=== PATIENT | female | born 1945 | race Caucasian/White ===

== ENCOUNTER 2017-08-29 07:51 | Outpatient (CLI) | payer MEDICARE, BC ==
--- NOTE | 2017-08-29 13:42 | PET ---
PET CT: HISTORY: 72-year-old female with solitary pulmonary nodule. TECHNIQUE: PET scanning with CT attenuation correction was performed from the base of the brain through the pro ximal thighs following the intravenous administration of 12 mCi F18-FDG in the left antecubital henrique a. COMPARISON: None. CORRELATION: CT chest dated 08/22/17. FINDINGS: There is hypermetabolic activity in the 1.5 x 1.3 x 1.3 cm right upper lobe apical segment nodule no roman on the CT scan with a SUV of 5.1. No other hypermetabolic parenchymal lung nodules are seen. No hypermetabolic mediastinal, hilar, axillary, cervical, or abdominopelvic lymph nodes are identifi ed. No FDG-avid lesions are seen in the liver, adrenal glands, or the skeleton. There is physiologic activity in the GI and tracts, heart, and visualized portions of the brain. The CT scan used for attenuation correction demonstrates no evidence of pleural effusions or ascites . IMPRESSION: Findings suspicious for right lung malignancy. No evidence of metastatic disease. POS: [facility]
== END 2017-08-29 07:52 | disposition home or self-care (01) ==
LOC: PET 07:51
PROVIDERS: ATTEND Internal Medicine
DX: R91.1 Solitary pulmonary nodule (principal)
CPT/HCPCS: 78815; A9552

== ENCOUNTER 2017-09-28 09:12 | Outpatient (CLI) | payer MEDICARE, BC ==
--- NOTE | 2017-10-02 09:58 | PFT ---
PATIENT HISTORY: HEIGHT: 55 IN WEIGHT:134 LBS SMOKER: YES HOW LON YEARS PACKS PER DAY: 1.5 PRODUCTIVE COUGH: YES LUNG DISEASE: LUNG NODULE PHYSICIAN INTERPRETATION FINAL REPORT: The patient had good effort and cooperation. PFT data is as follows, FVC 1.72 (89%), FEV1 1.07 (83%), FEV1/FVC 0.62. Diffusion 12.41 (81%). The FEV1 and FVC both fall within the lower limits of normal. The ratio is consistent with obstructive airflow limitation. Diffusion capacity is normal. Compared to 05/2017 (prior to initiation of chronic medication), there has been a significant improvement in the FEV1, FVC, and diffusion capacity. IMPRESSION: Overall, these pulmonary function studies are consistent with mild obstructive lung disease with gas exchange at the lower limits of normal. Line Supervisor: JOMAR [employer] Engine [employer] Consultant: JOMAR ALONSO
== END 2017-09-28 09:13 | disposition home or self-care (01) ==
LOC: CP 09:12
PROVIDERS: ATTEND Internal Medicine
DX: R91.1 Solitary pulmonary nodule (principal)
CPT/HCPCS: 94060; 94729

== ENCOUNTER 2017-10-18 06:03 | Inpatient (IN) | payer MEDICARE, BC ==
[2017-10-18] MEDS ORDERED: CEFAZOLIN/Water 2 GM/20 ML SYRINGE ONE ×2 (06:24→18:14)
[2017-10-18 06:58] LABS: Hemoglobin 14.3 g/dL (12.0-16.0); Mean Corpuscular Hemoglobin 29.6 pg (27.0-31.0); Mean Corpuscular Volume 92.6 fl (81.0-99.0); Mean Platelet Volume 7.3 fL (7.4-10.4); Platelet Count 324 thou/uL (130-400); RBC Distribution Width 13.5 % (11.5-14.5); Red Blood Cell (RBC) Count 4.84 mill/uL (4.20-5.40); White Blood Cell (WBC) Count 7.9 thou/uL (4.8-10.8)
[2017-10-18] MEDS ORDERED: Midazolam HCl 2 mg/2 ml Vial ONE (07:04)
[2017-10-18 07:08] LABS: Anion Gap 18 mmol/L (10-20); BUN (Urea Nitrogen) 26 mg/dL (9.8-20.1); Calc. Creatinine Clearance 60 mL/min (70-130); Calcium 10.2 mg/dL (7.8-10.44); Carbon Dioxide 25 mmol/L (23-31); Chloride 102 mmol/L (98-107); Estimated GFR-MDRD 69; Glucose 115 mg/dL (83-110); Potassium 4.7 mmol/L (3.5-5.1); Sodium 140 mmol/L (136-145)
[2017-10-18 07:15] LABS: INR-International Normal Ratio 0.9; PTT 33.8 SEC (22.9-36.1); Prothrombin Time 12.3 SEC (12.0-14.7)
[2017-10-18] MEDS ORDERED: Fentanyl 100 MCG/2 ML VIAL ONE ×5 (07:27→12:03)
[2017-10-18] MEDS ORDERED: Ondansetron HCl/PF 4 MG/2 ML Vial IVP PRN ×2 (08:15→09:09)
[2017-10-18] MEDS ORDERED: Zolpidem Tartrate 5 MG TAB PO PRN (08:15)
[2017-10-18] MEDS ORDERED: Naloxone HCl 0.4 mg/ml Vial IVP PRN (08:15)
[2017-10-18] MEDS ORDERED: Bupivacaine 0.25% 10 ML VIAL EPIDURAL PRN (08:15)
[2017-10-18] MEDS ORDERED: diphenhydrAMINE 50 MG/ML VIAL IM PRN (08:15)
[2017-10-18] MEDS ORDERED: Promethazine HCl 25 MG/ML VIAL IM PRN ×2 (08:15→09:09)
[2017-10-18] MEDS ORDERED: Eucerin (Mineral Oil/Petrolatum,White) 30 gm Jar TOP PRN (08:15)
[2017-10-18] MEDS ORDERED: diphenhydrAMINE 25 MG CAP PO PRN (08:15)
[2017-10-18] MEDS ORDERED: traMADol HCl 50 MG TAB PO PRN ×2 (08:15)
[2017-10-18] MEDS ORDERED: Fentanyl/Bupivacaine 250 ML in Premix Bag 1 BAG EPIDURAL SCH (08:15)
[2017-10-18] MEDS ORDERED: Promethazine HCl 25 MG SUPP PR PRN (08:15)
[2017-10-18] MEDS ORDERED: HYDROcodone/Acetaminophen 5/325 mg Tablet PO PRN ×5 (08:15→23:14)
[2017-10-18] MEDS ORDERED: Naloxone HCl 0.4 mg/ml Vial IV PRN (08:15)
[2017-10-18] MEDS ORDERED: diphenhydrAMINE 50 MG/ML VIAL IVP PRN (08:15)
[2017-10-18] MEDS ORDERED: Bupivacaine/Epinephrine 0.25% 30 ML VIAL ONE (08:27)
[2017-10-18] MEDS ORDERED: Promethazine HCl 25 MG/ML VIAL SLOW IVP PRN (09:09)
[2017-10-18] MEDS ORDERED: Albuterol Sulfate HFA (OR ONLY) ONE (09:35)
--- NOTE | 2017-10-18 11:16 | OP ---
DATE OF PROCEDURE: 10/18/2017 PREOPERATIVE DIAGNOSIS: Right upper lobe lung mass - PET positive. POSTOPERATIVE DIAGNOSIS: Right upper lobe nonsmall cell lung cancer. PROCEDURE PERFORMED: Right thoracotomy with right upper lobectomy and mediastinal lymph node dissect ion. SURGEON: Juventino Bai M.D. ANESTHESIA: General endotracheal. ESTIMATED BLOOD LOSS: Less than 100. DRAINS: A 32-English chest tubes x2. SPECIMENS 1. Level 2R, 4R, 9R and 7 lymph nodes sent for routine pathologic exam. 2. Right upper lobe sent for frozen section on the mass and bronchial margin - mass showed a nonsmal l cell lung cancer with negative bronchial margin. PROCEDURE IN DETAIL: After consent was obtained, the patient was brought to the operating room and p laced in the supine position on the operating room table. Appropriate anesthetic monitor was placed and general endotracheal anesthesia induced. A right-sided 7-English subclavian central line was plac ed and secured to the skin with a silk suture. Sterile dressing was applied. The patient was placed in the left lateral decubitus position. Joints were appropriately padded and SCDs used. Right ches t wall was prepped and draped in usual sterile fashion. Posterolateral thoracotomy incision was made . Dissection through the platysma was obtained with electrocautery. Serratus was spared. The fifth interspace was entered. The lung was deflated and inflated nicely. On exploration, there is no ruma dence of pleural implants. The hilum was mobilized. Levels 7 and 9 lymph nodes were taken. Paratra cheal level 2R and 4R lymph nodes were also taken. After the hilum was mobilized, the right upper lo be pulmonary veins were identified and divided with a vascular stapler. Apical branches of the right -sided pulmonary artery were divided with the stapler. The fissure was then explored. Once the pulm onary artery was encountered within the fissure, the anterior major fissure was divided with the stap ler. This allowed us to free up the remainder of the pulmonary artery branches going into the upper lobe. The posterior fissure was then divided with multiple JOSE ANTONIO stapler fires. The bronchus was isol ated and clamped with a JOSE ANTONIO stapler. I was not happy with the aeration of the lower and middle lobes . We used the bronchoscope to evaluate the endotracheal tube and had to manipulate the tube to obtai n good aeration of the lower middle lobes. Once this was performed, the upper lobe bronchus was divi ded with a JOSE ANTONIO stapler. Specimen was sent for the above pathologic exam, which returned as nonsmall cell lung cancer. A 32-English chest tubes were placed in the mediastinum. The chest was filled with water and the bron chial stump was tested under 40 mm of pressure and was airtight. After irrigating the chest, the mid dle and lower lobes were reinflated. Middle lobe was secured to the lower lobe with three separate 2 -0 Vicryl sutures. The pericostal spaces were infiltrated with 0.25% Marcaine with epinephrine. The ribs were reapproximated with #1 Vicryl. The pericostal sutures were then tied. Wounds were irriga roman and closed in multiple layers, and Dermabond applied to the skin. The patient tolerated the proc edure well, was awakened, extubated, and transferred to the recovery room in stable condition. Needl e, sponge, and instrument counts were all reported as correct at the end of the procedure.
[2017-10-18] MEDS ORDERED: Propofol 200 MG/20 ML VIAL ONE (13:01)
[2017-10-18] MEDS ORDERED: Ondansetron HCl/PF 4 MG/2 ML Vial ONE (13:01)
[2017-10-18] MEDS ORDERED: Lidocaine 1% PF 5 ML VIAL ONE (13:01)
[2017-10-18] MEDS ORDERED: Dexamethasone 20 MG/5 ML VIAL ONE (13:01)
[2017-10-18] MEDS ORDERED: ePHEDrine/0.9% NaCl/PF SYRINGE 50 mg/10 ml ONE (13:01)
[2017-10-18] MEDS ORDERED: Glycopyrrolate 0.2 MG/ML 5 ML SYRINGE ONE (13:01)
--- NOTE | 2017-10-18 13:02 | RAD ---
PORTABLE CHEST ONE VIEW: 10/18/2017 11:47 a.m. HISTORY: Right lung cancer. Thoracotomy. FINDINGS: Postop changes in the right hilar region. A right subclavian central line is present with the tip in the projection of the right atrium. Two right-sided chest tubes are noted. The heart size is dionicio l. The aorta is tortuous. There is subcutaneous emphysema in the right lower lateral chest wall. N o definite pneumothoraces are seen. POS: [facility]
[2017-10-18] MEDS ORDERED: PHENYLEPHRINE-NS 100 MCG/ML 10 ML SYRINGE ONE (13:11)
[2017-10-18] MEDS ORDERED: Ropivacaine 0.2% HCl/PF 20 ML ONE (13:29)
[2017-10-18] MEDS ORDERED: Phenylephrine 10 MG/NS 250 ML 250 ML IVPB SCH (13:30)
[2017-10-18] MEDS ORDERED: PROVENTIL INHALER 6.7 G (200 INHALATIONS) INH PRN (15:45)
[2017-10-18] MEDS ORDERED: Phenylephrine 10 MG/NS 250 ML 250 ML IVPB PRN (15:45)
[2017-10-18] MEDS ORDERED: diphenhydrAMINE 50 MG/ML VIAL ONE (19:17)
[2017-10-18] MEDS: CEFAZOLIN/Water 2 GM/20 ML SYRINGE SLOW IVP SCH (23:44)
[2017-10-18] MEDS: Sodium Chloride 0.9% 1,000 ML IV SCH ×2 (23:44→23:45)
[2017-10-19] MEDS: CEFAZOLIN/Water 2 GM/20 ML SYRINGE SLOW IVP SCH ×3 (00:59→17:48)
[2017-10-19] MEDS: HYDROcodone/Acetaminophen 5/325 mg Tablet PO PRN ×2 (04:14→20:07)
[2017-10-19 05:55] LABS: #Lymphocytes 2.2 thou/uL (1.20-3.40); #Monocytes 1.4 thou/uL (0.11-0.59); #Neutrophils 8.7 thou/uL (1.40-6.50); %Basophils 0.2 % (0.0-1.0); %Eosinophils 0.1 % (0.0-10.0); %Lymphocytes 17.6 % (21.0-51.0); %Monocytes 11.4 % (0.0-10.0); %Neutrophils 70.7 % (42.0-75.0); Hemoglobin 12.5 g/dL (12.0-16.0); Mean Corpuscular Hemoglobin 29.7 pg (27.0-31.0); Mean Corpuscular Volume 95.7 fl (81.0-99.0); Mean Platelet Volume 7.7 fL (7.4-10.4); Platelet Count 279 thou/uL (130-400); RBC Distribution Width 13.7 % (11.5-14.5); White Blood Cell (WBC) Count 12.4 thou/uL (4.8-10.8)
[2017-10-19 06:33] LABS: Anion Gap 10 mmol/L (10-20); BUN (Urea Nitrogen) 21 mg/dL (9.8-20.1); Calc. Creatinine Clearance 72 mL/min (70-130); Calcium 8.6 mg/dL (7.8-10.44); Carbon Dioxide 28 mmol/L (23-31); Chloride 104 mmol/L (98-107); Estimated GFR-MDRD 79; Glucose 108 mg/dL (83-110); Potassium 4.3 mmol/L (3.5-5.1); Sodium 138 mmol/L (136-145)
--- NOTE | 2017-10-19 08:22 | RAD ---
PORTABLE CHEST 1 VIEW: DATE: 10/19/17. TIME: 4:36 a.m. HISTORY: Right lung cancer, thoracotomy. FINDINGS: Line and tube placements are unchanged in position. Postop changes in the right hilar region are aga in seen. A tiny right apical pneumothorax is noted which was not seen on the previous study. There is patchy consolidation in the right medial lung. The heart size is stable. The left lung is clear. POS: [facility]
[2017-10-19] MEDS: Sodium Chloride 0.9% 1,000 ML IV SCH ×2 (08:58→20:17)
[2017-10-19] MEDS ORDERED: FLU VACC TS2017-18 (>65YR) 0.5 ML SYRINGE IM ONE (09:00)
[2017-10-19] MEDS ORDERED: ANORO ELLIPTA INH SCH (09:00)
[2017-10-19] MEDS: Hydrochlorothiazide 25 MG TAB PO SCH (09:43)
[2017-10-19] MEDS: Losartan 25 MG TAB PO SCH (09:43)
[2017-10-19] MEDS ORDERED: predniSONE 20 MG TAB PO SCH (17:30)
--- NOTE | 2017-10-19 18:15 | CON ---
DATE OF CONSULTATION: 10/19/2017 SERVICE: Pulmonary Medicine. REASON FOR CONSULTATION: [facility] patient. HISTORY OF PRESENT ILLNESS: The patient is a very pleasant 72-year-old white female with past medical history significant for pulmonary nodule. It was subjected to biopsy 2 years ago and was nondiagnostic. We elected to follow with serial CT scans and it showed minimal growth over a protracted course. As such, PET scan was done and it was barely PET positive. As such, we elected to perform an open biopsy of this thing and on frozen, it turned out to be non- small cell lung cancer. As such, she underwent a lobectomy. She is postop day #1 from this surgery and is doing okay. Her pain is under adequate control right now, but in order to achieve that, it affects her blood pressure a little bit. Urine output is good. Her mentation is okay. She finds herself a little bit sleepy because of the pain medication. She has some pain that prevents her from taking deep breaths or coughing. She presented to the hospital and is in usual state of health. PHYSICAL EXAMINATION: VITAL SIGNS: Afebrile, pulse 118/59, respirations 20, saturation 95% on 2 liters nasal cannula. GENERAL: The patient is awake, but somnolent. No apparent distress. LUNGS: Decent air entry. There is a prolonged expiratory phase with some wheezing present. HEART: Normal rate, regular. ABDOMEN: Soft, nontender, nondistended. Bowel sounds are positive. MUSCULOSKELETAL: No cyanosis or clubbing. There is no pitting in the bilateral lower extremities. NEUROLOGIC: Grossly nonfocal. PAST MEDICAL HISTORY: 1. COPD. 2. Anxiety disorder. 3. Hypertension. 4. Nephrolithiasis. 5. Parathyroid disease. 6. Non-small cell lung cancer. PAST SURGICAL HISTORY: 1. Excision of vulvar lesion (genital warts). 2. Parathyroidectomy. 3. History of right breast cancer. 4. Transcutaneous pulmonary biopsy of a pulmonary nodule. 5. Upper lobectomy. SOCIAL HISTORY: The patient has an 12-xkms-etbs history of smoking. She denies any alcohol or illicit drug use. She has no exposure to chemicals, dust , asbestos, or tuberculosis. FAMILY HISTORY: Noncontributory. ALLERGIES: VALIUM causes agitation. ASPIRIN and IBUPROFEN cause nausea. CIPRO causes anaphylaxis. MEDICATIONS: List of inpatient medications were reviewed. Couple of small updates were made. REVIEW OF SYSTEMS: General, head, ears, eyes, nose, throat, cardiovascular, respiratory, GI, , musculoskeletal, neurologic and skin is negative except as mentioned in the HPI. LABORATORY DATA: WBC 12.4, hemoglobin 12.5, platelets 279,000. INR 0.9. Basic metabolic profile is completely unremarkable. IMAGING: Chest x-ray demonstrates right-sided thoracostomy drain. There is an infiltrate in the right hilum. A very small pneumothorax is currently present. Volume loss is on the right. Interstitial markings are prominent. Clips were at the right hilum which were new. ASSESSMENT: 1. Acute hypoxic respiratory failure. 2. Chronic obstructive pulmonary disease with small exacerbation. 3. Right upper lobectomy, postop day #1. 4. Non-small cell cancer of the right upper lobe, status post lobectomy with lymph node biopsy, currently pending. PLAN: I have talked to anesthesia and because of marginally low blood pressures , we will hold the epidural for the time being and restart at half that dose, once she starts having increasing discomfort. If that does not help, a small bolus of fluid may be considered. The patient has extensive wheezing, particularly on the right. As such, I will empirically initiate her on a 5-day course of moderate dose of steroids. Antibiotic will be added. Pulmonary and Critical Care will continue to follow while the patient remains in this location. She has been counseled to make certain she continues to make efforts to take a deep breath and cough without holding it back in order to prevent her from having a postop complication in the next 5-10 days. 70 minutes have been devoted to this patient in various activities. For at least half of this time, I was at the bedside in direct patient interaction or coordinating care with the care team. For the remainder of the time I was immediately available to the patient in the hospital unit. CELESTE
[2017-10-20] MEDS: CEFAZOLIN/Water 2 GM/20 ML SYRINGE SLOW IVP SCH ×2 (02:35→11:19)
[2017-10-20] MEDS: Sodium Chloride 0.9% 1,000 ML IV SCH (06:38)
[2017-10-20] MEDS ORDERED: predniSONE 20 MG TAB PO SCH ×3 (08:00→10:30)
--- NOTE | 2017-10-20 08:57 | RAD ---
CHEST 1 VIEW: HISTORY: A 72-year-old female status post right thoracotomy. COMPARISON: 10/19/17. FINDINGS: Right subclavian catheter and [address] in place with minimal subcutaneous emphysema. The well-defined right apical pneumothorax is not definitely demonstrated, but there is still some scatte red lucency in the right apical region suggesting that there is still some persistent small pneumotho rax. There is right-sided volume loss and abnormal opacification in the right mid and lower lung zon e which appears to be somewhat more dense and opaque than on the prior study. IMPRESSION: Right-sided postoperative changes with abnormal opacity in the right mid and lower lung zone becoming more dense than on the prior study. Possible tiny residual right apical pneumothorax. Slightly pro gressive left-sided vascular congestion with some blunting of the left costophrenic angle. Continued short-term followup for clearing or stability. POS: [facility]
[2017-10-20] MEDS: Hydrochlorothiazide 25 MG TAB PO SCH (09:32)
[2017-10-20] MEDS: Losartan 25 MG TAB PO SCH (09:32)
[2017-10-20] MEDS: ANORO ELLIPTA INH SCH (09:33)
[2017-10-20] MEDS: Hydrocortisone Sod Succ/PF 100 mg/2 ml Vial IVP SCH ×2 (09:39→20:20)
[2017-10-20] MEDS ORDERED: cefTRIAXone\\ROCEPHIN 2 GM in Sodium Chloride 0.9% 100 ML IVPB SCH (10:00)
[2017-10-20] MEDS ORDERED: Sodium Chloride 0.9% 1,000 ML IV SCH (10:32)
[2017-10-20] MEDS ORDERED: Furosemide 20 MG/2 ML VIAL SLOW IVP SCH (10:45)
--- NOTE | 2017-10-20 11:29 | PRG ---
DATE OF SERVICE: 10/20/2017 SERVICE: Pulmonary Medicine. INTERVAL HISTORY: The patient is doing poorly from a respiratory standpoint. She has increased work of breathing. She has more wheezing and rhonchi. She indicates that she is having a little bit more difficulty catching her breath. Other than that, there has been no interval change to her condition. Her blood pressure has actually stabilized to touch. I asked her to cough and deep breathe. Even though, she indicates that she has adequate pain control at this time, she is not really able to do either one of these features. The reason is because she is probably full of air and has had a difficult time generating an expulsive cough. She is not getting her Anoro. This will be discontinued. We will just focus on giving her frequent nebulized medications. PHYSICAL EXAMINATION: VITAL SIGNS: Afebrile, pulse 75, blood pressure 163/58, respirations 16, saturation 91% on 3 liters nasal cannula. GENERAL: The patient is awake and alert. She is in mild respiratory distress. HEART: Normal rate, regular. ABDOMEN: Soft, nontender, nondistended. Bowel sounds are positive. LUNGS: Decreased air entry. There is a prolonged expiratory phase. I appreciate wheezing, rhonchi, and crackles. MUSCULOSKELETAL: No cyanosis or clubbing. She has trace pitting in the left upper extremity. GENITOURINARY: Cesar catheter in place. NEUROLOGIC: Grossly nonfocal. LABORATORY DATA: WBC 12.4, hemoglobin 12.5, platelets 279,000. INR 0.9. Basic metabolic profile is unremarkable with a creatinine of 0.72. IMAGING: Chest x-ray demonstrates increasing airspace disease on the right side with a likely pleural effusion. The area of the hematoma that I previously identified, may there will be partial collapse of some of the lung. This seems to be increasing in volume. There is two thoracostomy drains on the right. The left lung is relatively spared outside of a small density in the left recess of the costophrenic angle. ASSESSMENT: 1. Acute hypoxic respiratory failure. 2. Chronic obstructive pulmonary disease with acute exacerbation. 3. Status post right upper lobectomy. 4. Non-small lung cancer, stage is currently pending. 5. Possible atelectasis. PLAN: I performed physiotherapy on the patient today. If this is ineffective, we may need to intubate her and do a bronchoscopy to see whether or not there is a mucus plug that needs to be liberated. We will watch her very closely through the day. Critical care time: 30 minutes. CELESTE
--- NOTE | 2017-10-20 15:46 | RAD ---
SINGLE VIEW OF THE CHEST: Comparison: 10-20-17 Indication: Post-operative chest radiograph. Follow up. FINDINGS: Re-demonstration of thoracotomy tubes on the right as well as tunneled vascular catheter. There is pe rsistent, diffuse opacification of the right hemithorax. Fluid levels are present which may be on the basis of hydropneumothorax. A discrete pneumothorax component is not otherwise visualized. Left lung remains hyperinflated with interstitial prominence. There is enlargement of the cardiomediastinal si lhouette. IMPRESSION: Diffuse opacification right hemithorax. There is evidence to indicate fluid levels which could be on the basis of hydropneumothorax. Right sided thoracostomy tubes remain in place. Continued follow up i s recommended. POS: [facility]
[2017-10-20] MEDS: Midazolam HCl 2 mg/2 ml Vial ONE ×2 (18:23→18:24)
[2017-10-20] MEDS ORDERED: Propofol 1,000 MG/100 ML VIAL IV ONE (18:29)
[2017-10-20] MEDS ORDERED: Sedation Protocol FS SCH (18:45)
[2017-10-20] MEDS ORDERED: Lacri-Lube Opth Oint 3.5 GM TUBE EA EYE PRN (18:45)
[2017-10-20] MEDS ORDERED: Midazolam HCl 2 mg/2 ml Vial SLOW IVP SCH (19:30)
[2017-10-20] MEDS ORDERED: Sodium Chloride 0.9% 500 ML IV SCH (19:30)
[2017-10-20] MEDS ORDERED: Lorazepam 2 MG/ML VIAL SLOW IVP PRN (19:31)
[2017-10-20] MEDS ORDERED: DISCONTINUE PREVIOUS NARCOTIC PAIN MEDICATIONS AND BENZODIAZEPINES FS SCH (19:31)
[2017-10-20 19:36] LABS: Actual Bicarbonate (HCO3a) 27.2 mEq/L (22-26); Base Excess (BEa) -0.4 mEq/L (0 (+/-) 2.5); CO2 Tension 59.3 mmHg (35.0-45.0); Calcium, Ionized 1.2 mmol/L (1.12-1.30); Hematocrit-ABG 39.5 % (36.0-47.0); Hemoglobin (Hb) 11.4 g/dL (12.0-16.0); O2 Tension (PaO2) 68.2 mmHg (80.0-100.0); pH, Arterial 7.28 (7.35-7.45)
[2017-10-20 19:37] LABS: ALV-art Gradient 151.645 (0-20); Puncture Site RBRACH
[2017-10-20] MEDS ORDERED: fentaNYL Citrate/PF 2,000 MCG in Sodium Chloride 0.9% 60 ML IV SCH (19:45)
[2017-10-20] MEDS: Famotidine 20 MG TAB PER TUBE SCH (20:20)
[2017-10-20] MEDS: Piperacillin/Tazobactam 3.375 GM in Sodium Chloride 0.9% 100 ML IVPB SCH (20:20)
--- NOTE | 2017-10-20 21:35 | RAD ---
CHEST ONE VIEW: HISTORY: Ventilator. COMPARISON: Chest, one view, same day. FINDINGS: The patient is intubated with the endotracheal tube tip above the betsy approximately 2.5 cm. A aubrey tral venous catheter is in place with the tip at the cavoatrial junction. Thoracostomy tubes are pre sent. Improved aeration of the right lung. The left lung is relatively clear. IMPRESSION: 1. Improved aeration of the right lung. 2. Endotracheal tube tip 2.5 cm, craniad to the betsy. POS: [facility]
[2017-10-21] MEDS: Piperacillin/Tazobactam 3.375 GM in Sodium Chloride 0.9% 100 ML IVPB SCH ×4 (02:49→19:51)
[2017-10-21] MEDS: Propofol 1,000 MG/100 ML VIAL IV PRN (02:53)
--- NOTE | 2017-10-21 04:08 | OP ---
DATE OF SERVICE: 10/20/2017 SERVICE: Pulmonary Medicine. PROCEDURES: Fiberoptic bronchoscopy with: 1. Visual airway inspection. 2. Bronchial wash in the right lower lobe. 3. Evacuation of large mucus plug. PREPROCEDURE DIAGNOSES: 1. Acute hypoxic respiratory failure. 2. Atelectasis of the right lung. POSTPROCEDURE DIAGNOSES: 1. Acute hypoxic respiratory failure. 2. Atelectasis of the right lung. PROCEDURE FOURTH GRADE TEACHER: Allan Justin MD MEDICATIONS USED: Propofol, 90 mg push. PREANESTHESIA ASSESSMENT: The patient's medications and allergies were reviewed. The procedure was done urgently secondary to deteriorating clinical condition. DESCRIPTION OF PROCEDURE: A timeout was performed, identifying the correct procedure and patient wit h name and date of . A diagnostic fiberoptic bronchoscope was introduced through the endotrache al tube. The bronchoscope was advanced into the trachea where excessive amounts of green purulent sp utum were identified. It had moderate thickness to it. After this was adequately suctioned, a trach eobronchial tree inspection was carried out. The right upper lobe stump was intact and looked very h ealthy. All right middle lobe, right lower lobe, left upper lobe, lingula, and left lower lobe segme nts were identified. Anatomy was normal to the segmental level. Wash was obtained from the right lo wer lobe. Suctioning created some bleeding from the left lower lobe. After this was subsequently ev acuated, I could not identify clear source of that bleeding. Hemostasis was verified and the broncho scope was subsequently removed from the patient. FINDINGS: 1. No evidence of endobronchial disease was identified. 2. Right upper lobe bronchial stump was intact and healthy appearing. 3. Secretions were heavy and moderate in thickness. SPECIMENS OBTAINED: Bronchial wash from right lower lobe for microbiology. COMPLICATIONS: None. ESTIMATED BLOOD LOSS: 5 mL. FLUOROSCOPY TIME: None. DISPOSITION: The patient will recover on mechanical ventilation in the ICU.
--- NOTE | 2017-10-21 06:53 | OP ---
DATE OF PROCEDURE: 10/20/2017 SERVICE: Pulmonary Medicine. PROCEDURE PERFORMED: Endotracheal intubation. CONSENT: Procedure was performed urgently secondary to clinical condition and respiratory failure. I did discuss the risk associated with this procedure with the patient prior to initiating it. STAFF PHYSICIAN: Dr. lAlan Justin. MEDICATIONS USED: 1. Versed 2 mg IV push. 2. Etomidate 20 mg IV push. PREPROCEDURE DIAGNOSES: 1. Acute hypoxic respiratory failure. 2. Atelectasis of the right lung. POSTPROCEDURE DIAGNOSES: 1. Acute hypoxic respiratory failure. 2. Atelectasis of the right lung. DESCRIPTION OF PROCEDURE: Vital sign monitoring was accomplished by noninvasive hemodynamic monitori ng, pulse oximetry, and telemetry. In the supine position, the patient was preoxygenated with bag valve mask ventilation and maintained with saturations of 100%. Following induction of anesthesia, a GlideScope was inserted through the m outh offering clear identification of the posterior oropharynx and laryngeal structures with a grade 1 view. An endotracheal tube was visualized passing through the vocal cords. Placement was confirme d by condensation in the endotracheal tube and biaxillary chest auscultation. Endotracheal tube was secured at 21 cm, measured at the teeth. The patient was placed on mechanical ventilation with good return of volumes. Postprocedure x-ray, I demonstrate good location of the endotracheal tube within the trachea. ESTIMATED BLOOD LOSS: None. COMPLICATIONS: None.
[2017-10-21] MEDS: Hydrocortisone Sod Succ/PF 100 mg/2 ml Vial IVP SCH (07:52)
[2017-10-21] MEDS: Hydrochlorothiazide 25 MG TAB PO SCH (07:53)
--- NOTE | 2017-10-21 10:47 | RAD ---
PORTABLE CHEST: HISTORY: Post-thoracotomy. COMPARISON: 10/20/17. FINDINGS/IMPRESSION: The patient is rotated which distorts the chest. ET tube remains in place along with right chest tub es. Hazy opacity of the right lung again noted. There is cardiomegaly with evidence of vascular con gestion. POS: [facility]
[2017-10-21] MEDS: ANORO ELLIPTA INH SCH (11:46)
[2017-10-21] MEDS: Dextrose 5 %-0.45 % NaCl 1,000 ML IV SCH ×2 (11:51→23:16)
--- NOTE | 2017-10-21 12:10 | PRG ---
DATE OF SERVICE: 10/21/2017 SERVICE: Pulmonary Medicine. INTERVAL HISTORY: The patient is much improved from a cardiovascular and respiratory standpoint. He r breathing is much less labored. She is currently riding the ventilator. We are going to back off the amount of support that we give her. She is on a minimal amount of propofol and she is perfectly comfortable. Otherwise, there has been no interval change to her condition. I got a repeat chest x- ray and it shows good reexpansion of the lung. Thankfully, pathology came back. All the lymph nodes were negative. The adenocarcinoma of the right upper lobe had very good negative margins. PHYSICAL EXAMINATION: VITAL SIGNS: Afebrile, pulse 66, blood pressure 89/47, respirations 16, saturation 94% on 27% FIO2 a nd a PEEP of 5. GENERAL: The patient is intubated under the influence of minimal sedation. HEENT: Normocephalic, atraumatic. Sclerae are white, conjunctivae pink. Oral and nasal mucosa is m oist without lesions. LUNGS: Excellent air entry. There are extensive rhonchi throughout with a slightly prolonged expira tory phase, but I do not hear the wheezing or crackles any longer. HEART: Normal rate, regular. ABDOMEN: Soft, nontender, nondistended. Bowel sounds are positive. MUSCULOSKELETAL: No cyanosis or clubbing. There is no pitting in the bilateral lower extremities. NEUROLOGIC: Grossly nonfocal. LABORATORY DATA: Respiratory culture on the bronchial washing has very few epithelial cells. Many w [place] blood cells and red blood cells are present. There is a rare gram positive beau. Currently, the re is no evidence of infectious process. IMAGING: Chest x-ray demonstrates excellent reexpansion of the right lung. This film was severely r otated. ASSESSMENT: 1. Acute hypoxic respiratory failure. 2. Chronic obstructive pulmonary disease with acute exacerbation. 3. Right upper lobectomy. 4. Adenocarcinoma of the lung, stage I, status post right upper lobectomy with likely cure. 5. Atelectasis of the right lung, resolved. PLAN: We will continue our antibiotics, steroids, nebulized medications. I will leave her on mechan ical ventilation for the next 24 hours. Tomorrow morning, we will do a brief bronchoscopy to make ce rtain that her lung is clear of any mucous plugs. After this can be arranged, she will be extubated. We will need to aggressively mobilize her. CRITICAL CARE TIME: 30 minutes.
[2017-10-21] MEDS: Morphine 2 MG/ML SYRINGE SLOW IVP PRN ×2 (19:49→22:47)
[2017-10-21] MEDS: Famotidine 20 MG TAB PER TUBE SCH (19:51)
[2017-10-21] MEDS: Acetaminophen 325 MG TAB PO PRN (23:16)
[2017-10-22] MEDS: Morphine 2 MG/ML SYRINGE SLOW IVP PRN ×3 (01:47→20:26)
[2017-10-22] MEDS: Piperacillin/Tazobactam 3.375 GM in Sodium Chloride 0.9% 100 ML IVPB SCH ×4 (01:50→20:26)
[2017-10-22 04:47] LABS: Hemoglobin 9.7 g/dL (12.0-16.0); Red Blood Cell (RBC) Count 3.27 mill/uL (4.20-5.40); White Blood Cell (WBC) Count 10.5 thou/uL (4.8-10.8)
[2017-10-22 04:48] LABS: #Lymphocytes 1.7 thou/uL (1.20-3.40); #Monocytes 1.2 thou/uL (0.11-0.59); #Neutrophils 7.5 thou/uL (1.40-6.50); %Basophils 0.1 % (0.0-1.0); %Eosinophils 0.4 % (0.0-10.0); %Lymphocytes 16.3 % (21.0-51.0); %Monocytes 11.9 % (0.0-10.0); %Neutrophils 71.3 % (42.0-75.0); Mean Corpuscular HGB CONC 31.5 g/dL (32.0-36.0); Mean Corpuscular Hemoglobin 29.7 pg (27.0-31.0); Mean Corpuscular Volume 94.2 fl (81.0-99.0); Mean Platelet Volume 7.8 fL (7.4-10.4); Platelet Count 235 thou/uL (130-400); RBC Distribution Width 13.2 % (11.5-14.5)
[2017-10-22 05:10] LABS: Anion Gap 8 mmol/L (10-20); BUN (Urea Nitrogen) 20 mg/dL (9.8-20.1); Calc. Creatinine Clearance 83 mL/min (70-130); Calcium 8.4 mg/dL (7.8-10.44); Carbon Dioxide 29 mmol/L (23-31); Chloride 105 mmol/L (98-107); Estimated GFR-MDRD Greater than 90; Glucose 118 mg/dL (83-110); Potassium 3.3 mmol/L (3.5-5.1); Sodium 139 mmol/L (136-145)
[2017-10-22 05:13] LABS: Phosphorus 1.7 mg/dL (2.3-4.7)
[2017-10-22] MEDS: Propofol 1,000 MG/100 ML VIAL IV PRN ×2 (07:21→15:08)
[2017-10-22] MEDS ORDERED: Potassium Phosphate 30 MMOL in Sodium Chloride 0.9% 250 ML 250 ML IVPB SCH (07:30)
--- NOTE | 2017-10-22 11:30 | RAD ---
PORTABLE CHEST: HISTORY: Post thoracostomy. CCU followup. COMPARISON: 10/21/2017 FINDINGS: A right chest tube is noted. ET tube, central line, and NG tube appear in adequate position. Cardio megaly. Mild vascular congestion. Interstitial congestion. No pneumothorax. IMPRESSION: No significant interval change. POS: [facility]
[2017-10-22] MEDS: ANORO ELLIPTA INH SCH (13:38)
[2017-10-22] MEDS: Hydrochlorothiazide 25 MG TAB PO SCH (13:38)
[2017-10-22] MEDS: Dextrose 5 %-0.45 % NaCl 1,000 ML IV SCH (13:39)
--- NOTE | 2017-10-22 14:13 | PRG ---
DATE OF SERVICE: 10/22/2017 SERVICE: Pulmonary Medicine. INTERVAL HISTORY: The patient is doing okay from a respiratory standpoint. She continues to have si gnificant amounts of wheezing. She is moving decent air, much better than she did prior. There were no significant overnight events. She is getting some potassium phosphate right now and will need to give her another dose of potassium. Otherwise, we are looking at possibly extubating her today if s he does well with her spontaneous breathing trial and her pain is under good control on a good sedati on holiday. PHYSICAL EXAMINATION: VITAL SIGNS: Afebrile currently with a T-max overnight of 100.8, pulse 63, blood pressure 116/57, re spirations 18, saturation 99% on 30% FiO2 and PEEP of 5. GENERAL: Patient is intubated. She is on influence of some sedation, but is following commands and comfortable. HEENT: Normocephalic, atraumatic. Sclerae are white, conjunctivae pink. Oral and nasal mucosa is m oist without lesions. LUNGS: Decent air entry. Rhonchi are present throughout bilateral lung daniel. There is prolonged expiratory phase with polyphonic wheezing. HEART: Normal rate, regular. ABDOMEN: Soft, nontender, nondistended. Bowel sounds are positive. MUSCULOSKELETAL: No cyanosis or clubbing. There is no pitting in the bilateral lower extremities. NEUROLOGIC: Grossly nonfocal. LABORATORY DATA: WBC 10.5, hemoglobin 9.7, platelets 235,000. INR 0.9. PH 7.2, pCO2 59, pO2 68. P otassium 3.3. Phosphorus 1.7. Basic metabolic profile is otherwise unremarkable. Respiratory cultu re is negative and has some rare normal respiratory balwinder present only. IMAGING: Chest x-ray demonstrates persistent opening of the right lung. There is right-sided pleura l parenchymal opacification, which is essentially diffuse. There are two right-sided thoracostomy dr regina that are in decent position. There is some volume loss on the right lung compared to the lef t. Endotracheal tube remains 2 to 3 cm above the level of the betsy. A right IJ central venous cat heter is in decent position. ASSESSMENT: 1. Acute hypoxic respiratory failure. 2. Chronic obstructive pulmonary disease with acute exacerbation. 3. Right upper lobectomy. 4. Adenocarcinoma of the lung, stage I, status post right upper lobectomy with likely cure as lymph nodes and margins were clean. 5. Atelectasis of the right lung secondary to anemic cough, resolved. PLAN: We will perform a bronchoscopy once again today to see if we can clear out any debris that has accumulated in her lungs or that she has been able to liberate. After this, good sedation holiday a nd spontaneous breathing trial will be performed and if she meets criteria, extubation will be consid ered. If it sounds as though she has a weak cough, extubation will be postponed for 24 hours. CRITICAL CARE TIME: 30 minutes.
[2017-10-22] MEDS: Acetaminophen 325 MG TAB PO PRN (21:45)
[2017-10-22] MEDS: Famotidine 20 MG TAB PER TUBE SCH (21:46)
[2017-10-23] MEDS: Morphine 2 MG/ML SYRINGE SLOW IVP PRN ×2 (00:38→06:20)
[2017-10-23] MEDS: Piperacillin/Tazobactam 3.375 GM in Sodium Chloride 0.9% 100 ML IVPB SCH ×4 (01:46→21:05)
[2017-10-23 06:32] LABS: Hemoglobin 10.5 g/dL (12.0-16.0)
[2017-10-23 06:54] LABS: Anion Gap 14 mmol/L (10-20); BUN (Urea Nitrogen) 17 mg/dL (9.8-20.1); Calc. Creatinine Clearance 82 mL/min (70-130); Carbon Dioxide 26 mmol/L (23-31); Chloride 108 mmol/L (98-107); Estimated GFR-MDRD Greater than 90; Glucose 108 mg/dL (83-110); Magnesium 2.2 mg/dL (1.6-2.6); Potassium 4.2 mmol/L (3.5-5.1); Sodium 144 mmol/L (136-145)
--- NOTE | 2017-10-23 08:05 | RAD ---
PORTABLE AP CHEST XRAY: DATE: 10/23/17. HISTORY: Post thoracotomy. COMPARISON: 10/22/17. FINDINGS: Endotracheal tube, right subclavian central venous catheter, nasogastric tube, and 2 right-sided thor acostomy tubes remain in place and unchanged in position. No pneumothorax is visualized. There is v olume loss in the right hemithorax compared to the left. Pleural-based density at the right lung ape x is noted. Mild increased densities within the right lung are present. Multiple surgical clips ove rlie the mediastinum. The left lung is clear. Vascular calcifications are seen in the thoracic aort a. There is subcutaneous emphysema at the right lateral chest. IMPRESSION: Overall stable chest. POS: KRYSTIN
[2017-10-23] MEDS: ANORO ELLIPTA INH SCH (08:36)
[2017-10-23] MEDS: Hydrochlorothiazide 25 MG TAB PO SCH (08:36)
[2017-10-23] MEDS: Dextrose 5 %-0.45 % NaCl 1,000 ML IV SCH (08:36)
[2017-10-23] MEDS: Labetalol HCl 100 MG/20 ML VIAL SLOW IVP PRN ×3 (11:48→21:30)
[2017-10-23] MEDS ORDERED: Lorazepam 2 MG/ML VIAL SLOW IVP PRN (12:45)
[2017-10-23] MEDS: Lorazepam 2 MG/ML VIAL SLOW IVP PRN ×3 (13:11→23:38)
--- NOTE | 2017-10-23 15:18 | PRG ---
DATE OF SERVICE: 10/23/2017 SERVICE: Pulmonary Medicine. INTERVAL HISTORY: The patient is doing quite well from a respiratory standpoint. This morning, we p ut on spontaneous breathing trial and the better part of 45 minutes, she did fantastic. Toward the e nd of it, she started having a little bit of elevated blood pressures, though all of the other things looked okay. She appeared to be struggling. We put the fan on her and she seemed to calm down slig htly. As such, we are going to proceed with extubation, but there was no cuff leak. She is already on steroids for 2 days and when we intubated her, it was fairly tight squeeze. As such, we elected t o extubate her over a bougie. She demonstrated that she did not have any stridor after extubation. As such, she was placed on nasal cannula. She started having a little increased work of breathing an d was subsequently put BiPAP through humidified circuit. She was pulling on the BiPAP because it was uncomfortable. She indicated that hot air was felt like it was suffocating. As such, the heater wa s turned off. Everything seemed to settle down including blood pressures, volume, and oxygen saturat ion. She continued to be a little anxious. As such, we gave her a small dose of benzodiazepine. Th is settled her down very nicely and she is resting comfortably at this time. Otherwise, there were n o events overnight. PHYSICAL EXAMINATION: VITAL SIGNS: Afebrile, pulse 52, blood pressure 135/57, respirations 17, saturation 100% on 31% FiO2 and PEEP of 5. GENERAL: The patient is awake and alert. She is in no apparent distress. LUNGS: Much improved air entry. There is a slightly prolonged expiratory phase. Rhonchi are presen t bilaterally. HEART: Normal rate and regular. ABDOMEN: Soft, nontender, nondistended. Bowel sounds are positive. MUSCULOSKELETAL: No cyanosis or clubbing. No pitting in the bilateral lower extremities. NEUROLOGIC: Grossly nonfocal. LABORATORY DATA: WBC 10.5, hemoglobin 32.6, INR 0.9. Basic metabolic profile is completely unremark able with sodium of 144. Magnesium 2.2. Blood cultures x2 were negative. Respiratory culture is ne gative to date. IMAGING: Chest x-ray demonstrates stable chest. There is good aeration in the bilateral lung daniel . ASSESSMENT: 1. Acute hypoxic respiratory failure. 2. Chronic obstructive pulmonary disease with acute exacerbation. 3. Right upper lobectomy. 4. Adenocarcinoma of the lung, stage 1, status post curative right upper lobectomy with negative mar gins and negative lymph nodes. 5. Atelectasis of the right lung, resolved. PLAN: We will maintain the patient on BiPAP. She will certainly remain in the ICU for the next 24 h ours while we make an attempt to mobilize the best we can. We will give her a break in an hour. We will also give her break 3 times daily and increase as tolerated. Pulmonary or Critical Care will co donisue to follow while she remains in this location, but it would not surprise me if the patient yoandy olivares required reintubation. I hope to avoid that however. Her pain is under much better control. Hopefully, her cough will be much more vigorous at this time around and hopefully we will not be for robin to proceed with intubation. CRITICAL CARE TIME: 105 minutes.
[2017-10-23 17:30] LABS: Base Excess (BEa) 1.3 mEq/L (0 (+/-) 2.5); CO2 Tension 54.7 mmHg (35.0-45.0); Calcium, Ionized 1.2 mmol/L (1.12-1.30); Hematocrit-ABG 31.7 % (36.0-47.0); O2 Tension (PaO2) 75.7 mmHg (80.0-100.0); pH, Arterial 7.33 (7.35-7.45)
[2017-10-23 17:38] LABS: Puncture Site LR
[2017-10-23 17:39] LABS: ALV-art Gradient 76.335 (0-20)
--- NOTE | 2017-10-23 18:54 | RAD ---
PORTABLE CHEST ONE VIEW 10/23/17 at 4:41 p.m. HISTORY: Respiratory distress, Bi-Pap. FINDINGS/IMPRESSION: There has been interval removal of endotracheal and nasogastric tube since earlier exam of 5:12 a.m. from the same date. The remainder of the exam is otherwise stable. POS: PINEDA
[2017-10-24] MEDS: Labetalol HCl 100 MG/20 ML VIAL SLOW IVP PRN ×2 (00:26→01:45)
[2017-10-24] MEDS: Lorazepam 2 MG/ML VIAL SLOW IVP PRN ×3 (02:06→23:23)
[2017-10-24] MEDS: Piperacillin/Tazobactam 3.375 GM in Sodium Chloride 0.9% 100 ML IVPB SCH ×4 (04:34→20:43)
[2017-10-24] MEDS: Dextrose 5 %-0.45 % NaCl 1,000 ML IV SCH (05:04)
[2017-10-24 05:19] LABS: Anion Gap 10 mmol/L (10-20); BUN (Urea Nitrogen) 18 mg/dL (9.8-20.1); Calc. Creatinine Clearance 89 mL/min (70-130); Calcium 8.9 mg/dL (7.8-10.44); Carbon Dioxide 30 mmol/L (23-31); Chloride 104 mmol/L (98-107); Estimated GFR-MDRD Greater than 90; Glucose 130 mg/dL (83-110); Magnesium 2.1 mg/dL (1.6-2.6); Potassium 4.3 mmol/L (3.5-5.1); Sodium 140 mmol/L (136-145)
[2017-10-24] MEDS ORDERED: ALPRAZolam 0.25 MG TAB PO PRN (07:09)
[2017-10-24] MEDS ORDERED: Furosemide 40 MG/4 ML VIAL SLOW IVP SCH (07:15)
[2017-10-24] MEDS: ANORO ELLIPTA INH SCH (08:24)
--- NOTE | 2017-10-24 08:25 | RAD ---
CHEST ONE VIEW: History: Chest surgery. Follow up. Comparison: 10-23-17 FINDINGS: Cardiac silhouette is magnified and enlarged. Pulmonary vasculature is upper limits of normal. Medias tinum is midline with aortic calcification. Hemostasis clips over the right hilum are again demonstra roman. The right thoracostomy tubes and right subclavian central venous catheter remain in place. No ev idence of pneumothorax. panel monitor leads overlie the chest. IMPRESSION: 1. Stable post-operative appearance of the chest. POS: [facility]
[2017-10-24] MEDS: hydrALAZINE 20 MG/ML VIAL SLOW IVP PRN ×2 (11:54→22:31)
[2017-10-24 14:03] LABS: Actual Bicarbonate (HCO3a) 31.8 mEq/L (22-26); Base Excess (BEa) 5.8 mEq/L (0 (+/-) 2.5); CO2 Tension 53.3 mmHg (35.0-45.0); Calcium, Ionized 1.2 mmol/L (1.12-1.30); Hematocrit-ABG 37.2 % (36.0-47.0); Hemoglobin (Hb) 11.1 g/dL (12.0-16.0); O2 Tension (PaO2) 112.2 mmHg (80.0-100.0); pH, Arterial 7.39 (7.35-7.45)
[2017-10-24 14:04] LABS: ALV-art Gradient 177.675 (0-20); Puncture Site RB
--- NOTE | 2017-10-24 15:36 | RAD ---
ABDOMEN 1 VIEW: Date: 10/24/17 HISTORY: Dobbhoff placement. COMPARISON: None. FINDINGS: Dobbhoff tube is curled upon itself in the gastric fundus. IMPRESSION: Dobbhoff tube tip in gastric fundus. POS: OFF
[2017-10-25] MEDS: Piperacillin/Tazobactam 3.375 GM in Sodium Chloride 0.9% 100 ML IVPB SCH ×2 (02:54→07:51)
[2017-10-25] MEDS: Dextrose 5 %-0.45 % NaCl 1,000 ML IV SCH (03:36)
[2017-10-25 06:01] LABS: Anion Gap 10 mmol/L (10-20); BUN (Urea Nitrogen) 21 mg/dL (9.8-20.1); Calc. Creatinine Clearance 86 mL/min (70-130); Calcium 9.2 mg/dL (7.8-10.44); Carbon Dioxide 34 mmol/L (23-31); Chloride 101 mmol/L (98-107); Estimated GFR-MDRD Greater than 90; Glucose 166 mg/dL (83-110); Potassium 3.3 mmol/L (3.5-5.1); Sodium 142 mmol/L (136-145)
--- NOTE | 2017-10-25 07:59 | RAD ---
PORTABLE SEMIUPRIGHT FRONTAL CHEST RADIOGRAPH: DATE: 10/25/17. COMPARISON: 10/24/17. HISTORY: Evaluate chest following thoracotomy. FINDINGS: Stable right vascular catheter and stable right-sided chest tubes. Dobbhoff tube in place, extending into left upper quadrant. There is interstitial opacity in bilateral perihilar regions, right great er than left. There is hazy airspace disease in both lung bases, left greater than right. There is atherosclerotic calcification of the aortic arch. IMPRESSION: Lines and tubes as above. Interstitial and alveolar opacities bilaterally, stable. Continued follow up to resolution is recommended. POS: PINEDA
[2017-10-25] MEDS: Lorazepam 2 MG/ML VIAL SLOW IVP PRN ×3 (08:55→23:08)
--- NOTE | 2017-10-25 10:13 | PRG ---
DATE OF SERVICE: 10/24/2017 SERVICE: Pulmonary Medicine INTERVAL HISTORY: The patient did very poorly. Her mentation seems to be a pretty big issue. She i s horrendously agitated. I do not really have an organic cause for these episodes. That being said, whenever the BiPAP is removed for a very brief period of time, despite the fact that she has normal hemodynamics and normal oxygen, and moving fantastic air, she gets very agitated and uncomfortable. Typically, her blood pressure will spike. She then decompensates. She requires being put back on th e BiPAP. I have watched 2 of these episodes now. We have been able to get her through both of them without reintubation. That being said, she continues to do this, I am doubtful that we will be able to get her through this without having to repeat the intubation. We made multiple adjustments to sridevi e of her medications. In particular, Precedex was initiated. She cannot provide me any additional o f the history today. There were no overnight events otherwise. PHYSICAL EXAMINATION: VITAL SIGNS: Afebrile, pulse 58, blood pressure 97/56, respirations 17, saturation 100% on 30% FiO2. GENERAL: Patient is awake, but a little agitated. HEENT: Normocephalic, atraumatic. Sclerae are white, conjunctivae pink. Oral mucosa is moist witho ut lesions. LUNGS: Decent air entry. There is both rhonchi, and wheezing present. I do not appreciate any crac kles. HEART: Normal rate, regular. ABDOMEN: Soft, nontender, nondistended. Bowel sounds are positive. MUSCULOSKELETAL: No cyanosis or clubbing. No pitting in the bilateral lower extremities. NEUROLOGIC: Grossly nonfocal. LABORATORY DATA: Basic metabolic profile is completely unremarkable. Magnesium is normal. Blood cu ltures x2 are negative at 48 hours. Bronchial washing is not growing anything. IMAGING: Chest x-ray demonstrates a stable chest. Interstitial and alveolar opacities are present. Abdominal x-ray demonstrates good placement of the enteric catheter. ASSESSMENT: 1. Acute hypoxic respiratory failure. 2. Chronic obstructive pulmonary disease with acute exacerbation. 3. Right upper lobectomy for adenocarcinoma, stage I. 4. Atelectasis of the right lung, resolved. 5. Metabolic encephalopathy. PLAN: We will continue her BiPAP. She is tolerating this fairly well. We will give her p.r.n. dose s of Ativan. I have initiated her on Precedex. Hopefully, we can keep her brain comfortable so that her body is allowed to recover from this event. We encourage physiotherapy. Critical care time: 30 minutes.
[2017-10-25] MEDS: hydrALAZINE 20 MG/ML VIAL SLOW IVP PRN (10:16)
--- NOTE | 2017-10-25 10:16 | PRG ---
DATE OF SERVICE: 10/25/2017 SERVICE: Pulmonary Medicine. INTERVAL HISTORY: The patient has actually done very well on the Precedex. This morning, she is brenden ke and comfortable. She does have a little bit of increased work of breathing on her BiPAP break tod ay. My suspicion is that she will be able to come and go off of this medication. We will work on ge ntly decreasing the Precedex as time goes on to see if we can encourage her to bring up more secretio ns. Supportive care will be continued through the day. She is still little somnolent and can provid e me with additional elements of the history. She had no events overnight. PHYSICAL EXAMINATION: VITAL SIGNS: Afebrile. Pulse 56, blood pressure 137/50, respirations 18, saturation 97% on 31% FiO2 . HEENT: Normocephalic, atraumatic. Sclerae are white, conjunctivae pink. Oral and nasal mucosa is m oist without lesions. LUNGS: Decent air entry. There is prolonged expiratory phase with little wheezing. Rhonchi are pre sent, but clear with cough. HEART: Normal rate, regular. ABDOMEN: Soft, nontender, nondistended. Bowel sounds are positive. MUSCULOSKELETAL: No cyanosis or clubbing. There is no pitting in the bilateral lower extremities. NEUROLOGIC: Grossly nonfocal. LABORATORY DATA: Potassium 3.3. Basic metabolic profile is otherwise unremarkable/stable. BUN is u p trending and bicarbonate has bumped of 34. Magnesium 2.0 and stable. Blood cultures x2 and respir atory culture are negative to date. IMAGING: Chest x-ray demonstrates a stable chest. Her right-sided thoracostomy drain in good positi on. She has stable infiltrates including alveolar interstitial fullness. ASSESSMENT: 1. Acute hypoxic respiratory failure. 2. Chronic obstructive pulmonary disease with acute exacerbation. 3. Right upper lobectomy for removal of adenocarcinoma, stage I. 4. Atelectasis of the lung, resolved. 5. Metabolic encephalopathy, improving. PLAN: We will gently wean the Precedex off as time goes on. She should be given BiPAP breaks 3 time s daily and increase as tolerated. I will leave her normal saline where it is. We are going to cont inue the tube feeds for the next 24 hours. Hopefully, in 1-2 days, the patient will be able to katy ate longer breaks with clear mentation. Physiotherapy will be rescheduled 3 times a day or twice leonie ly. She clearly needs to remain in the ICU.
[2017-10-25] MEDS: Haloperidol Lactate 5 MG/ML VIAL IM PRN ×2 (10:52→16:40)
[2017-10-25] MEDS: ANORO ELLIPTA INH SCH (15:04)
[2017-10-26] MEDS: Dextrose 5 %-0.45 % NaCl 1,000 ML IV SCH ×3 (01:34→21:41)
[2017-10-26] MEDS: hydrALAZINE 20 MG/ML VIAL SLOW IVP PRN (04:06)
[2017-10-26] MEDS: Lorazepam 2 MG/ML VIAL SLOW IVP PRN (04:21)
[2017-10-26] MEDS: Haloperidol Lactate 5 MG/ML VIAL IM PRN (04:50)
[2017-10-26 05:59] LABS: #Eosinphils 0.1 thou/uL (0.0-0.7); #Lymphocytes 1.3 thou/uL (1.20-3.40); #Monocytes 1.3 thou/uL (0.11-0.59); #Neutrophils 9.6 thou/uL (1.40-6.50); %Basophils 0.1 % (0.0-1.0); %Eosinophils 0.7 % (0.0-10.0); %Lymphocytes 10.9 % (21.0-51.0); %Monocytes 10.2 % (0.0-10.0); %Neutrophils 78.1 % (42.0-75.0); Mean Corpuscular HGB CONC 30.6 g/dL (32.0-36.0); Mean Corpuscular Hemoglobin 29.3 pg (27.0-31.0); Mean Corpuscular Volume 95.6 fl (81.0-99.0); Platelet Count 292 thou/uL (130-400); RBC Distribution Width 13.1 % (11.5-14.5); Red Blood Cell (RBC) Count 3.42 mill/uL (4.20-5.40); White Blood Cell (WBC) Count 12.3 thou/uL (4.8-10.8)
[2017-10-26 06:20] LABS: Anion Gap 12 mmol/L (10-20); BUN (Urea Nitrogen) 23 mg/dL (9.8-20.1); Calc. Creatinine Clearance 84 mL/min (70-130); Calcium 9.8 mg/dL (7.8-10.44); Carbon Dioxide 36 mmol/L (23-31); Chloride 102 mmol/L (98-107); Estimated GFR-MDRD Greater than 90; Glucose 146 mg/dL (83-110); Potassium 3.7 mmol/L (3.5-5.1); Sodium 146 mmol/L (136-145)
--- NOTE | 2017-10-26 08:32 | RAD ---
PORTABLE CHEST: DATE: 10/26/17. PROVIDED CLINICAL HISTORY: Status post thoracotomy. FINDINGS: Comparison is made with the study dated 10/25/17. Lucency at the right lung apex could reflect pleura l gas. Right-sided chest tubes remain in place. Right-sided central line and enteric catheter again seen. Appearance of the pulmonary parenchyma is unchanged with respect to the prior study. IMPRESSION: Right apical lucency may reflect pleural gas. Otherwise, stable exam. POS: KRYSTIN
[2017-10-26] MEDS: ANORO ELLIPTA INH SCH (08:34)
[2017-10-26] MEDS ORDERED: Propofol 1,000 MG/100 ML VIAL IV ONE (09:43)
[2017-10-26] MEDS ORDERED: Sedation Protocol FS ONE (10:00)
[2017-10-26] MEDS ORDERED: Lacri-Lube Opth Oint 3.5 GM TUBE EA EYE PRN (10:00)
[2017-10-26] MEDS ORDERED: Sodium Chloride 0.9% 1,000 ML IV SCH (10:00)
--- NOTE | 2017-10-26 10:25 | PRG ---
DATE OF SERVICE: 10/26/2017 SERVICE: Pulmonary Medicine. INTERVAL HISTORY: The patient was doing poorly overnight. She never tolerated any breaks from the B iPAP yesterday very well. This morning, we attempted to give her BiPAP break again and almost immedi ately, she decompensated. She was short-winded and had increasing work of breathing. She became mor e encephalopathic. As such, we elected to intubate her. She will likely require tracheostomy throug h this hospital stay. I do not think she will need a feeding tube; however. I have updated the fami ly at bedside. PHYSICAL EXAMINATION: VITAL SIGNS: Afebrile, pulse 87, blood pressure 167/76, respirations 23, saturation 96% on 41% FiO2. GENERAL: The patient is awake and alert. Patient is intubated and encephalopathic. HEENT: Normocephalic, atraumatic. Sclerae are white, conjunctivae pink. Oral and nasal mucosa is m oist without lesions. LUNGS: Decent air entry. Rhonchi and wheezing are both present. No crackles. HEART: Normal rate, regular. ABDOMEN: Soft, nontender, nondistended. Bowel sounds are positive. MUSCULOSKELETAL: No cyanosis or clubbing. No pitting in the bilateral lower extremities. NEUROLOGIC: Grossly nonfocal. LABORATORY DATA: WBC 12.3, hemoglobin 10.0, platelets 292,000. INR 0.9. Sodium 146, bicarbonate 36 , and creatinine 0.58. Blood cultures x2 are negative. Respiratory cultures also unremarkable. IMAGING: Chest x-ray demonstrates excellent placement of endotracheal tube. There is a right hilar infiltrate. Outside of that, there is good expansion of the right lung with thoracostomy drains in p lace. I do not see any other acute cardiopulmonary abnormalities except for some interstitial fullne ss throughout the left lung. ASSESSMENT: 1. Acute hypoxic respiratory failure. 2. Chronic obstructive pulmonary disease with acute exacerbation. 3. Metabolic encephalopathy. 4. Hypernatremia. 5. Right upper lobectomy for removal of adenocarcinoma, stage 1. PLAN: We will continue Precedex and add a little propofol if needed after we intubate her. Multiple ventilator adjustments have been made at bedside in order to make certain the patient remains comfor table. She will likely go down for tracheostomy, but I do not think she needs a PEG tube at this santy e. She most likely will be able to transition out to an LTAC facility with a Dobbhoff tube in place as I think she will wean fairly quickly once we get her brain working correctly. Neurologically, she remains nonfocal. Supportive care will otherwise be continued. I will check a respiratory virus reji south to make certain the patient is not having any additional inflammation secondary to viruses. We w ill initiate tube feeds starting tomorrow morning as she had extraordinarily high residuals today. Jon harish will give her a liter of IV fluids and initiate a little bit of free water as the patient does michael pace demonstrated contraction alkalosis. CRITICAL CARE TIME: 50 minutes.
[2017-10-26 10:41] LABS: Actual Bicarbonate (HCO3a) 33.4 mEq/L (22-26); Base Excess (BEa) 7.3 mEq/L (0 (+/-) 2.5); CO2 Tension 57.1 mmHg (35.0-45.0); Calcium, Ionized 1.2 mmol/L (1.12-1.30); Hematocrit-ABG 26.3 % (36.0-47.0); Hemoglobin (Hb) 8.3 g/dL (12.0-16.0); O2 Tension (PaO2) 56.2 mmHg (80.0-100.0); pH, Arterial 7.39 (7.35-7.45)
[2017-10-26 10:42] LABS: ALV-art Gradient 161.065 (0-20); Puncture Site RBA
--- NOTE | 2017-10-26 10:52 | RAD ---
PORTABLE CHEST: Date: 10/26/17 PROVIDED CLINICAL HISTORY: Respiratory insufficiency. FINDINGS: Comparison made with examination performed earlier same date. Interval placement of endotracheal tube, tip of which projects I the region of the thoracic inlet. Ad ditional significant interval change with respect to the prior examination is not apparent. IMPRESSION: As above. POS: [facility]
[2017-10-26] MEDS ORDERED: Lorazepam 2 MG/ML VIAL SLOW IVP PRN (11:20)
[2017-10-26] MEDS ORDERED: fentaNYL Citrate/PF 2,000 MCG in Sodium Chloride 0.9% 60 ML IV SCH (11:20)
[2017-10-26] MEDS ORDERED: DISCONTINUE PREVIOUS NARCOTIC PAIN MEDICATIONS AND BENZODIAZEPINES FS SCH (11:20)
--- NOTE | 2017-10-26 19:31 | EKG ---
Test Reason : PREOP Blood Pressure : / mmHG Vent. Rate : 056 BPM Atrial Rate : 056 BPM P-R Int : 214 ms QRS Dur : 100 ms QT Int : 456 ms P-R-T Axes : 073 065 089 degrees QTc Int : 440 ms Sinus bradycardia with 1st degree A-V block ST abnormality, possible digitalis effect Abnormal ECG When compared with ECG of 12-MAR-1997 15:44, Nonspecific T wave abnormality now evident in Lateral leads Confirmed by JOHN ROBLES (2) on 10/26/2017 7:30:33 PM Referred By: Stacey GUAJARDO Confirmed By:JOHN ROBLES
[2017-10-26] MEDS ORDERED: Sodium Chloride 0.9% 500 ML IVPB SCH (21:15)
[2017-10-26] MEDS: Propofol 1,000 MG/100 ML VIAL IV PRN (22:33)
[2017-10-27] MEDS: Dextrose 5 %-0.45 % NaCl 1,000 ML IV SCH ×2 (04:57→16:44)
[2017-10-27 05:13] LABS: #Eosinphils 0.1 thou/uL (0.0-0.7); #Lymphocytes 1.5 thou/uL (1.20-3.40); #Neutrophils 6.6 thou/uL (1.40-6.50); %Eosinophils 1.2 % (0.0-10.0); %Lymphocytes 16.4 % (21.0-51.0); %Monocytes 11.2 % (0.0-10.0); %Neutrophils 71.2 % (42.0-75.0); Hemoglobin 8.5 g/dL (12.0-16.0); Mean Corpuscular HGB CONC 31.9 g/dL (32.0-36.0); Mean Corpuscular Hemoglobin 30.1 pg (27.0-31.0); Mean Corpuscular Volume 94.2 fl (81.0-99.0); Mean Platelet Volume 7.8 fL (7.4-10.4); Platelet Count 251 thou/uL (130-400); RBC Distribution Width 13.1 % (11.5-14.5); Red Blood Cell (RBC) Count 2.84 mill/uL (4.20-5.40); White Blood Cell (WBC) Count 9.2 thou/uL (4.8-10.8)
[2017-10-27 05:20] LABS: Anion Gap 11 mmol/L (10-20); BUN (Urea Nitrogen) 16 mg/dL (9.8-20.1); Calc. Creatinine Clearance 96 mL/min (70-130); Calcium 8.6 mg/dL (7.8-10.44); Carbon Dioxide 29 mmol/L (23-31); Chloride 106 mmol/L (98-107); Estimated GFR-MDRD Greater than 90; Glucose 126 mg/dL (83-110); Potassium 3.2 mmol/L (3.5-5.1); Sodium 143 mmol/L (136-145)
[2017-10-27] MEDS: ANORO ELLIPTA INH SCH (08:11)
--- NOTE | 2017-10-27 08:50 | RAD ---
PORTABLE SEMIUPRIGHT FRONTAL CHEST RADIOGRAPH: Date: 10/27/17 COMPARISON: 10/26/17. HISTORY: Evaluate chest following thoracotomy. FINDINGS: There is an endotracheal tube in place, slightly low lying, probably within 2.0 cm of the betsy. bhoff tube extends into left upper quadrant. Two right-sided chest tubes are in stable position. Righ t-sided vascular catheter is noted. There is hazy interstitial and alveolar opacity in the perihilar regions and both lung bases with sma ll volume pleural fluid and/or pleural thickening in the right lung base, and increased density in th e right perihilar region which could represent volume loss, mass, or adenopathy. IMPRESSION: No significant interval change. POS: KRYSTIN
[2017-10-27] MEDS: Famotidine 20 MG TAB PO SCH ×2 (10:38→21:20)
[2017-10-27] MEDS: Enoxaparin Sodium 40 MG/0.4 ML SYRINGE SC SCH (10:38)
[2017-10-27] MEDS ORDERED: Fentanyl 100 MCG/2 ML VIAL ONE (10:49)
[2017-10-27] MEDS: Propofol 1,000 MG/100 ML VIAL IV PRN (10:50)
--- NOTE | 2017-10-27 13:57 | RAD ---
SINGLE VIEW OF THE CHEST: HISTORY: Status post tracheostomy. COMPARISON: 10/27/2017 at 4:34 a.m. FINDINGS: A single view of the chest shows an enlarged but stable cardiomediastinal silhouette. The endotrache al tube has been replaced with a tracheostomy, which appears in good position. The other lines and t ubes are unchanged in position. No pneumothorax is seen. There appear to be subtle infiltrates in t he right lung. IMPRESSION: Status post tracheostomy without evidence of complication. POS: KRYSTIN
[2017-10-27] MEDS ORDERED: PHENYLEPHRINE-NS 100 MCG/ML 10 ML SYRINGE ONE (14:08)
--- NOTE | 2017-10-27 15:32 | PRG ---
DATE OF SERVICE: 10/27/2017 SERVICE: Pulmonary Medicine. INTERVAL HISTORY: The patient is doing poorly from a respiratory standpoint. She demonstrated some tachypnea this morning. She has increasing oxygen requirement. She is going down for tracheostomy t [place]. After the tracheostomy; however, it was completely different picture. She is cool, calm, and collected. She is breathing nice and slow, and her oxygen requirements are decreasing. She has gett ing improved volumes with less pressure support. She is requiring less sedation as well. Overall, s he had a fantastic response to having this tracheostomy in place. PHYSICAL EXAMINATION: VITAL SIGNS: Afebrile, pulse 76, blood pressure 139/80, respirations 24, saturation 98% on 40% FiO2 and a PEEP of 5. GENERAL: The patient is intubated. She is under the influence of some sedation, but much less. HEENT: Normocephalic, atraumatic. Sclerae are white, conjunctivae pink. Oral mucosa is moist witho ut lesions. NECK: There is fresh tracheostomy in good position. It is clean, dry, and intact. There is a littl e bit dried blood there, but nothing active. LUNGS: Improved air entry. Rhonchi are present. There is a prolonged expiratory phase, but I do no t appreciate polyphonic wheezing any longer. No crackles. HEART: Normal rate, regular. ABDOMEN: Soft, nontender, nondistended. Bowel sounds are positive. MUSCULOSKELETAL: No cyanosis or clubbing. No pitting in the bilateral lower extremities. NEUROLOGIC: Grossly nonfocal. LABORATORY DATA: WBC 9.2, hemoglobin 8.5, platelets 251,000. INR 0.9. Sodium 143, potassium 3.2. Basic metabolic profile is otherwise unremarkable. Respiratory virus PCR is completely negative. Bl ood culture x2 and respiratory culture also unremarkable. IMAGING: Chest x-ray demonstrates a stable chest with 2 right-sided thoracostomy drains in good posi tion. Tracheostomy has been performed. The cuff is in good location. ASSESSMENT: 1. Acute hypoxic respiratory failure, improving. 2. Chronic obstructive pulmonary disease with acute exacerbation. 3. Metabolic encephalopathy, improving. 4. Hypernatremia, resolving. 5. Right upper lobectomy for removal of adenocarcinoma, stage I, postoperative day #8. PLAN: Now that the patient has a tracheostomy, we will aggressively wean sedation. When she is on n othing, if she wakes up smoothly, we will start to wean the ventilator as tolerated. I will check th e magnesium tomorrow morning. I will give 80 mEq of potassium throughout the day today. Multiple ad justments have been made with the ventilator because she has allowed us to turn over more work of memo athing to her. We will look in to LTAC options if the patient will likely have a slow taper/liberati on from mechanical ventilation. Critical Care Time: 30 minutes.
--- NOTE | 2017-10-27 15:53 | OP ---
DATE OF PROCEDURE: 10/27/2017 PREOPERATIVE DIAGNOSIS: Ventilator dependence with need for tracheostomy. POSTOPERATIVE DIAGNOSIS: Ventilator dependence with need for tracheostomy. PROCEDURE: Tracheostomy with #8 Shiley tracheostomy tube. SURGEON: Juventino Bai M.D. ANESTHESIA: General endotracheal - Scott Tian CRNA. ESTIMATED BLOOD LOSS: Minimal. PROCEDURE IN DETAIL: After consent was obtained, the patient was brought to the operating room and p laced in the supine position on the operating room table. Appropriate anesthetic monitor was placed and general endotracheal anesthesia induced. Neck was prepped and draped in usual sterile fashion. Skin incision was made two fingerbreadths above the sternal notch. Dissection to the trachea, splitt ing the strap muscles was obtained with electrocautery. Trachea was bluntly exposed. The tracheal h ook was placed. The cuff on the endotracheal tube was deflated and a horseshoe type incision was mad e on the anterior wall of the trachea. The tracheostomy tube was backed proximal to the incision and a #8 tube inserted. Ventilation was begun through the tracheostomy tube. There was good CO2 return and good oxygen saturations. The tracheostomy tube was secured with a nylon suture and trach tape. Patient was transferred back to the Intensive Care Unit in stable condition. Needle, sponge, and in strument counts were all reported as correct.
--- NOTE | 2017-10-27 18:26 | RAD ---
CHEST ONE VIEW 10/27/17 HISTORY: Dobhoff tube placement. COMPARISON: Chest one view 10/27/17. FINDINGS: Only the lower chest was evaluated on this examination. This is primarily of the abdomen. Enteric tub e tip appears to be at the gastric antrum. IMPRESSION: Dobhoff tube tip at the gastric antrum. POS: [facility]
[2017-10-27] MEDS: Labetalol HCl 100 MG/20 ML VIAL SLOW IVP PRN (21:21)
[2017-10-27] MEDS: Morphine 2 MG/ML SYRINGE SLOW IVP PRN (23:43)
[2017-10-28] MEDS: hydrALAZINE 20 MG/ML VIAL SLOW IVP PRN (03:10)
[2017-10-28] MEDS: Morphine 2 MG/ML SYRINGE SLOW IVP PRN ×8 (03:33→23:26)
[2017-10-28 05:08] LABS: #Eosinphils 0.1 thou/uL (0.0-0.7); #Lymphocytes 1.8 thou/uL (1.20-3.40); #Monocytes 1.4 thou/uL (0.11-0.59); #Neutrophils 10.5 thou/uL (1.40-6.50); %Basophils 0.1 % (0.0-1.0); %Lymphocytes 12.9 % (21.0-51.0); %Monocytes 9.8 % (0.0-10.0); %Neutrophils 76.2 % (42.0-75.0); Hemoglobin 10.3 g/dL (12.0-16.0); Mean Corpuscular HGB CONC 31.4 g/dL (32.0-36.0); Mean Corpuscular Hemoglobin 29.4 pg (27.0-31.0); Mean Corpuscular Volume 93.4 fl (81.0-99.0); Mean Platelet Volume 7.7 fL (7.4-10.4); Platelet Count 332 thou/uL (130-400); RBC Distribution Width 13.2 % (11.5-14.5); Red Blood Cell (RBC) Count 3.49 mill/uL (4.20-5.40); White Blood Cell (WBC) Count 13.8 thou/uL (4.8-10.8)
[2017-10-28 05:32] LABS: Anion Gap 12 mmol/L (10-20); BUN (Urea Nitrogen) 8 mg/dL (9.8-20.1); Calc. Creatinine Clearance 94 mL/min (70-130); Carbon Dioxide 30 mmol/L (23-31); Chloride 102 mmol/L (98-107); Estimated GFR-MDRD Greater than 90; Glucose 148 mg/dL (83-110); Magnesium 1.8 mg/dL (1.6-2.6); Potassium 3.3 mmol/L (3.5-5.1); Sodium 141 mmol/L (136-145)
[2017-10-28] MEDS: Dextrose 5 %-0.45 % NaCl 1,000 ML IV SCH ×2 (05:34→23:16)
--- NOTE | 2017-10-28 08:46 | RAD ---
SEMIUPRIGHT PORTABLE CHEST 1 VIEW: Date: 10/28/17 HISTORY: 72-year-old female status post thoracotomy. FINDINGS: Right chest tube in place with tracheostomy tube, feeding tube, and right subclavian catheters. Patch y bilateral interstitial and alveolar opacities throughout both lungs with little change from prior s tudy. IMPRESSION: Overall stable patchy bilateral alveolar and interstitial opacities throughout both lungs. Right-side d chest tubes. Continue short-term follow-up. Little change from prior study. POS: [facility]
[2017-10-28] MEDS: Famotidine 20 MG TAB PO SCH ×2 (08:47→20:40)
[2017-10-28] MEDS: Enoxaparin Sodium 40 MG/0.4 ML SYRINGE SC SCH (08:47)
[2017-10-28] MEDS: ANORO ELLIPTA INH SCH (08:48)
--- NOTE | 2017-10-28 09:32 | PRG ---
DATE OF SERVICE: 10/28/2017 This morning, intubated on the vent. Trach. PHYSICAL EXAMINATION: VITAL SIGNS: Pulse 78, blood pressure 130/84, sats 96%, respirations 21. NEURO: She opens eyes, moves all 4 extremities. I's and O's 2075 in, 3675 out. CHEST: Chest reveals bilateral rhonchi. CARDIAC: Normal S1, S2. No gallops. ABDOMEN: Abdomen is soft. LABORATORY DATA: White count 13,000, H&H 10 and 32, platelet count 632. Electrolytes are normal. C hest x-ray shows bilateral infiltrates. IMPRESSION: 1. Respiratory failure. 2. Chronic obstructive pulmonary disease. 3. Right lower lobe lobectomy. PLAN: Neb treatments q.4h. I do not see any steroids onboard. Adjust vent. Wean as tolerated. One-half hour critical care time.
[2017-10-28] MEDS ORDERED: Furosemide 40 MG/4 ML VIAL SLOW IVP SCH (11:00)
[2017-10-28] MEDS ORDERED: Activase 2 MG VIAL CATH SCH (16:49)
[2017-10-28] MEDS ORDERED: Sterile Water 10 ML VIAL IVP SCH (16:49)
[2017-10-29] MEDS: Morphine 2 MG/ML SYRINGE SLOW IVP PRN ×4 (03:10→23:26)
[2017-10-29 04:55] LABS: #Eosinphils 0.2 thou/uL (0.0-0.7); #Lymphocytes 1.4 thou/uL (1.20-3.40); #Monocytes 1.3 thou/uL (0.11-0.59); #Neutrophils 9.3 thou/uL (1.40-6.50); %Basophils 0.1 % (0.0-1.0); %Eosinophils 1.6 % (0.0-10.0); %Lymphocytes 11.5 % (21.0-51.0); %Monocytes 10.7 % (0.0-10.0); Hemoglobin 9.6 g/dL (12.0-16.0); Mean Corpuscular HGB CONC 31.9 g/dL (32.0-36.0); Mean Corpuscular Hemoglobin 29.5 pg (27.0-31.0); Mean Corpuscular Volume 92.6 fl (81.0-99.0); Mean Platelet Volume 7.5 fL (7.4-10.4); Platelet Count 321 thou/uL (130-400); RBC Distribution Width 13.1 % (11.5-14.5); Red Blood Cell (RBC) Count 3.25 mill/uL (4.20-5.40); White Blood Cell (WBC) Count 12.2 thou/uL (4.8-10.8)
[2017-10-29 05:10] LABS: Anion Gap 9 mmol/L (10-20); BUN (Urea Nitrogen) 10 mg/dL (9.8-20.1); Calc. Creatinine Clearance 92 mL/min (70-130); Calcium 8.6 mg/dL (7.8-10.44); Carbon Dioxide 35 mmol/L (23-31); Chloride 98 mmol/L (98-107); Estimated GFR-MDRD Greater than 90; Glucose 153 mg/dL (83-110); Magnesium 1.7 mg/dL (1.6-2.6); Sodium 139 mmol/L (136-145)
[2017-10-29] MEDS: Enoxaparin Sodium 40 MG/0.4 ML SYRINGE SC SCH (08:58)
[2017-10-29] MEDS: Famotidine 20 MG TAB PO SCH ×2 (08:59→23:26)
[2017-10-29] MEDS: ANORO ELLIPTA INH SCH (08:59)
--- NOTE | 2017-10-29 09:49 | RAD ---
CHEST UPRIGHT PORTABLE 1 VIEW: Date: 10/29/17 HISTORY: 72-year-old female status post thoracotomy. FINDINGS: Enteric tube, tracheostomy tube, right central line, and two right chest tubes are in place. There ar e patchy interstitial and alveolar opacity changes bilaterally. Patchy parenchymal changes appear to be somewhat improved. IMPRESSION: Somewhat improved patchy bilateral parenchymal changes. No significant new process. POS: [facility]
[2017-10-29] MEDS ORDERED: Metolazone 5 MG TAB PO SCH (10:00)
--- NOTE | 2017-10-29 11:21 | PRG ---
DATE OF SERVICE: 10/29/2017 SUBJECTIVE: Ms. Gilliland is awake, alert and responsive on the vent at the rate of 8 and down to 4 . She is doing well. She is getting p.r.n. pain medicine. No sedation. OBJECTIVE: VITAL SIGNS: Pulse 69, blood pressure 141/86, sats are 96% and respiration 14. I's and O's 2075 and 3675. CHEST: Decreased breath sounds with minimal rhonchi. CARDIAC: Normal S1 and S2. No gallops. ABDOMEN: Soft. No masses. LABORATORY DATA: White count 12,000, hemoglobin and hematocrit 9 and 30. Electrolytes are normal. IMAGING DATA: X-ray shows trach, nonspecific infiltrates. IMPRESSION: 1. Status post lobectomy. 2. Chronic obstructive pulmonary disease. 3. Severe deconditioning. PLAN: Wean vent. Continue nebulizer treatments, supportive care, nutrition and PT. We will follow. One-half hour critical care time.
[2017-10-29] MEDS ORDERED: Potassium Chloride 20 MEQ TAB PO PRN (12:03)
[2017-10-29] MEDS ORDERED: CCU ELECTROLYTE REPLACEMENT PROTOCOL FS PRN (12:03)
[2017-10-29] MEDS ORDERED: Magnesium 2 GM/NS 0.9% 100 ML 2 GM in Premix Bag 1 BAG IVPB PRN (12:03)
[2017-10-29] MEDS ORDERED: Magnesium Oxide 400 MG TAB PO PRN ×2 (12:03)
[2017-10-29] MEDS ORDERED: Potassium Phosphate 15 MMOL in Sodium Chloride 0.9% 250 ML 250 ML IV PRN (12:03)
[2017-10-29] MEDS ORDERED: Potassium Phosphate 12 MMOL in Sodium Chloride 0.9% 250 ML 250 ML IV PRN (12:03)
[2017-10-29] MEDS ORDERED: Potassium Chloride 40 MEQ in Sodium Chloride 0.9% 250 ML 250 ML IVPB PRN (12:03)
[2017-10-29] MEDS ORDERED: Potassium Phosphate 9 MMOL in Sodium Chloride 0.9% 100 ML IVPB PRN (12:03)
[2017-10-29] MEDS: Potassium Chloride 40 MEQ in Premix Bag 1 BAG IVPB PRN (13:48)
[2017-10-29] MEDS: Dextrose 5 %-0.45 % NaCl 1,000 ML IV SCH (19:50)
[2017-10-30] MEDS: Morphine 2 MG/ML SYRINGE SLOW IVP PRN ×2 (01:55→09:58)
[2017-10-30 05:51] LABS: #Eosinphils 0.2 thou/uL (0.0-0.7); #Lymphocytes 1.5 thou/uL (1.20-3.40); #Monocytes 1.3 thou/uL (0.11-0.59); #Neutrophils 9.2 thou/uL (1.40-6.50); %Basophils 0.1 % (0.0-1.0); %Lymphocytes 12.5 % (21.0-51.0); %Monocytes 10.2 % (0.0-10.0); %Neutrophils 75.2 % (42.0-75.0); Hemoglobin 9.4 g/dL (12.0-16.0); Mean Corpuscular HGB CONC 31.3 g/dL (32.0-36.0); Mean Corpuscular Volume 92.8 fl (81.0-99.0); Mean Platelet Volume 6.9 fL (7.4-10.4); Platelet Count 349 thou/uL (130-400); RBC Distribution Width 12.9 % (11.5-14.5); Red Blood Cell (RBC) Count 3.24 mill/uL (4.20-5.40); White Blood Cell (WBC) Count 12.2 thou/uL (4.8-10.8)
[2017-10-30 06:08] LABS: BUN (Urea Nitrogen) 8 mg/dL (9.8-20.1); Calc. Creatinine Clearance 86 mL/min (70-130); Calcium 8.8 mg/dL (7.8-10.44); Estimated GFR-MDRD Greater than 90; Glucose 166 mg/dL (83-110); Magnesium 1.9 mg/dL (1.6-2.6)
[2017-10-30 06:16] LABS: Anion Gap 10 mmol/L (10-20); Carbon Dioxide 37 mmol/L (23-31); Chloride 94 mmol/L (98-107); Potassium 3.1 mmol/L (3.5-5.1); Sodium 138 mmol/L (136-145)
[2017-10-30] MEDS: Potassium Chloride 40 MEQ in Premix Bag 1 BAG IVPB PRN (08:14)
--- NOTE | 2017-10-30 08:14 | RAD ---
SINGLE VIEW OF THE CHEST: COMPARISON: 10/29/17. HISTORY: Status post thoracotomy. FINDINGS: A single view of the chest shows a normal-size cardiomediastinal silhouette. Increased interstitial lung markings are present. There are right-sided chest tubes. The other lines and tubes are also un changed in position. No pneumothorax is seen. There may be small bilateral pleural effusions. An i nfiltrate may be present in the left lung base. IMPRESSION: Stable exam. POS: [facility]
[2017-10-30] MEDS: Famotidine 20 MG TAB PO SCH ×2 (08:20→21:48)
[2017-10-30] MEDS: Enoxaparin Sodium 40 MG/0.4 ML SYRINGE SC SCH (08:20)
[2017-10-30] MEDS ORDERED: Metolazone 5 MG TAB PO SCH (08:45)
[2017-10-30] MEDS: ANORO ELLIPTA INH SCH (09:00)
[2017-10-30] MEDS: Dextrose 5 %-0.45 % NaCl 1,000 ML IV SCH (11:46)
[2017-10-30] MEDS ORDERED: Magnesium Sulfate 2 GM in Sodium Chloride 0.9% 100 ML IVPB SCH (15:45)
[2017-10-30] MEDS ORDERED: Dextrose 5 %-0.45 % NaCl 1,000 ML IV SCH (15:47)
[2017-10-30] MEDS ORDERED: Magnesium 2 GM/NS 0.9% 100 ML 2 GM in Premix Bag 1 BAG IVPB SCH (16:15)
--- NOTE | 2017-10-30 16:18 | PRG ---
DATE OF SERVICE: 10/28/2017 SERVICE: Pulmonary Medicine. INTERVAL HISTORY: The patient is doing much better today from a cardiovascular and respiratory stand point. She denies any current fevers, chills, nausea or vomiting. She is breathing very comfortably today. She is on much less support on mechanical ventilation compared to Monday. Otherwise, there has been no interval change to her condition. PHYSICAL EXAMINATION: VITAL SIGNS: Afebrile, pulse 75, blood pressure 189/76, respirations 16, saturation 95% on 40% FiO2. GENERAL: Patient is awake, alert, no apparent distress. LUNGS: Much improved air entry. There are some rhonchi that clear with cough. Slightly prolonged e xpiratory phase, but no wheezing or rhonchi are appreciated. HEART: Normal rate, regular. ABDOMEN: Soft, nontender, nondistended. Bowel sounds are positive. MUSCULOSKELETAL: No cyanosis or clubbing. There is no pitting in the bilateral lower extremities. NEUROLOGIC: Grossly nonfocal. LABORATORY DATA: CBC is grossly unremarkable/stable. INR 0.9. Creatinine 0.58, BUN 8, and potassiu m 3.1. Basic metabolic profile is otherwise unremarkable. Bicarbonate is 37. Magnesium 1.9. IMAGING: Chest x-ray demonstrates stable exam. A thoracostomy tube is on the right in good position . ASSESSMENT: 1. Acute hypoxic respiratory failure, improving. 2. Chronic obstructive pulmonary disease with acute exacerbation. 3. Metabolic encephalopathy, improving. 4. Hypernatremia, resolved. 5. Hypokalemia. 6. Hypomagnesemia. 7. 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 PLAN: The patient is currently stable for transition out of the hospital to an LTAC facility. I brian l replace potassium and magnesium today. Free water will be continued for the time being, but if she continues to drop her sodium, we will scale back on it. We will put her on a spontaneous breathing trial today and if she meets criteria, we will do T-collar. Anoro Ellipta will be discontinued as th is medication cannot be successfully administered through the tracheostomy site.
[2017-10-30] MEDS: Hydrocodone-Acetamin 15 ML UDCUP PO PRN (17:12)
[2017-10-31] MEDS: Hydrocodone-Acetamin 15 ML UDCUP PO PRN ×3 (03:33→21:40)
[2017-10-31 05:50] LABS: BUN (Urea Nitrogen) 10 mg/dL (9.8-20.1); Calc. Creatinine Clearance 77 mL/min (70-130); Estimated GFR-MDRD Greater than 90; Glucose 146 mg/dL (83-110)
[2017-10-31 05:59] LABS: Anion Gap 11 mmol/L (10-20); Carbon Dioxide 40 mmol/L (23-31); Chloride 91 mmol/L (98-107); Potassium 3.6 mmol/L (3.5-5.1); Sodium 138 mmol/L (136-145)
--- NOTE | 2017-10-31 09:13 | RAD ---
CHEST ONE VIEW: History: Chest surgery. Follow up. Comparison: 10-30-17 FINDINGS: Cardiac silhouette is magnified by projection. Pulmonary vasculature remains enlarged with diffuse re ticular nodule and interstitial prominence, slightly improved compared to the prior study. Mediastinu m is midline. Right thoracostomy tubes and other lines and tubes are unchanged in appearance. popcorn candy maker leads overlie the chest. IMPRESSION: Slight interval improvement in aeration of the lungs. Otherwise stable post-operative appearance of t he chest. POS: [facility]
[2017-10-31] MEDS: Enoxaparin Sodium 40 MG/0.4 ML SYRINGE SC SCH (09:18)
[2017-10-31] MEDS: Famotidine 20 MG TAB PO SCH ×2 (09:19→20:20)
[2017-10-31] MEDS: ANORO ELLIPTA INH SCH (09:21)
--- NOTE | 2017-10-31 09:38 | PRG ---
DATE OF SERVICE: 10/31/2017 SERVICE: Pulmonary Medicine. INTERVAL HISTORY: The patient is doing really well from a breathing standpoint. She tolerated very well on trach collar trial yesterday. This morning, she is once again on pressure support ventilatio n at 5/5. She did rest a little more comfortably overnight. Her pain is under decent control. Othe rwise, there has been no interval change to her condition. She had no overnight events. PHYSICAL EXAMINATION: VITAL SIGNS: Afebrile, pulse 85, blood pressure 148/66, respirations 22, saturation 96% on 37% FiO2. GENERAL: Patient is awake, alert, no apparent distress. LUNGS: Decreased air entry. There is no prolonged expiratory phase, wheezing, rhonchi, or crackles present today. HEART: Normal rate, regular. ABDOMEN: Soft, nontender, nondistended. Bowel sounds are positive. MUSCULOSKELETAL: No cyanosis or clubbing. There is no pitting in the bilateral lower extremities. NEUROLOGIC: Grossly nonfocal. LABORATORY DATA: Bicarbonate 40. Basic metabolic profile is otherwise unremarkable. Potassium 3.6 and roughly stable. IMAGING: Chest x-ray demonstrates slight interval improvement in aeration of the bilateral lung fiel ds. Postoperative changes are stable. She has a tracheostomy in good position, right-sided central line, and 2 thoracostomy drains on the right with a side port within the chest wall. ASSESSMENT: 1. Acute hypoxic respiratory failure. 2. Chronic obstructive pulmonary disease with acute exacerbation, resolving. 3. Metabolic encephalopathy, resolved. 4. Hypernatremia, improving. 5. Hypokalemia, resolved. 6. 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 DISCUSSION AND PLAN: The patient will be able to tolerate a T-collar trial once again today. We brian l do it up to 3 times daily and increase as tolerated. We will return her to pressure support ventil ation at night, but I will reduce our pressure support to 9 cm of water. There is a very small air l eak in the chest tubes still. Hopefully, the basal tube can be removed soon. Pulmonary will continu e to follow while she remains in this location.
[2017-10-31] MEDS ORDERED: Sodium Bicarbonate Tab 325 MG TAB PER TUBE PRN (15:13)
[2017-10-31] MEDS ORDERED: Pancrelipase DR 12000 1 CAP FS PRN (15:13)
[2017-11-01 05:15] LABS: BUN (Urea Nitrogen) 19 mg/dL (9.8-20.1); Calc. Creatinine Clearance 71 mL/min (70-130); Calcium 9.4 mg/dL (7.8-10.44); Estimated GFR-MDRD 89; Glucose 123 mg/dL (83-110)
[2017-11-01 05:27] LABS: Anion Gap 14 mmol/L (10-20); Carbon Dioxide 38 mmol/L (23-31); Chloride 91 mmol/L (98-107); Potassium 3.9 mmol/L (3.5-5.1); Sodium 139 mmol/L (136-145)
[2017-11-01] MEDS ORDERED: Fluconazole In NaCl,Iso-Osm 200 MG in Premix Bag 1 BAG IVPB SCH ×2 (07:30)
[2017-11-01] MEDS: Enoxaparin Sodium 40 MG/0.4 ML SYRINGE SC SCH (09:16)
[2017-11-01] MEDS: ANORO ELLIPTA INH SCH (09:22)
--- NOTE | 2017-11-01 10:06 | RAD ---
AP VIEW CHEST: Date: 11/01/17 HISTORY: Status post thoracotomy. FINDINGS: AP view chest obtained. Comparison made to exam from 10/31/17. AP view of chest demonstrates right-sided subclavian central line in place. Two right-sided chest tub es in place. The patient has a feeding tube in place. A tracheostomy tube is in place. There is some elevation of the right hemidiaphragm. The lungs are well aerated otherwise. No acute intrathoracic ab normality is seen. IMPRESSION: Stable AP view of chest, not significantly changed since the previous day's exam. POS: [facility]
--- NOTE | 2017-11-01 10:07 | PRG ---
DATE OF SERVICE: 11/01/2017 SERVICE: Pulmonary Medicine. INTERVAL HISTORY: The patient is doing outstanding from a respiratory standpoint. She was breathing comfortably on her T-collar all day long. She got put back on the ventilator at night, but really t ruthfully never tired out. She denies any shortness of breath or chest discomfort. She indicates th at she is breathing fairly comfortably. She worked well with physical therapy yesterday. PHYSICAL EXAMINATION: VITAL SIGNS: Afebrile, pulse 65, blood pressure 162/45, respirations 22, saturation 96% on room air. GENERAL: The patient is awake, alert, in no apparent distress. LUNGS: Decent air entry. There is a prolonged expiratory phase, but less wheezing. Rhonchi are sti ll present. I do not appreciate crackles. HEART: Normal rate, regular. ABDOMEN: Soft, nontender, nondistended. Bowel sounds are positive. MUSCULOSKELETAL: No cyanosis or clubbing. No pitting in the bilateral lower extremities. NEUROLOGIC: Grossly nonfocal. LABORATORY DATA: Basic metabolic profile is returning to normal/stabilizing. Creatinine 0.65. Bica rbonate is also improving. Respiratory virus panel, blood culture x2 are unremarkable. ASSESSMENT: 1. Acute hypoxic respiratory failure. 2. Chronic obstructive pulmonary disease with acute exacerbation, resolving. 3. Metabolic encephalopathy, resolved. 4. 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 DISCUSSION AND PLAN: The patient is doing absolutely fantastic. At this point, we are going to disc ontinue her pressure support ventilation altogether. It will be available to her if she needs it, bu t we will see if we can move forward on only T-collar. If she does well with this, we can consider d ownsizing her tracheostomy if she remains in house for an additional couple of days. Pulmonary will continue to follow while she remains in this location. From my perspective, she is approaching a poi nt where she can be considered for discharge from the hospital.
[2017-11-01] MEDS: Hydrocodone-Acetamin 15 ML UDCUP PO PRN (10:45)
[2017-11-02] MEDS: Hydrocodone-Acetamin 15 ML UDCUP PO PRN ×3 (01:07→22:39)
[2017-11-02 05:47] LABS: #Eosinphils 0.6 thou/uL (0.0-0.7); #Lymphocytes 2.1 thou/uL (1.20-3.40); #Monocytes 1.1 thou/uL (0.11-0.59); #Neutrophils 6.9 thou/uL (1.40-6.50); %Basophils 0.3 % (0.0-1.0); %Eosinophils 5.2 % (0.0-10.0); %Lymphocytes 19.9 % (21.0-51.0); %Monocytes 10.4 % (0.0-10.0); %Neutrophils 64.2 % (42.0-75.0); Hemoglobin 10.8 g/dL (12.0-16.0); Mean Corpuscular HGB CONC 30.7 g/dL (32.0-36.0); Mean Corpuscular Hemoglobin 28.2 pg (27.0-31.0); Mean Corpuscular Volume 91.7 fl (81.0-99.0); Mean Platelet Volume 7.2 fL (7.4-10.4); Platelet Count 568 thou/uL (130-400); RBC Distribution Width 12.9 % (11.5-14.5); Red Blood Cell (RBC) Count 3.84 mill/uL (4.20-5.40); White Blood Cell (WBC) Count 10.7 thou/uL (4.8-10.8)
[2017-11-02 06:01] LABS: BUN (Urea Nitrogen) 23 mg/dL (9.8-20.1); Calc. Creatinine Clearance 69 mL/min (70-130); Calcium 9.5 mg/dL (7.8-10.44); Estimated GFR-MDRD 88; Glucose 139 mg/dL (83-110); Magnesium 2.3 mg/dL (1.6-2.6); Phosphorus 3.9 mg/dL (2.3-4.7)
[2017-11-02 06:10] LABS: Anion Gap 14 mmol/L (10-20); Carbon Dioxide 37 mmol/L (23-31); Chloride 92 mmol/L (98-107); Potassium 3.7 mmol/L (3.5-5.1); Sodium 139 mmol/L (136-145)
--- NOTE | 2017-11-02 08:41 | RAD ---
CHEST 1 VIEW: HISTORY: Chest surgery. Followup. COMPARISON: 11/01/17. FINDINGS: Cardiac silhouette is magnified by projection and now partially obscured by increasing widespread ret iculonodular interstitial prominence and airspace opacity throughout each lung. The patient is sligh tly rotated rightward. The lower right thoracostomy tube is no longer visible. More superior right thoracostomy tube is unchanged in position. No evidence of recurrent pneumothorax. school examiner leads overlie the chest. IMPRESSION: 1. Interval removal of the lower right thoracostomy tube. No evidence for recurrent pneumothorax. 2. Interval increase in diffuse parenchymal opacity throughout each lung, possibly related to increa sing pulmonary vascular congestion. POS: [facility]
[2017-11-02] MEDS: Enoxaparin Sodium 40 MG/0.4 ML SYRINGE SC SCH (10:18)
[2017-11-02] MEDS: Fluconazole In NaCl,Iso-Osm 100 MG in Admixture Fee 2 EACH IVPB SCH ×2 (10:18)
[2017-11-02] MEDS: ANORO ELLIPTA INH SCH (10:19)
--- NOTE | 2017-11-02 12:13 | PRG ---
DATE OF SERVICE: 11/02/2017 SERVICE: Pulmonary Medicine. INTERVAL HISTORY: The patient is doing fine from a respiratory standpoint. She is breathing comfort ably. She has no specific complaints of fevers, chills, nausea, vomiting, or diarrhea. Otherwise, t here has been no interval change to her condition. She is breathing very comfortably this morning an d was on T-collar all night last night without having to be returned to pressure support ventilation. PHYSICAL EXAMINATION: VITAL SIGNS: Afebrile, pulse 58, blood pressure 128/49, respirations 16, saturation 97% on 31% FiO2. GENERAL: The patient is awake and alert, in no apparent distress. LUNGS: Decent air entry. There is a slightly prolonged expiratory phase. The rhonchi are much impr mike. No crackles. HEART: Normal rate, regular. ABDOMEN: Soft, nontender, nondistended. Bowel sounds are positive. MUSCULOSKELETAL: No cyanosis or clubbing. No pitting in the bilateral lower extremities. NEUROLOGIC: Grossly nonfocal. LABORATORY DATA: CBC is completely unremarkable. Basic metabolic profile also appears to be improvi ng with a bicarbonate that is dropping down to 37, magnesium and phosphorus are normal. IMAGING: Chest x-ray demonstrates interval removal of one of the thoracostomy drains. No evidence o f recurrent pneumothorax. Increase in diffuse parenchymal changes throughout bilateral lung daniel. This may be related to vascular congestion, though the patient is doing fantastic. ASSESSMENT: 1. Acute hypoxic respiratory failure. 2. Chronic obstructive pulmonary disease with acute exacerbation, resolving. 3. Metabolic encephalopathy, resolved. 4. Right upper lobectomy for removal of adenocarcinoma, stage 1, postop day #14, likely curative. PLAN: The patient is doing outstanding from my perspective. As such, we can consider transitioning her out of the hospital to either a LTAC facility or a chcf facility. I would prefer the former. She will need to pursue aggressive physical therapy in that setting. In another couple of d ays, we can deescalate her tracheostomy to a fenestrated cuffless device so that we can start trach w eaning through time. In the meantime, supportive measures will be continued including our feeds and nebulized medications. I will provide the patient with a lab holiday in the morning.
[2017-11-02] MEDS: Nystatin Powder 15 GM BOT TOP SCH (21:30)
--- NOTE | 2017-11-03 08:09 | RAD ---
CHEST 1 VIEW: HISTORY: Chest surgery. Followup. COMPARISON: 11/02/17. FINDINGS: Cardiac silhouette is magnified by projection. Pulmonary vasculature remains engorged but slightly i mproved. Reticulonodular interstitial opacity has improved slightly. Mediastinum remains midline. Right subclavian central venous catheter is no longer visible. Other lines and tubes appear unchange d in position. gaming floor supervisor leads overlie the chest. IMPRESSION: 1. Interval removal of the right subclavian central venous catheter. 2. Interval improved aeration of the lungs. 3. Otherwise stable postoperative appearance of the chest. POS: [facility]
[2017-11-03] MEDS: Enoxaparin Sodium 40 MG/0.4 ML SYRINGE SC SCH (09:56)
[2017-11-03] MEDS: Nystatin Powder 15 GM BOT TOP SCH ×2 (09:56→20:57)
[2017-11-03] MEDS: ANORO ELLIPTA INH SCH (09:56)
[2017-11-03] MEDS: Fluconazole In NaCl,Iso-Osm 100 MG in Admixture Fee 2 EACH IVPB SCH ×2 (09:56)
[2017-11-03] MEDS: Hydrocodone-Acetamin 15 ML UDCUP PO PRN ×2 (10:05→20:16)
--- NOTE | 2017-11-03 12:13 | PRG ---
DATE OF SERVICE: 11/03/2017 SERVICE: Pulmonary Medicine. INTERVAL HISTORY: The patient is doing really well from a cardiovascular and respiratory standpoint. She is breathing fairly comfortably. I saw her walking with physical therapy today. She is weak, still, but is moving around much better. Otherwise, there has been no interval change to her conditi on. PHYSICAL EXAMINATION: VITAL SIGNS: Afebrile, pulse 71, blood pressure 110/72, respirations 14 and saturation 98% on 28% Fi O2 via T-collar. HEENT: Normocephalic, atraumatic. Sclerae are white, conjunctivae pink. Oral mucosa is moist witho ut lesions. LUNGS: Decent air entry. There is slightly prolonged expiratory phase. I do not appreciate wheezin g. Rhonchi are present. No crackles. HEART: Normal rate and regular. ABDOMEN: Soft, nontender and nondistended. Bowel sounds are positive. MUSCULOSKELETAL: No cyanosis or clubbing. There is no pitting in the bilateral lower extremities. NEUROLOGIC: Grossly nonfocal. IMAGING DATA: Chest x-ray demonstrates interval removal of the right subclavian central venous selma ter. She has improved aeration of the bilateral lungs. Stable postoperative changes of the chest is identified. ASSESSMENT: 1. Acute hypoxic respiratory failure, improving. 2. Chronic obstructive pulmonary disease with acute exacerbation, resolving. 3. Right upper lobectomy for removal of the adenocarcinoma, stage I, postoperative day #15, likely c urative. 4. Tracheostomy, postoperative day #7. DISCUSSION AND PLAN: The patient is doing fantastic from a respiratory perspective. We will continu e to work on aggressive mobilization efforts, and wean oxygen as tolerated. From my perspective, she is stable for transition out of the hospital to an LTAC facility. That being said, she is requestin g not to make that transition on a Monday. As such, I think we can make it happen on Monday. She is ready for her tracheostomy to be downsized. We can go to a 6.0 fenestrated cuffless trach. If she tolerates this well, Speech Pathology will be invited to work with the patient and possibly give her Passy-Marcus valve, so that she can once again phonate. Since there are no trach sutures, I preferred to wait a full 10 days before downsizing her tracheostomy if possible.
--- NOTE | 2017-11-03 14:35 | RAD ---
KUB: COMPARISON: 10/24/17. HISTORY: Dobbhoff tube placement. FINDINGS: A single view of the abdomen shows a nonspecific, nonobstructed bowel gas pattern. A Dobbhoff tube i s seen overlying the stomach. IMPRESSION: Dobbhoff tube located in the stomach. POS: [facility]
--- NOTE | 2017-11-04 09:09 | RAD ---
KUB: COMPARISON: 11/03/17. HISTORY: Dobbhoff placement. FINDINGS: A single view of the ad shows a Dobbhoff tube located in the left upper quadrant of the abdomen, with in the stomach. There is a nonobstructed bowel gas pattern. IMPRESSION: Dobbhoff tube located in the stomach. POS: [facility]
[2017-11-04] MEDS: Fluconazole In NaCl,Iso-Osm 100 MG in Admixture Fee 2 EACH IVPB SCH ×2 (10:25)
[2017-11-04] MEDS: Enoxaparin Sodium 40 MG/0.4 ML SYRINGE SC SCH (10:25)
[2017-11-04] MEDS: ANORO ELLIPTA INH SCH (10:26)
[2017-11-04] MEDS: Hydrocodone-Acetamin 15 ML UDCUP PO PRN ×2 (13:41→22:54)
[2017-11-04] MEDS: Nystatin Powder 15 GM BOT TOP SCH ×2 (13:51→21:10)
--- NOTE | 2017-11-04 21:15 | PRG ---
DATE OF SERVICE: 11/04/2017 Ms. Gilliland is doing well. She had no complaints. She communicates well with writing board. OBJECTIVE: VITAL SIGNS: She is afebrile, heart rate 65, respiratory rate is 20, oximetry is 98, blood pressure has been in the 140s, one blood pressure this afternoon was 95/43. CHEST: Bilateral equal breath sounds. HEART: Regular rhythm. ABDOMEN: Soft. LABORATORY DATA: There is no new lab. Abdominal film was reviewed showing proper placement of the Dobbhoff tube today. IMPRESSION: 1. Acute hypoxic respiratory failure, status post tracheostomy. 2. Chronic obstructive pulmonary disease exacerbation. 3. Encephalopathy, resolved. 4. Status post right upper lobectomy for adenocarcinoma, stage I. We will continue with p.r.n. ventilator use. She says she is doing well and denies any shortness of breath. I will consider placing a fenestrated tracheostomy either tomorrow or Monday so she can talk if she does not require ventilation over the next 24-48 hours.
[2017-11-05] MEDS: Nystatin Powder 15 GM BOT TOP SCH ×2 (09:41→21:31)
[2017-11-05] MEDS: Enoxaparin Sodium 40 MG/0.4 ML SYRINGE SC SCH (09:42)
[2017-11-05] MEDS: Fluconazole In NaCl,Iso-Osm 100 MG in Admixture Fee 2 EACH IVPB SCH ×2 (09:42)
[2017-11-05] MEDS: ANORO ELLIPTA INH SCH (09:43)
[2017-11-05] MEDS ORDERED: Lorazepam 2 MG/ML VIAL SLOW IVP PRN ×2 (12:20)
[2017-11-05] MEDS ORDERED: Magnesium 2 GM/NS 0.9% 100 ML 2 GM in Premix Bag 1 BAG IVPB SCH (13:00)
[2017-11-05] MEDS ORDERED: Magnesium 2 GM/NS 0.9% 50 ML 2 GM in Premix Bag 1 BAG IVPB SCH (13:00)
--- NOTE | 2017-11-05 13:19 | RAD ---
SINGLE VIEW OF THE CHEST: COMPARISON: 11/03/17. HISTORY: Ventilated patient with respiratory failure. FINDINGS: A single view of the chest shows a normal-size cardiomediastinal silhouette. The patient appears to have a small right pleural effusion. Increased interstitial lung markings are present. There is a t racheostomy in good position overlying the trachea. The right-sided chest tube has been removed. Th ere is a Dobbhoff tube with its tip in the proximal to mid esophagus. IMPRESSION: 1. Malpositioned Dobbhoff tube. 2. Small right pleural effusion. POS: [facility]
[2017-11-05 13:29] LABS: pH, Arterial 7.27 (7.35-7.45)
[2017-11-05 13:30] LABS: Actual Bicarbonate (HCO3a) 37.2 mEq/L (22-26); Base Excess (BEa) 7.7 mEq/L (0 (+/-) 2.5); CO2 Tension 82.4 mmHg (35.0-45.0); O2 Tension (PaO2) 49.4 mmHg (80.0-100.0)
[2017-11-05 13:31] LABS: Calcium, Ionized 1.2 mmol/L (1.12-1.30); Hemoglobin (Hb) 11.9 g/dL (12.0-16.0); Puncture Site L.R.
--- NOTE | 2017-11-05 15:35 | PRG ---
DATE OF SERVICE: 11/05/2017 SUBJECTIVE: Jahaira Gilliland had rough night. OBJECTIVE: VITAL SIGNS: She is afebrile, heart rate 76, respiratory rate in the high 20s, oximetry 93, blood pr essure 143/80. She has a very long expiratory phase, diffuse wheezes. HEART: Regular rhythm. S1 and S2 are normal. ABDOMEN: Soft. EXTREMITIES: Without asymmetry. LABORATORY DATA: There is no new lab. IMPRESSION: 1. Chronic obstructive pulmonary disease with increasing bronchospasm. 2. Recent respiratory failure with a tracheostomy. 3. Status post lobectomy. PLAN: Chest radiograph, mechanical ventilation, transferred to the ICU, nebulizer treatments, steroi ds, and low dose sedation as needed. I doubt she has pneumothorax. We will check radiograph. Critical care time 30 minutes.
[2017-11-06 06:47] LABS: Hemoglobin 10.1 g/dL (12.0-16.0); Mean Corpuscular HGB CONC 31.8 g/dL (32.0-36.0); Mean Corpuscular Hemoglobin 28.6 pg (27.0-31.0); Mean Platelet Volume 7.2 fL (7.4-10.4); Platelet Count 582 thou/uL (130-400); RBC Distribution Width 13.3 % (11.5-14.5); Red Blood Cell (RBC) Count 3.53 mill/uL (4.20-5.40); White Blood Cell (WBC) Count 10.7 thou/uL (4.8-10.8)
[2017-11-06 06:59] LABS: Anion Gap 16 mmol/L (10-20); BUN (Urea Nitrogen) 28 mg/dL (9.8-20.1); Calc. Creatinine Clearance 0 mL/min (70-130); Carbon Dioxide 29 mmol/L (23-31); Chloride 97 mmol/L (98-107); Estimated GFR-MDRD 85; Glucose 162 mg/dL (83-110); Sodium 138 mmol/L (136-145)
[2017-11-06 07:10] LABS: Actual Bicarbonate (HCO3a) 33.6 mEq/L (22-26); Base Excess (BEa) 8.8 mEq/L (0 (+/-) 2.5); CO2 Tension 47.9 mmHg (35.0-45.0); Hematocrit-ABG 32.5 % (36.0-47.0); Hemoglobin (Hb) 9.7 g/dL (12.0-16.0); O2 Tension (PaO2) 73.5 mmHg (80.0-100.0); pH, Arterial 7.47 (7.35-7.45)
[2017-11-06 07:11] LABS: ALV-art Gradient 79.025 (0-20); Analyzer IN Cardio ER; Calcium, Ionized 1.2 mmol/L (1.12-1.30); Puncture Site RB
[2017-11-06 07:40] LABS: Band 1 % (5-11); Lymphocytes 3 % (21-51); MDiff Complete? YES; Monocytes 1 % (0-10); Neutrophil 95 % (42-75); RBC Morphology Normal
[2017-11-06] MEDS: Nystatin Powder 15 GM BOT TOP SCH ×2 (08:59→21:10)
[2017-11-06] MEDS: Enoxaparin Sodium 40 MG/0.4 ML SYRINGE SC SCH (08:59)
[2017-11-06] MEDS: ANORO ELLIPTA INH SCH (09:00)
[2017-11-06] MEDS: Fluconazole In NaCl,Iso-Osm 100 MG in Admixture Fee 2 EACH IVPB SCH ×2 (09:20)
--- NOTE | 2017-11-06 10:05 | RAD ---
SINGLE VIEW OF THE CHEST: COMPARISON: 11/05/17. HISTORY: Ventilated patient with respiratory failure. FINDINGS: A single view of the chest shows an enlarged but stable cardiomediastinal silhouette. The tracheosto my is unchanged in position. The Dobbhoff tube has been removed. Increased interstitial lung markin gs are present. There is are improving opacities in the bilateral lung bases. IMPRESSION: Improving multifocal pneumonia. POS: [facility]
--- NOTE | 2017-11-06 10:26 | PRG ---
DATE OF SERVICE: 11/06/2017 SERVICE: Pulmonary Medicine. INTERVAL HISTORY: The patient is doing fine from a respiratory standpoint. She is breathing comfort ably. She got placed back on mechanical ventilation over the weekend because she had a respiratory e vent, possibly associated with malposition of her feeding tube. She denies any current fevers or chi lls. She is breathing comfortably, has no specific complaints. PHYSICAL EXAMINATION: VITAL SIGNS: Afebrile, pulse 97, blood pressure 110/76, respirations 23, saturation 95% on 27% FIO2 and PEEP of 5. GENERAL: The patient is awake, alert, no apparent distress. LUNGS: Decent air entry. There is a slightly prolonged expiratory phase, but I do not appreciate wh eezing. Rhonchi are present but clear with cough. No crackles. HEART: Normal rate, regular. ABDOMEN: Soft, nontender, nondistended. Bowel sounds are positive. MUSCULOSKELETAL: No cyanosis or clubbing. No pitting in the bilateral lower extremities. NEUROLOGIC: Grossly nonfocal. LABORATORY DATA: WBC 10.7, hemoglobin 10.1, platelets 582,000. INR is 0.9. PH 7.47, pCO2 of 48, pO 2 of 73. Basic metabolic profile is otherwise unremarkable. Respiratory virus panel is negative. B lood cultures x2 and respiratory culture is also unremarkable. IMAGING: Chest x-ray demonstrates interstitial infiltrate in the bibasilar region. Tracheostomy tub e remains in good position. There is volume loss on the right side. No evidence of an obvious pneum othorax is present. ASSESSMENT: 1. Acute hypoxic and hypercapnic respiratory failure. 2. Chronic obstructive pulmonary disease with recent exacerbation, resolved. 3. Right upper lobectomy for excision of adenocarcinoma, stage I, likely curative, postoperative day #18. 4. Tracheostomy, postoperative day #10, DISCUSSION AND PLAN: The patient had malposition of that feeding tube. She also had a setback from a respiratory standpoint and is requiring positive pressure once again. As such, I am not going to d ownsize her tracheostomy presently. I gave her the option of putting in NG tube back down or PEG tub e. She is currently opting for PEG tube. Once this is in place, she will be stable for transition t o an LTAC facility where they can continue weaning tracheostomy and provide her with routine care. [facility] pool will continue to follow while she remains in this location.
--- NOTE | 2017-11-06 13:52 | CON ---
DATE OF CONSULTATION: 11/06/2017 GASTROINTESTINAL INPATIENT CONSULTATION NOTE REQUESTING PHYSICIAN: Allan Justin M.D. REASON FOR CONSULTATION: PEG tube placement. HISTORY OF PRESENT ILLNESS: Jahaira Gilliland is a very pleasant 72-year-old woman hospitalized here for most of this month following a right upper lobectomy for excision of an adenocarcinoma stage 1. Postoperatively, she has not done very well. From a respiratory standpoint, she remains ventilator d ependent and underwent a tracheostomy 10 days ago. This is on a background of COPD. During this santy e, she has not had any oral intake with oropharyngeal dysphagia due to the tracheostomy and has been getting nasogastric tube feedings; however, her Dobbhoff tube was malpositioned and removed the other day. We are consulted for consideration of PEG tube placement for long-term enteric feeding. The p atient desires to proceed with this. She denies any prior history of abdominal surgeries. She does not have any history of peptic ulcer disease and has not undergone EGD that she can recall. She ranjit es any abdominal pain at this time. REVIEW OF SYSTEMS: Full review of systems including constitutional, head, eyes, ears, nose, throat, GI, , cardiovascular, respiratory, musculoskeletal, and neurologic systems is negative except as no roman in the HPI. PAST MEDICAL HISTORY: Chronic obstructive pulmonary disease, anxiety, hypertension, nephrolithiasis, parathyroid disease, adenocarcinoma of the right upper lobe, status post right upper lobectomy, post operative day #18, and tracheostomy postoperative day #10. ALLERGIES: CIPRO, ASPIRIN, DIAZEPAM, IBUPROFEN. MEDICATIONS: Tylenol p.r.n., DuoNebs, Lovenox 40 mg subcu daily, fluconazole IV, Mycostatin powder, and Zoloft. SOCIAL HISTORY: She has an [id number] history of smoking. No alcohol or drug abuse. FAMILY HISTORY: Noncontributory. PHYSICAL EXAMINATION: VITAL SIGNS: Temperature 98.3, pulse 86, blood pressure 158/82, 95% oxygen saturation on ventilator. GENERAL: Chronically ill 72-year-old woman, alert and in no acute distress. SKIN: No jaundice, no rash visible or palpable. No surgical scars in the anterior abdomen. EYES: No scleral icterus. She has scleral injection of the right eye. ENT: Mucous membranes moist, no oral lesions. NECK: She has a tracheostomy in place. She is on the ventilator. HEART: Regular rate and rhythm. LUNGS: Clear to auscultation bilaterally, bilateral vent sounds. ABDOMEN: Flat, bowel sounds present, soft and nontender to palpation throughout. No masses or organ omegaly appreciated. No surgical scars to the left upper quadrant. EXTREMITIES: No peripheral edema. VESSELS: Radial pulses 2+ bilaterally. NEUROLOGICAL: Cranial nerves II-XII intact bilaterally. No focal deficits. LABORATORY STUDIES: WBC 10.7, hemoglobin 10.1, platelets 582, sodium 138, potassium 4.0, BUN 28, cre atinine 0.68. ASSESSMENT AND PLAN: 1. Oropharyngeal dysphagia. 2. Respiratory failure, now status post tracheostomy, ventilator dependent. I agree that PEG tube i s indicated for longer term enteral feeding in this context. The patient desires to proceed. We dis cussed the procedure in detail including the potential risks of the procedure. We will plan for PEG tube placement tomorrow. This can be performed either down in the endoscopy unit, or at bedside in t ICU if desired by the Anesthesiology and Pulmonary teams. Thank you for the consultation. Please call at any time with questions or concerns.
[2017-11-06] MEDS: Sodium Chloride 0.45% 1,000 ML IV SCH (17:01)
[2017-11-06] MEDS: hydrALAZINE 20 MG/ML VIAL SLOW IVP PRN (22:42)
[2017-11-07] MEDS ORDERED: Sodium Chloride 0.9% 500 ML IV SCH (01:45)
[2017-11-07] MEDS: Sodium Chloride 0.45% 1,000 ML IV SCH ×2 (05:06→21:34)
[2017-11-07] MEDS: Fluconazole In NaCl,Iso-Osm 100 MG in Admixture Fee 2 EACH IVPB SCH ×2 (10:07)
[2017-11-07] MEDS: Nystatin Powder 15 GM BOT TOP SCH ×2 (10:07→21:11)
[2017-11-07] MEDS: Enoxaparin Sodium 40 MG/0.4 ML SYRINGE SC SCH (10:07)
--- NOTE | 2017-11-07 10:51 | PRG ---
DATE OF SERVICE: 11/07/2017 SERVICE: Pulmonary Medicine. INTERVAL HISTORY: The patient is doing fantastic from a respiratory standpoint. Late yesterday even ing, she got a little tired and required noninvasive ventilation once again. She is once again recov ered and is breathing comfortably. She denies any current fevers, chills, nausea, vomiting, or chest discomfort. We initiated some half normal saline yesterday just to keep her hydrated, but she is go ing down for PEG tube today. Once this is done, we will resume our tube feeds. OBJECTIVE: VITAL SIGNS: Afebrile, pulse 69, blood pressure 102/54, respirations 22, saturation 98% on 30% FiO2 and PEEP of 5. GENERAL: The patient is awake, alert, in no apparent distress. LUNGS: Decent air entry. There is no prolonged expiratory phase, wheezing, or rhonchi. Dependent c rackles are minimal. HEART: Normal rate, regular. ABDOMEN: Soft, nontender, nondistended. Bowel sounds are positive. MUSCULOSKELETAL: No cyanosis or clubbing. There is no pitting in the bilateral lower extremities. NEUROLOGIC: Grossly nonfocal. ASSESSMENT: 1. Acute hypoxic and hypercapnic respiratory failure. 2. Chronic obstructive pulmonary disease with acute exacerbation, resolved. 3. Right upper lobectomy for excision of adenocarcinoma, stage 1, likely curative, postoperative day #19. 4. Tracheostomy, postoperative day #11. DISCUSSION AND PLAN: The patient is doing fantastic from a respiratory standpoint. She is going to need to be slowly weaned from the ventilator over the next couple of days, if not weeks. Once she to lerates a protracted course of 2-3 days without mechanical ventilation, she can be considered for heide nsizing the tracheostomy. She is stable for transition out of the hospital to an LTAC Center.
[2017-11-07] MEDS: ANORO ELLIPTA INH SCH (16:32)
[2017-11-08] MEDS: Nystatin Powder 15 GM BOT TOP SCH ×2 (10:00→21:06)
--- NOTE | 2017-11-08 10:21 | PRG ---
DATE OF SERVICE: 11/08/2017 SERVICE: Pulmonary Medicine INTERVAL HISTORY: The patient is doing fine from a respiratory standpoint. She did not get her PEG tube yesterday because a dose Lovenox was provided. Otherwise, there has been no interval change to her condition. She was breathing comfortably on T-collar trial yesterday for over 6 hours. She got placed back on in the evening time. She is currently back on pressure support ventilation, doing wel l. She is awaiting her PEG tube once again. PHYSICAL EXAMINATION: VITAL SIGNS: Afebrile, pulse 84, blood pressure 152/66, respirations 19, saturation 100% on 31% FiO2 . GENERAL: The patient is awake, alert, in no apparent distress. LUNGS: Decent air entry. There is a prolonged expiratory phase. No crackles or rhonchi are appreci ated. HEART: Normal rate, regular. ABDOMEN: Soft, nontender, nondistended. Bowel sounds are positive premises. EXTREMITIES: No cyanosis or clubbing. There is no pitting in the bilateral lower extremities. NEUROLOGIC: Grossly nonfocal. ASSESSMENT: 1. Acute hypoxic and hypercapnic respiratory failure. 2. Chronic obstructive pulmonary disease with acute exacerbation, resolved. 3. Right upper lobectomy for excision of adenocarcinoma, stage I, likely curative postop day #20. 4. Tracheostomy, postop day #12. 5. Severe protein calorie malnutrition. DISCUSSION AND PLAN: Once the patient gets her PEG tube, she will be stable for transition out of e ICU to an LTAC center. Pulmonary Critical Care will continue to follow while she remains in this ocation. We will continue our T-collar trials during the daytime and increase as tolerated.
[2017-11-08] MEDS ORDERED: CEFAZOLIN 1 GM, Syringe 2.5 ML in Sterile Water 7.5 ML SLOW IVP SCH (10:30)
[2017-11-08 12:51] VITALS: BMI 26.8
[2017-11-08] MEDS: Sodium Chloride 0.45% 1,000 ML IV SCH (14:40)
[2017-11-08] MEDS: ANORO ELLIPTA INH SCH (14:41)
[2017-11-08] MEDS ORDERED: Morphine 4 MG/ML Carpuject SLOW IVP SCH (17:15)
--- NOTE | 2017-11-08 18:58 | OP ---
DATE OF PROCEDURE: 11/08/2017 PROCEDURE: Esophagogastroduodenoscopy with PEG placement. INDICATION FOR PROCEDURE: Malnutrition, dysphagia. DESCRIPTION OF PROCEDURE: After the risks, and benefits were explained to the patient and her daughter including risks of bleeding, infection, perforation, reactions to anesthesia and/or pain. Informed consent was obtained. The patient was already in the ICU with deep sedation administered via propofol and anesthesia support. Approximately 30 minutes prior to the procedure, she did receive 1 gram of Ancef for perioperative prophylaxis for bacterial infection. The standard gastroscope was then advanced into the stomach, advanced into the mouth with intubation of the esophagus, stomach, and proximal small intestine with the findings listed below. The patient tolerated the procedure well with no immediate perioperative complications. FINDINGS: Duodenum: Mild mucosal erythema was seen in the duodenal bulb without associated erosions, ulcerations, or mass lesions. Normal appearing mucosa was seen in the second portion of the small intestine. No intervention taken at this time. Stomach: Normal appearing mucosa was seen in the cardia, fundus, body, antrum, and incisura. There was no evidence of ulcerations, erosions, or mass lesions. No hiatal hernia was seen on retroflexion. Esophagus: Normal appearing mucosa was seen in the proximal mid and distal esophagus. There was no evidence of erosions, ulcerations, or mass lesions. PEG tube placement: After confirming location of placement of the PEG tube with transillumination and 1:1 compression, the [employer] PEG tube kit was opened. Using a small gauge needle, 2% lidocaine was then instilled into the skin overlying the site of PEG tube placement in a wheal formation. The needle was then placed perpendicular to the skin and advanced into the stomach with back pressure as the needle was advanced. The lidocaine was then instilled along this tract to achieve local anesthesia at which point, a surgical scalpel was used to cut an approximate 1 cm incision into the skin. An aspiration needle was then advanced through the incision site and into the stomach with the needle removed and the catheter remaining. A guidewire was then placed through the catheter and retrieved by the gastroscope using a standard snare. The guidewire was then withdrawn back through the mouth, with the 20-[place] [employer] PEG tube attached to the guidewire. Then, using a push method, the PEG tube was then advanced into the mouth and pulled out through the anterior portion of the stomach and skin. The PEG tube was noted to have the 3 cm marking present at the skin. The PEG tube was then cut to length with the external bumper placed and the feeding adapter placed as well. The gastroscope was then advanced into the mouth again and confirmed visualization of the PEG tube within the anterior portion of the stomach and was able to be moved freely with 720 degrees rotation. All equipment was then removed from the patient and the procedure was terminated. IMPRESSION: 1. Successful placement of a 20-[place] [employer] PEG tube. 2. Mild mucosal erythema seen in the duodenal bulb of uncertain significance. RECOMMENDATIONS: 1. Follow up with primary inpatient team. 2. We would consult dietitian services for placement of patient on tube feeds. Can start tube feeds at 4 hours after placement of the PEG tube. Would monitor for signs of infection or perioperative complication during this time. 3. Would conform to standard PEG tube precautions including no bathing or swimming for the next 6 to 8 weeks, rotate the tube approximately 720 degrees every day, clean the wound site with running soap and water, would instill 60 mL of water both before and after tube feeds to prevent clogging of the tube itself. 4. If the PEG tube is removed prematurely (prior to 6 to 8 weeks from now) this is considered a surgical emergency and would require an emergent CT scan and/or General Surgery consultation. [facility]
[2017-11-08] MEDS: Acetaminophen 650 MG/20.3 ML UDCUP PO PRN (22:10)
[2017-11-09] MEDS: Morphine 4 MG/ML Carpuject SLOW IVP PRN ×2 (00:51→04:12)
[2017-11-09] MEDS: Acetaminophen 650 MG/20.3 ML UDCUP PO PRN (04:05)
[2017-11-09] MEDS: Sodium Chloride 0.45% 1,000 ML IV SCH (04:11)
[2017-11-09] MEDS ORDERED: CEFAZOLIN 1 GM, Syringe 2.5 ML in Sterile Water 7.5 ML SLOW IVP SCH (04:30)
[2017-11-09] MEDS ORDERED: cefTRIAXone\\ROCEPHIN 1 GM, Syringe 0.4 ML in Sterile Water 9.6 ML SLOW IVP SCH (04:45)
[2017-11-09 05:46] LABS: Calcium 8.8 mg/dL (7.8-10.44); Chloride 100 mmol/L (98-107); Magnesium 2.1 mg/dL (1.6-2.6); Potassium 3.7 mmol/L (3.5-5.1); Sodium 137 mmol/L (136-145)
[2017-11-09 05:47] LABS: Glucose 163 mg/dL (83-110)
[2017-11-09 05:49] LABS: Anion Gap 14 mmol/L (10-20); Carbon Dioxide 27 mmol/L (23-31)
[2017-11-09 05:51] LABS: Calc. Creatinine Clearance 71 mL/min (70-130); Estimated GFR-MDRD Greater than 90; Phosphorus 3.2 mg/dL (2.3-4.7)
[2017-11-09 05:52] LABS: BUN (Urea Nitrogen) 18 mg/dL (9.8-20.1)
[2017-11-09 05:58] LABS: Band 6 % (5-11); Eosinophils 1 % (0-10); Hemoglobin 9.9 g/dL (12.0-16.0); Lymphocytes 2 % (21-51); MDiff Complete? YES; Mean Corpuscular HGB CONC 32.5 g/dL (32.0-36.0); Mean Corpuscular Hemoglobin 29.4 pg (27.0-31.0); Mean Corpuscular Volume 90.6 fl (81.0-99.0); Mean Platelet Volume 7.6 fL (7.4-10.4); Monocytes 7 % (0-10); Neutrophil 84 % (42-75); PLT Morphology Comment Appears Increased; Platelet Count 471 thou/uL (130-400); RBC Distribution Width 13.5 % (11.5-14.5); RBC Morphology Normal; Red Blood Cell (RBC) Count 3.37 mill/uL (4.20-5.40); White Blood Cell (WBC) Count 18.8 thou/uL (4.8-10.8)
[2017-11-09 06:49] VITALS: BP 91/49
[2017-11-09 07:56] VITALS: TEMP 98.2
[2017-11-09] MEDS: Enoxaparin Sodium 40 MG/0.4 ML SYRINGE SC SCH (09:07)
--- NOTE | 2017-11-09 11:21 | RAD ---
AP CHEST: Indication: Fever. FINDINGS: There is worsening parenchymal opacities involving the area of midlung to lower lobes bilaterally, wright spicious for worsening pneumonia. A component of volume overload or CHF cannot be entirely excluded. No pleural effusion or pneumothorax is evident. Heart size is prominent. Pulmonary vasculature is mil dly prominent. Tracheostomy tube is unchanged. Suprapubic catheter within the left lower quadrant of the abdomen. IMPRESSION: Worsening parenchymal opacity may be related to worsening pneumonia or worsening CHF with volume over load. Continued followup is recommended. POS: [facility]
--- NOTE | 2017-11-09 11:32 | PRG ---
DATE OF SERVICE: 11/09/2017 SERVICE: Pulmonary Medicine. INTERVAL HISTORY: The patient was doing well from cardiovascular and respiratory standpoint. She cooper d a PEG tube yesterday. Otherwise, there has been no interval change to her condition. She did have a fever last night. She got some Tylenol, blood cultures, urinalysis and urine culture were perform ed. Chest x-ray was also performed this morning. PHYSICAL EXAMINATION: VITAL SIGNS: Currently afebrile with a T-max overnight of 102.7, pulse 80, blood pressure 109/53, re spirations 18, saturation 95% on 31% FIO2 and PEEP of 5. GENERAL: Patient is awake, alert, no apparent distress. LUNGS: Decent air entry. There is a prolonged expiratory phase and a little bit of wheezing. I do not appreciate any crackles or rhonchi. HEART: Normal rate, regular. ABDOMEN: Soft. Little tender to palpation throughout. There is no overt rebound or guarding presen t. Bowel sounds are hypoactive. GENITOURINARY: No Cesar catheter in place. NEUROLOGIC: Grossly nonfocal. LABORATORY DATA: WBC 18.8, hemoglobin 9.9, platelets 471,000. Basic metabolic profile, magnesium an d phosphorus are all completely unremarkable. Respiratory virus panel was previously unremarkable. Blood cultures x2 were negative from the 6th of this month. ASSESSMENT: 1. Acute hypoxic and hypercapnic respiratory failure, improving. 2. Chronic obstructive pulmonary disease with acute exacerbation, resolved. 3. Right upper lobectomy for excision of adenocarcinoma, stage I, likely curative, postop day #21. 4. Tracheostomy, postop day #13. 5. PEG tube placement, postop day #1. 6. Sepsis. 7. Severe protein calorie malnutrition. DISCUSSION AND PLAN: We will monitor for increasing signs of sepsis. There is a possibility that th e fever was just associated with the PEG tube placement. That being said, if she has increasing feve r profile, or increasing abdominal discomfort, empiric antibiotics to cover GI balwinder, and imaging brian l be considered. We will continue weaning the ventilator as tolerated. She is tolerating T-collar t rials at an increasing rate. Pulmonary and Critical Care will continue to follow while she remains i n this location.
== END 2017-11-09 14:22 | DRG 3 ==
LOC: SURG A 06:03 → EEVIPCON 06:03 → IMCU/EMU 20:33 → CCU 10-20 17:44 → IMCU/EMU 11-03 21:41 → CCU 11-05 14:00
PROVIDERS: ADMIT Thoracic Surgery (Cardiothoracic Vascular Surgery); ATTEND Thoracic Surgery (Cardiothoracic Vascular Surgery)
PROC: 0BBC0ZX Excision of Right Upper Lung Lobe, Open Approach, Diagnostic (ICD-10-PCS; 2017-10-18)
PROC: 07B70ZX Excision of Thorax Lymphatic, Open Approach, Diagnostic (ICD-10-PCS; 2017-10-18)
PROC: 5A1955Z Respiratory Ventilation, Greater than 96 Consecutive Hours (ICD-10-PCS; 2017-10-20)
PROC: 0BH17EZ Insertion of Endotracheal Airway into Trachea, Via Natural or Artificial Opening (ICD-10-PCS; 2017-10-20)
PROC: 0B110F4 Bypass Trachea to Cutaneous with Tracheostomy Device, Open Approach (ICD-10-PCS; principal; 2017-10-27)
PROC: 0BC68ZZ Extirpation of Matter from Right Lower Lobe Bronchus, Via Natural or Artificial Opening Endoscopic (ICD-10-PCS; 2017-11-07)
PROC: 0DH63UZ Insertion of Feeding Device into Stomach, Percutaneous Approach (ICD-10-PCS; 2017-11-08)
PROC: 0DJ08ZZ Inspection of Upper Intestinal Tract, Via Natural or Artificial Opening Endoscopic (ICD-10-PCS; 2017-11-08)
DX: C34.11 Malignant neoplasm of upper lobe, right bronchus or lung (principal); E43 Unspecified severe protein-calorie malnutrition; G93.41 Metabolic encephalopathy; T17.590A Other foreign object in bronchus causing asphyxiation, initial encounter; R13.11 Dysphagia, oral phase; J96.02 Acute respiratory failure with hypercapnia; J96.01 Acute respiratory failure with hypoxia; E87.0 Hyperosmolality and hypernatremia; J44.1 Chronic obstructive pulmonary disease with (acute) exacerbation; J98.11 Atelectasis; E83.42 Hypomagnesemia; I10 Essential (primary) hypertension; E87.6 Hypokalemia; Z68.27 Body mass index [BMI] 27.0-27.9, adult; Z88.1 Allergy status to other antibiotic agents; Z88.8 Allergy status to other drugs, medicaments and biological substances; Z85.3 Personal history of malignant neoplasm of breast; Z82.49 Family history of ischemic heart disease and other diseases of the circulatory system; Z82.3 Family history of stroke; Z80.8 Family history of malignant neoplasm of other organs or systems; X58.XXXA Exposure to other specified factors, initial encounter
CPT/HCPCS: 36415; 36416; 71045; 74018; 80048; 82805; 83735; 84100; 85007; 85014; 85018; 85025; 85027; 85610; 85730; 86850; 86900; 86901; 87040; 87070; 87077; 87086; 87186; 87205; 87633; 87798; 88305; 88309; 88331; 88332; 88341; 88342; 93005; 93010; 93306; 94002; 94003; 94640; 94660; 94667; 94668; A4216; C1751; G8978-GP-CK; G8979-GP-CI; G8987-GO-CL; G8988-GO-CJ; G8996-GN-CN; G8997-GN-CL; J0360; J0690; J0696; J1100; J1200; J1450; J1630; J1642; J1650; J1720; J1815; J1940; J2001; J2060; J2250; J2270; J2405; J2543; J2704; J2795; J2920; J2997; J3010; J3475; J3480; J7042; J7050; J7506; J7620; P9045

== ENCOUNTER 2017-12-06 13:17 | Outpatient (CLI) | payer MEDICARE, BC ==
--- NOTE | 2017-12-06 14:37 | RAD ---
PA AND LATERAL VIEWS CHEST: HISTORY: Malignant neoplasm of upper lobe. FINDINGS: Comparison is made with the exam of 11/09/17. The heart size is borderline. The aorta is tortuous. Postop changes in the right hilar region are a gain seen. No lobar consolidation, pneumothoraces, neal pulmonary edema, or bilateral pleural effus ions are identified. There are degenerative changes in the spine. POS: [facility]
== END 2017-12-06 13:18 | disposition home or self-care (01) ==
LOC: RAD 13:17
PROVIDERS: ATTEND Thoracic Surgery (Cardiothoracic Vascular Surgery)
DX: C34.11 Malignant neoplasm of upper lobe, right bronchus or lung (principal)
CPT/HCPCS: 71046

== ENCOUNTER 2018-03-07 13:02 | Outpatient (CLI) | payer MEDICARE, BC ==
--- NOTE | 2018-03-07 14:07 | RAD ---
FRONTAL AND LATERAL IMAGING OF THE CHEST: Date: 03-07-18 Comparison: 12-06-17 History: Malignant neoplasm of the right upper lobe. FINDINGS: Post-operative clips are again seen in the right hilar region. No pneumothorax or pleural fluid is se en. There is no focal consolidation or alveolar edema. There is atherosclerotic calcification in the aortic arch. There is elevation of the right hemidiaphragm, stable. There is stable atherosclerotic calcification of the abdominal aorta and there is stable multilevel mild degenerative changes of visualized spine. IMPRESSION: Chronic findings as described above. No acute findings are seen. POS: [facility]
== END 2018-03-07 13:03 | disposition home or self-care (01) ==
LOC: RAD 13:02
PROVIDERS: ATTEND Thoracic Surgery (Cardiothoracic Vascular Surgery)
DX: C34.11 Malignant neoplasm of upper lobe, right bronchus or lung (principal); I70.0 Atherosclerosis of aorta; M47.9 Spondylosis, unspecified
CPT/HCPCS: 71046

== ENCOUNTER 2018-08-02 16:05 | Outpatient (CLI) | payer MEDICARE, BC ==
--- NOTE | 2018-08-02 17:19 | RAD ---
LEFT FEMORAL RADIOGRAPHS 2 VIEWS: Date: 08/02/18 PROVIDED CLINICAL HISTORY: Left leg pain. FINDINGS: No comparisons. There is patchy sclerosis present within the mid left femoral diaphysis with apparent cortical thicke maggy and adjacent periosteal reaction. No definite bone lysis is seen. The left hip and left knee joint spaces appear preserved. IMPRESSION: Abnormal appearance to the mid femoral diaphysis. A metastatic lesion should be considered. Correlati on with whole body bone scan is recommended. POS: [facility]
--- NOTE | 2018-08-02 17:37 | RAD ---
LEFT KNEE RADIOGRAPHS THREE VIEWS: 08/02/18 PROVIDED CLINICAL HISTORY: Left leg pain. FINDINGS: No evidence for fracture or other acute osseous abnormality. Alignment appears anatomic. Joint spaces appear preserved. IMPRESSION: No evidence for an acute osseous abnormality or significant arthropathy. POS: [facility]
== END 2018-08-02 16:06 | disposition home or self-care (01) ==
LOC: SCSRAD 16:05
PROVIDERS: ATTEND Family Medicine
DX: M25.562 Pain in left knee (principal); M79.605 Pain in left leg

== ENCOUNTER 2018-08-14 09:36 | Outpatient (CLI) | payer MEDICARE, BC ==
--- NOTE | 2018-08-14 15:23 | NM ---
WHOLE BODY BONE SCAN: HISTORY: Lesion of left femur. Malignant neoplasm of right upper lobe. RADIOPHARMACEUTICAL: 30 mCi Technetium 99m-MDP injected intravenously. FINDINGS: There is focal intense uptake in the mid shaft of the left femur corresponding to findings on the ashvin in radiograph of 08/02/2018.This is suspicious for metastatic disease. There is increased uptake in the right side of the cervical spine likely due to degenerative changes. Increased uptake in the shoulders, elbows, and wrists are consistent with degenerative changes. Trac er excretion through the kidneys is within normal limits. IMPRESSION: 1. Findings are suspicious for malignancy/metastatic disease in the left femoral shaft. 2. Probable degenerative changes in the cervical spine. Radiographic correlation is recommended. POS: [facility]
== END 2018-08-14 09:37 | disposition home or self-care (01) ==
LOC: NM 09:36
PROVIDERS: ATTEND Family Medicine
DX: M89.9 Disorder of bone, unspecified (principal)
CPT/HCPCS: 78306; A9503

== ENCOUNTER 2018-08-21 13:19 | Outpatient (CLI) | payer MEDICARE, BC ==
[2018-08-21] MEDS ORDERED: ISOVUE-370 76%-LOCM 1 ML ONE (15:54)
--- NOTE | 2018-08-21 17:00 | CT ---
LEFT FEMUR CT WITHOUT IV CONTRAST: Date: 08/21/18 HISTORY: 73-year-old female with history of lung cancer, C34.90, right upper lobe remoted previously. COMPARISON: Bone scan dated 08/14/18. Left femur dated 08/02/18. FINDINGS: There is a fairly prominent infiltrating process involving the mid left femoral diaphysis extending a pproximately 6.5 cm in craniocaudal dimension with infiltration of the entire cortex and medullary sp mayra, which certainly could be consistent with an aggressive bone lesion including bone metastasis. No evidence for significant soft tissue mass component. IMPRESSION: Large, poorly circumscribed infiltrating bone mass involving the mid femoral shaft, cortex, and medul katya space, approximating 6.5 cm in craniocaudal dimension, and corresponding to the abnormal activit y on the bone scan. POS: [facility]
--- NOTE | 2018-08-21 17:20 | CT ---
CHEST CT SCAN WITH IV CONTRAST ABDOMEN AND PELVIC CT SCAN WITH IV CONTRAST: 08/21/18 HISTORY: 73-year-old female with history of lung cancer, C34.9. Has had prior right upper lobe removed. Was in respiratory failure following surgery. Prominent atherosclerotic changes are noted of the aorta with extensive calcifications as well as thr ee vessel coronary artery calcific disease. There is some linear scarring on the right, evidence for prior right sided surgery. There is an approximately 2.1 cm diameter fairly circumscribed slightly lo w attenuation nodular area with attenuation equal to that of fluid. This could represent a bronchogen ic cyst or possibly a lymphocele. I favor a fluid origin for this structure rather than lymphadenopat hy given its low attenuation and circumscribed appearance. No pleural effusion or pericardial effusio n. In the abdomen, there are two small, less than 0.5 cm diameter circumscribed low attenuation foci wit hin the liver statistically small cysts. The gallbladder, pancreas, spleen, adrenal glands are unrema rkable. There is some renal vascular calcifications as well as prominent calcifications of the aorta but no evidence for overt renal calculi. There is noted to be a circumscribed 1.7 x 2.6 cm diameter f illing defect within the transverse colon with fatty attenuation coefficients probably some type of a fatty polyp. There are a few scattered diverticulosis changes in the left colon and sigmoid colon wi thout CT evidence for acute diverticulitis. Normal appearing appendix. Small calcified fibroids in th e uterus. No abscess or abnormal fluid collection. No evidence for metastases. IMPRESSION: Circumscribed low attenuation focus in the right upper paratracheal region, I favor this representing some kind of a cyst such as a bronchogenic cyst or possibly a lymphocele over that of low attenuatio n lymph node. Some postop changes in the right upper chest, evidence for prior lobectomy. Prominent a rterial vascular calcifications of the aorta. Three vessel coronary artery calcific disease. Two smal l hypodensities within the liver statistically small cysts. Evidence for a fatty density filling defe ct within the transverse colon probably some type of a lipomatous polyp or intraluminal fatty mass. O ther findings as above. POS: [facility]
== END 2018-08-21 13:20 | disposition home or self-care (01) ==
LOC: BICCT 13:19
PROVIDERS: ATTEND Internal Medicine
DX: C34.90 Malignant neoplasm of unspecified part of unspecified bronchus or lung (principal); R93.6 Abnormal findings on diagnostic imaging of limbs; I70.0 Atherosclerosis of aorta; I25.10 Atherosclerotic heart disease of native coronary artery without angina pectoris; K76.89 Other specified diseases of liver; K63.89 Other specified diseases of intestine; M89.8X5 Other specified disorders of bone, thigh; Z90.2 Acquired absence of lung [part of]
CPT/HCPCS: 71260; 74177; 82565

== ENCOUNTER 2018-08-28 08:07 | Outpatient (CLI) | payer MEDICARE, BC ==
--- NOTE | 2018-08-28 10:47 | MRI ---
MRI LEFT FEMUR WITH AND WITHOUT CONTRAST: INDICATIONS: A 73-year-old female. History of malignant neoplasm of the upper lobe, now with concern for possible metastatic disease to the left femur. COMPARISON: CT left lower extremity dated 08/21/2018, a bone scan dated 08/14/2018, and a radiograph of the left femur dated 08/02/2018. TECHNIQUE: Multiplanar, multisequence MR images were obtained of the left femur with and without IV contrast, ut ilizing 12 mL of MultiHance. FINDINGS: Corresponding to the area of aggressive appearing periosteal reaction of the left mid femur on the pr ior exams is a low area of T1 signal abnormality filling the bone marrow space of the mid shaft left femur. There is prominent surrounding periosteal reaction involving the mid shaft femur. There is a bnormal signal and enhancement involving the medullary cavity of the mid shaft femur, extending to th e metadiaphyseal region of the distal femur, up to the proximal one-third of the left femur. The ove rall size of the lesion measures 2.4 cm in its greatest craniocaudal dimension. There is no overt ex traosseous soft tissue mass. There is an aggressive appearing periosteal reaction around the midshaf t. There is no overt evidence to suggest a pathologic fracture. No additional marrow signal abnorma lity is evident. IMPRESSION: Findings highly suspicious for osseous metastatic disease of the mid shaft of the left femur with pro minent exuberant periosteal reaction and periosteal edema. This lesion likely would be amenable for percutaneous sampling; however, there is risk in developing a stress riser at the level of the bone b iopsy site of the mid shaft femur from the actual bone sampling. Having this coordinated with an ort hopedic surgeon may be helpful. No large periosseous soft tissue mass is available for percutaneous sampling. The patient would be at risk for a pathologic fracture. POS: [facility]
[2018-08-28] MEDS ORDERED: Gadobenate Dimeglumine 529 MG/1 ML (20ML VIAL) ONE (13:27)
== END 2018-08-28 08:08 | disposition home or self-care (01) ==
LOC: MRI 08:07
PROVIDERS: ATTEND Internal Medicine Hematology & Oncology
DX: C34.11 Malignant neoplasm of upper lobe, right bronchus or lung (principal); R60.0 Localized edema
CPT/HCPCS: A9579

== ENCOUNTER 2018-10-29 14:52 | Outpatient (CLI) | payer MEDICARE, BC ==
--- NOTE | 2018-10-29 15:42 | RAD ---
CHEST 2 VIEWS: COMPARISON: 03/07/2018. HISTORY: Right upper lobe cancer. FINDINGS: Postoperative changes of the right hemithorax. Stable aeration of the left lung. There is no pneumo thorax or osseous abnormalities. Stable configuration of the cardiac silhouette. Atherosclerosis of the aorta is noted. IMPRESSION: Stable postoperative changes. POS: [facility]
== END 2018-10-29 14:53 | disposition home or self-care (01) ==
LOC: RAD 14:52
PROVIDERS: ATTEND Thoracic Surgery (Cardiothoracic Vascular Surgery)
DX: C34.11 Malignant neoplasm of upper lobe, right bronchus or lung (principal); Z98.890 Other specified postprocedural states
CPT/HCPCS: 71046

== ENCOUNTER 2018-11-22 09:09 | Outpatient (CLI) | payer MEDICARE, BC ==
[2018-11-22] MEDS ORDERED: Gadobenate Dimeglumine 529 MG/1 ML (20ML VIAL) ONE (10:33)
--- NOTE | 2018-11-22 12:06 | MRI ---
MRI OF THE LEFT FEMUR WITH AND WITHOUT CONTRAST: INDICATION: History of metastatic disease of the left femur. CONTRAST: 10 cc of MultiHance. COMPARISON: MRI of the left lower extremity dated 08/28/2018. FINDINGS: The extent of the central marrow signal abnormality consistent with metastatic disease appears slight ly less. The craniocaudad dimensions of the sigmoid abnormality involving the femoral shaft extendin g into the distal metadiaphyseal region and distal left femoral metaphysis is slightly smaller. The main area of marrow signal abnormality now measures 14 cm greater caudad dimension where previously i t measured approximately 21 cm. There is much more exuberant periosteal reaction involving the mid s haft of femur and proximal metadiaphyseal region of the femur. No definite evidence for pathologic fr acture. There is persistent mild periosteal edema and reaction seen about the mid shaft of the left femur. No large perosseous soft tissue mass is evident. IMPRESSION: Findings consistent with some response to therapy involving the left mid shaft femoral metastatic les ion. The craniocaudad extent of the marrow signal abnormality has improved slightly. There is incre ased cortical thickening and periosteal reaction of the mid shaft femur indicative of some healing anuj ne. There are no overt changes to suggest the presence of a pathologic fracture. POS: [facility]
--- NOTE | 2018-11-22 15:35 | PET ---
RADIONUCLIDE PET SCAN WITH CT ATTENUATION CORRECTION: Date: 11/22/18 HISTORY: Right upper lobe lung cancer. Restaging. COMPARISON: 08/21/18. FINDINGS: Physiologic uptake of radiotracer throughout the enteric system and along each urinary tract. Postope rative changes of the right upper lobe lung with resection of the previous hypermetabolic mass. No ne w areas of hypermetabolic activity are apparent. No abnormal uptake within the visualized mediastinum without bulky adenopathy evident on the nondiagnostic CT attenuation correction images. No abnormal uptake is associated with the adrenal glands. The nondiagnostic CT attenuation correction images show prominent calcification throughout the arteri al structures. IMPRESSION: 1. Interval resection of the right upper lobe mass. No evidence of residual or recurrent neoplasm. 2. Atherosclerosis. POS: [facility]
== END 2018-11-22 09:10 | disposition home or self-care (01) ==
LOC: BICMRI 09:09
PROVIDERS: ATTEND Internal Medicine Hematology & Oncology
DX: C79.51 Secondary malignant neoplasm of bone (principal); C34.90 Malignant neoplasm of unspecified part of unspecified bronchus or lung
CPT/HCPCS: 73723; 78815; 82565; A9552; A9577

== ENCOUNTER 2018-12-05 15:35 | Outpatient (CLI) | payer MEDICARE, BC ==
--- NOTE | 2018-12-05 17:17 | RAD ---
LEFT FEMUR TWO VIEWS: 12/05/18 HISTORY: Left leg pain. Metastatic carcinoma. COMPARISON: 08/02/18. FINDINGS: Irregular cortical thickening along the shaft of the femur has increased since the previous exam with long segment subtle permeative lucency involving the abnormal cortex. No definite periosteal reactio n. No fracture planes are visible. There is calcification in the arterial structures. IMPRESSION: 1. Interval worsening radiographic appearance of the cortical thickening and aggressive neoplast ic changes of the left femoral shaft. No fractures or apparent. 2. Atherosclerosis. POS: [facility]
== END 2018-12-05 15:36 | disposition home or self-care (01) ==
LOC: BICRAD 15:35
PROVIDERS: ATTEND Orthopaedic Surgery
DX: C79.9 Secondary malignant neoplasm of unspecified site (principal); I70.90 Unspecified atherosclerosis

== ENCOUNTER 2019-01-07 16:50 | Outpatient (CLI) | payer MEDICARE, BC ==
--- NOTE | 2019-01-07 18:15 | ULT ---
VENOUS DUPLEX SONOGRAM LEFT LOWER EXTREMITY: History: Left leg pain and edema. FINDINGS: The left common femoral vein and greater saphenous junction were evaluated along with the femoral, de ep femoral, popliteal, and posterior tibial veins. There is good color and spectral doppler flow, com pression, and augmentation. IMPRESSION: No sonographic evidence of DVT within the left lower extremity. POS: [facility]
== END 2019-01-07 16:51 | disposition home or self-care (01) ==
LOC: ULT 16:50
PROVIDERS: ATTEND Internal Medicine Hematology & Oncology
DX: I82.90 Acute embolism and thrombosis of unspecified vein (principal); M79.605 Pain in left leg; M79.89 Other specified soft tissue disorders

== ENCOUNTER 2019-02-05 12:45 | Outpatient (CLI) | payer MEDICARE, BC ==
--- NOTE | 2019-02-05 14:42 | ULT ---
VENOUS DOPPLER ULTRASOUND OF THE LEFT LOWER EXTREMITY: Date: 02/05/19 HISTORY: Left lower extremity edema. TECHNIQUE: Ramso scale ultrasound with color flow and spectral Doppler imaging of the deep venous system of the l eft lower extremity is performed. FINDINGS: There is good flow, compression, and augmentation noted in the left common femoral, femoral, deep fem oral, popliteal, posterior tibial, and greater saphenous veins. Prominent lymph nodes are seen in the left groin, measuring up to 1.0 cm. IMPRESSION: No evidence of deep venous thrombosis in the left lower extremity. POS: [facility]
== END 2019-02-05 12:46 | disposition home or self-care (01) ==
LOC: BICULT 12:45
PROVIDERS: ATTEND Family Medicine
DX: R60.0 Localized edema (principal)

== ENCOUNTER 2019-03-01 08:30 | Outpatient (CLI) | payer MEDICARE, BC ==
--- NOTE | 2019-03-01 10:53 | PET ---
EXAM: PET/CT HISTORY: Lung cancer, left femoral mass. Radiation to the left high in August 2018. Patient had right upper lobectomy. TECHNIQUE: PET scanning with CT attenuation correction was performed from the vertex to the feet following the i ntravenous administration of 12.6 millicuries [id number]. COMPARISON: None. CORRELATION: Left femur radiographs of 12/05/2018 FINDINGS: There are hypermetabolic mediastinal lymph nodes in the right paratracheal region with an SUV of 2.6. No lance hypermetabolism is seen in the neck, axillae, hilar regions, abdomen, pelvis, inguinal, femoral or popliteal regions. There is a solitary hypermetabolic lesion in the right lobe of the liver with an SUV of 8.5. No hyper metabolic pulmonary nodules or adrenal lesions are seen. There is a hypermetabolic lesion in the left sacrum with an SUV of 6.2. Foci of increased uptake is s een in the left femur with 10 SUVs of 10.1 in the distal posterior medial aspect, 4.3 and the distal mid posterior aspect and 3.6 in the mid shaft. There is physiologic activity in the GI and tracts, heart and the brain. The CT scan used for attenuation correction demonstrates no evidence of pleural effusions or ascites. IMPRESSION: Findings are consistent with metastatic disease.
[2019-03-01] MEDS ORDERED: Gadobenate Dimeglumine 529 MG/1 ML (20ML VIAL) ONE (11:04)
--- NOTE | 2019-03-01 12:12 | MRI ---
MRI Lower Ext Jt Lt W WO Con History: [C 34.1 left femoral mass. Radiation therapy. See 79.51 lung cancer] Comparison: Left femur MRI November 22, 2018 Findings: The dominant intramedullary mass of the left femur measures approximately 16 cm in length, previously 14 cm in length. A satellite peripheral distal femoral mass has increased in size, now measuring approximately 14 mm in transverse dimension, previously 8 mm. There is also size increase d istal femoral metaphyseal metastatic foci measuring 11 in greatest dimension, previously 5 mm. There is a new focal posterior metaphyseal metastatic focus measuring 12 mm in greatest dimension. Cortical erosive changes have increased from the comparison examination posteriorly at the mid femora l diaphysis. There is extensive enhancement of the adjacent musculature which may be posttreatment in nature. There is deep fascial edema around the vastus lateralis muscle, likely posttreatment in na ture. Normal flow voids within the femoral vasculature. Impression: Progressive osseous metastatic disease.
== END 2019-03-01 08:31 | disposition home or self-care (01) ==
LOC: PET 08:30
PROVIDERS: ATTEND Internal Medicine Hematology & Oncology
DX: C34.11 Malignant neoplasm of upper lobe, right bronchus or lung (principal); C79.51 Secondary malignant neoplasm of bone
CPT/HCPCS: 73723; 78816; 82565; A9552; A9577

== ENCOUNTER 2019-03-14 08:55 | Day surgery (SDC) | payer MEDICARE, BC ==
[2019-03-13 13:59] VITALS: BMI 27.6
[~2019-03-14 08:55] MED LIST: Prevnar 13-Val Conj/PF 0.5 ML SYRINGE IM ONE
[2019-03-14 09:18] LABS: #Lymphocytes 1.4 thou/uL (1.20-3.40); #Monocytes 1.3 thou/uL (0.11-0.59); #Neutrophils 8.7 thou/uL (1.40-6.50); %Basophils 0.2 % (0.0-1.0); %Eosinophils 0.2 % (0.0-10.0); %Lymphocytes 12.5 % (21.0-51.0); %Neutrophils 76.1 % (42.0-75.0); Hemoglobin 12.6 g/dL (12.0-16.0); Mean Corpuscular HGB CONC 31.9 g/dL (32.0-36.0); Mean Corpuscular Hemoglobin 28.4 pg (27.0-31.0); Mean Corpuscular Volume 88.7 fL (78.0-98.0); Mean Platelet Volume 6.6 fL (7.4-10.4); Platelet Count 417 thou/uL (130-400); RBC Distribution Width 13.6 % (11.5-14.5); Red Blood Cell (RBC) Count 4.45 mill/uL (4.20-5.40); White Blood Cell (WBC) Count 11.5 thou/uL (4.8-10.8)
[2019-03-14 09:37] LABS: PTT 33.1 SEC (22.9-36.1); Prothrombin Time 13.1 SEC (12.0-14.7)
[2019-03-14] MEDS ORDERED: Fentanyl 100 MCG/2 ML VIAL ONE (10:43)
[2019-03-14] MEDS ORDERED: Midazolam HCl 2 mg/2 ml Vial ONE (10:43)
[2019-03-14] MEDS ORDERED: Sodium Bicarbonate 2.5 MEQ/5 ML VIAL ONE (10:44)
[2019-03-14] MEDS ORDERED: Iopamidol 370 76% 100 ML VIAL ONE (11:39)
--- NOTE | 2019-03-14 12:03 | CT ---
CT Liver Perc Biopsy CT GUIDED HEPATIC BIOPSY: CLINICAL HISTORY: Hypermetabolic liver mass. History of pulmonary malignancy. PROCEDURE: Informed consent was obtained and the patient was escorted to the procedural suite, placed in supine position. Conscious sedation for a total of 45 minutes was performed, administered by the radiology nurse, with the patient consistently monitored throughout the duration of the exam in stable conditio n. The patient's skin was prepped and draped in a standard sterile fashion and topical anesthesia with buffered 1% lidocaine was performed. After a small skin incision was made, an 18-gauge needle we re advanced to the leading edge of the right hepatic lobe lesion. After adequate placement was confirmed with CT fluoroscopic imaging, 3 subsequent core specimens were obtained via percutaneous b iopsy. These were confirmed with CT fluoroscopic imaging and the specimens were submitted to the pathologist for adequacy. Specimens were deemed adequate for interpretation. Therefore, all devices w ere then removed from the patient. No unexpected procedural complications were present. The patient was monitored in radiology holding i n stable condition prior to discharge with family member. IMPRESSION: Technically successful percutaneous hepatic biopsy. Pathology results are pending.
--- NOTE | 2019-03-14 12:09 | CT ---
EXAM: Abdominal CT scan with and without contrast: HISTORY: Hepatic lesion. History of pulmonary malignancy COMPARISON: Reference is made to 03/01/[address] exam FINDINGS: Partially imaged irregular density of the right middle lobe with adjacent reticular nodularity is inc ompletely imaged. Parenchymal scarring is seen at the lung bases. Liver: 2 cm enhancing mass occupies the anterior segment, right hepatic lobe, accounting for hypermet abolic lesion on recent PET scan. Additional punctate hypoattenuating foci of the hepatic parenchyma are too small to definitively characterize Gallbladder: Unremarkable. Pancreas: Unremarkable Spleen: Unremarkable. Adrenal glands: Unremarkable. Kidneys: Punctate calculi are seen within the bilateral kidneys, favoring vascular distribution of ca lcification. Small hypodensities of each kidney are present, too small to definitively characterize. Left-sided extrarenal pelvis is mildly prominent, without inflammation Bowel: No evidence for bowel obstruction. Adenopathy: No adenopathy within the abdomen or pelvis. Free Air: No free air. Ascites: No ascites. Osseous structures: No acute osseous abnormalities. Diffuse atherosclerotic vascular disease. IMPRESSION: 2 cm enhancing lesion of right hepatic lobe is indicative of malignancy. Additional findings are detailed above. Transcribed Date/Time: 03/14/2019 1:40 PM
== END 2019-03-14 12:25 | disposition home or self-care (01) ==
LOC: CT 08:55 → EDSTATUS 09:30 → CT 12:25
PROVIDERS: ATTEND Internal Medicine Hematology & Oncology
PROC: 0FB13ZX Excision of Right Lobe Liver, Percutaneous Approach, Diagnostic (ICD-10-PCS; principal; 2019-03-14)
DX: C78.7 Secondary malignant neoplasm of liver and intrahepatic bile duct (principal); C34.11 Malignant neoplasm of upper lobe, right bronchus or lung; C79.51 Secondary malignant neoplasm of bone; I10 Essential (primary) hypertension; F41.9 Anxiety disorder, unspecified; E78.5 Hyperlipidemia, unspecified; E89.2 Postprocedural hypoparathyroidism; J44.9 Chronic obstructive pulmonary disease, unspecified; F32.9 Major depressive disorder, single episode, unspecified; K21.9 Gastro-esophageal reflux disease without esophagitis; F17.210 Nicotine dependence, cigarettes, uncomplicated; Z79.2 Long term (current) use of antibiotics; Z79.52 Long term (current) use of systemic steroids; Z79.891 Long term (current) use of opiate analgesic; Z79.899 Other long term (current) drug therapy; Z88.1 Allergy status to other antibiotic agents; Z88.8 Allergy status to other drugs, medicaments and biological substances
CPT/HCPCS: 36415; 47000; 74170; 77012; 82565; 85025; 85610; 85730; 88307; 88333; 88341; 88342; J2250; J3010; Q9967

== ENCOUNTER 2019-03-22 09:21 | Outpatient (CLI) | payer MEDICARE, BC ==
--- NOTE | 2019-03-22 11:02 | MRI ---
Exam: Brain MRI with and without contrast HISTORY: Right upper lobe malignant tumor. Bone metastases. Eval for brain metastases. COMPARISON: None FINDINGS: Gradient echo sequence: No hemorrhage Calvarium: Appropriate T1 marrow signal intensity Midline brain parenchyma: Unremarkable Cerebrum:No parenchymal mass, mass effect or midline shift. Volume, age-appropriate. Cortical bryan-wh ite matter attenuation preserved. T2 and FLAIR white matter hyperintensities, nonspecific but favored to be due to chronic small vessel ischemic change. Ventricles: No evidence of hydrocephalus. Sinuses and mastoid air cells: Adequate aeration Diffusion: Central arterial flow is maintained. Absent restricted diffusion. Postcontrast images: No pathologic enhancement of the brain parenchyma. IMPRESSION: Limited evaluation the postcontrast images due to motion degradation. Nevertheless, no pathologic enh ancement brain parenchyma.
== END 2019-03-22 09:22 | disposition home or self-care (01) ==
LOC: MRI 09:21
PROVIDERS: ATTEND Internal Medicine Hematology & Oncology
DX: C34.11 Malignant neoplasm of upper lobe, right bronchus or lung (principal); C79.51 Secondary malignant neoplasm of bone
CPT/HCPCS: 70553

== ENCOUNTER 2019-04-09 08:37 | Day surgery (SDC) | payer MEDICARE, BC ==
[2019-04-08 17:15] VITALS: BMI 25.9
[2019-04-09] MEDS ORDERED: Sodium Chloride 0.9% 100 ML ONE (11:07)
[2019-04-09] MEDS ORDERED: CEFAZOLIN 1 GM VIAL ONE (11:07)
[2019-04-09] MEDS ORDERED: Lidocaine 1% (PF) 30 ML VIAL ONE (11:23)
[2019-04-09] MEDS ORDERED: Sodium Chloride 0.9% 0 ML ONE (12:03)
[2019-04-09] MEDS ORDERED: PROPOFOL 200 MG/20 ML VIAL ONE (12:16)
[2019-04-09] MEDS ORDERED: ePHEDrine 50 MG/ML VIAL ONE (12:16)
[2019-04-09] MEDS ORDERED: Fentanyl 100 MCG/2 ML VIAL ONE (12:25)
--- NOTE | 2019-04-09 13:14 | OP ---
DATE OF PROCEDURE: 04/09/2019 PREOPERATIVE DIAGNOSIS: Need for long-term chemotherapy access. POSTOPERATIVE DIAGNOSIS: Need for long-term chemotherapy access. PROCEDURE PERFORMED: Left subclavian single port MediPort placement. ANESTHESIA: 1% lidocaine for local with IV sedation. DESCRIPTION OF PROCEDURE: After consent was obtained, chest wall was prepped and draped in usual sterile fashion. The patient was placed under anesthetic. The chest wall was then anesthetized with 1% lidocaine. Percutaneous access of the subclavian vein was obtained and a guidewire passed. A subcutaneous pocket was created in the port connected. The catheter was then tunneled to the wire access site. Using fluoroscopic guidance, the catheter was cut to appropriate length. The peel-away sheath was then placed under fluoroscopic guidance. The catheter was passed through the peel-away sheath and the peel-away sheath was removed. Catheter flushed and flowed nicely. CXR in the OR under flouro shows no pneumothorax The patient tolerated the procedure well and was transferred to the recovery room and then for chemotherapy later today. Job ID: [id number] [facility]
== END 2019-04-09 14:00 | disposition home or self-care (01) ==
LOC: SDC 08:37
PROVIDERS: ATTEND Thoracic Surgery (Cardiothoracic Vascular Surgery)
PROC: 05H633Z Insertion of Infusion Device into Left Subclavian Vein, Percutaneous Approach (ICD-10-PCS; principal; 2019-04-09)
DX: Z45.2 Encounter for adjustment and management of vascular access device (principal); C34.11 Malignant neoplasm of upper lobe, right bronchus or lung; I10 Essential (primary) hypertension; J44.0 Chronic obstructive pulmonary disease with (acute) lower respiratory infection; F41.9 Anxiety disorder, unspecified; Z88.1 Allergy status to other antibiotic agents; Z88.6 Allergy status to analgesic agent; Z88.8 Allergy status to other drugs, medicaments and biological substances; Z79.891 Long term (current) use of opiate analgesic; Z79.899 Other long term (current) drug therapy
CPT/HCPCS: 93005; 93010; C1788; J0690; J1642; J2001; J2704; J3010; J3490

== ENCOUNTER 2019-07-05 09:01 | Outpatient (CLI) | payer MEDICARE, BC ==
--- NOTE | 2019-07-05 11:05 | PET ---
EXAM: PET CT skull apex to the feet COMPARISON: 03/01/2019 HISTORY: Malignant neoplasm of the right upper lobe of the lung with secondary malignant neoplasm of the bone TECHNIQUE: A PET/CT was performed from the apex of the skull through the feet after administration of 10.6 millicuries of F-18 FDG. Evaluation was performed on a [employer] workstation. FINDINGS: INTRACRANIAL: No areas of increased or decreased metabolic activity. NECK: No areas of hypermetabolic activity CHEST: There is an area of metabolic but not hypermetabolic activity in the right lower lobe of the l ungs which does not appear masslike with a max SUV value of 2.3. ABDOMEN/PELVIS: Focal hypermetabolic activity is seen in the right lobe of the liver with a maximum S UV value of 2.7. No other areas of hypermetabolic activity SKELETON: Diffuse abnormal hypermetabolic activity is seen in the skeleton. The previously seen area of hypermetabolic activity in the left femur demonstrate sclerosis without hypermetabolic activity and a max SUV value of 2.3. Scattered hypermetabolic areas are seen in the calvarium, spine, sacrum, bones of the pelvis, left femur, and left tibia/fibula. Most of these lesions do not have a CT correlate but where a lesion is present, generally a lytic appearance is seen. Maximum SUV value of t he osseous lesions is 10.5 in the left femur. CT images used for attenuation correction show a Mediport with its tip in the superior vena cava. Francisco cifications are seen in the aorta.. IMPRESSION: 1. Severe worsening of diffuse osseous metastatic disease 2. Nonspecific hypermetabolic activity in the right lobe of the liver may represent a metastatic lesi on.
== END 2019-07-05 09:02 | disposition home or self-care (01) ==
LOC: PET 09:01
PROVIDERS: ATTEND Internal Medicine Hematology & Oncology
DX: C34.11 Malignant neoplasm of upper lobe, right bronchus or lung (principal); C79.51 Secondary malignant neoplasm of bone; R94.8 Abnormal results of function studies of other organs and systems
CPT/HCPCS: 78816; A9552

== ENCOUNTER 2019-07-18 01:08 | Inpatient (IN) | payer MEDICARE, BC ==
[2019-07-18 01:27] LABS: #Eosinphils 0.1 thou/uL (0.0-0.7); #Lymphocytes 1.2 thou/uL (1.20-3.40); #Monocytes 1.4 thou/uL (0.11-0.59); #Neutrophils 9.7 thou/uL (1.40-6.50); %Eosinophils 0.6 % (0.0-10.0); %Lymphocytes 9.4 % (21.0-51.0); %Monocytes 11.3 % (0.0-10.0); %Neutrophils 78.6 % (42.0-75.0); Hemoglobin 7.9 g/dL (12.0-16.0); Mean Corpuscular HGB CONC 30.9 g/dL (32.0-36.0); Mean Corpuscular Hemoglobin 29.9 pg (27.0-31.0); Mean Corpuscular Volume 96.8 fL (78.0-98.0); Mean Platelet Volume 7.9 fL (7.4-10.4); Platelet Count 255 thou/uL (130-400); RBC Distribution Width 26.2 % (11.5-14.5); Red Blood Cell (RBC) Count 2.62 mill/uL (4.20-5.40); White Blood Cell (WBC) Count 12.3 thou/uL (4.8-10.8)
[2019-07-18] MEDS ORDERED: Lidocaine 1% (PF) 30 ML VIAL ONE (01:34)
[2019-07-18] MEDS ORDERED: Succinylcholine Chloride 20 MG/ML 10 ml SYRINGE FS ONE (01:35)
[2019-07-18] MEDS ORDERED: DOPamine 400 MG/D5W 250 ML 0 ML ONE (01:40)
[2019-07-18] MEDS ORDERED: DOPamine 400 MG/D5W 250 ML 250 ML ONE (01:43)
[2019-07-18 01:44] LABS: INR-International Normal Ratio 1.3; PTT 35.9 SEC (22.9-36.1); Prothrombin Time 16.2 SEC (12.0-14.7)
[2019-07-18 01:45] LABS: Anisocytosis MODERATE=16-30 cells (100X) (0-5/hpf); Elliptocytes SLIGHT = 2-5 cells (100X) (0-1/hpf); Hypochromia SLIGHT = 6-15 cells (100X) (0-5/hpf); MDiff Complete? YES; Ovalocytes SLIGHT = 2-5 cells (100X) (0-1/hpf); Platelet Morphology Comment Appears Adequate; Polychromasia SLIGHT = 2-3 cells (100X) (0-2/hpf); Schistocytes SLIGHT = 2-5 cells (100X) (0-1/hpf); Tear Drops SLIGHT = 2-5 cells (100X) (0-1/hpf)
[2019-07-18 01:48] LABS: ALT (SGPT) 67 U/L (8-55); AST (SGOT) 208 U/L (5-34); Albumin 2.4 g/dL (3.4-4.8); Alkaline Phosphatase 182 U/L (40-110); Anion Gap 24 mmol/L (10-20); BUN (Urea Nitrogen) 23 mg/dL (9.8-20.1); Bilirubin, Total 0.4 mg/dL (0.2-1.2); Calc. Creatinine Clearance 0 mL/min (70-130); Calcium 7.2 mg/dL (7.8-10.44); Carbon Dioxide 14 mmol/L (23-31); Chloride 101 mmol/L (98-107); Estimated GFR-MDRD 32; Globulin 2.6 g/dL (2.4-3.5); Glucose 101 mg/dL (83-110); Lipase 5 U/L (8-78); Potassium 3.6 mmol/L (3.5-5.1); Sodium 135 mmol/L (136-145)
[2019-07-18] MEDS ORDERED: Fentanyl 100 MCG/2 ML VIAL ONE (02:14)
[2019-07-18 02:20] LABS: CKMB 73.7 ng/mL (0-6.6)
[2019-07-18] MEDS ORDERED: Midazolam HCl 2 mg/2 ml Vial ONE (02:37)
[2019-07-18] MEDS ORDERED: Heparin 10,000 UNITS/1 ML VIAL ONE (02:37)
[2019-07-18] MEDS ORDERED: Protamine Sulfate 50 MG/5 ML VIAL ONE (03:53)
[2019-07-18] MEDS ORDERED: Fentanyl 100 MCG/2 ML VIAL SLOW IVP PRN (04:14)
[2019-07-18] MEDS ORDERED: Midazolam HCl 2 mg/2 ml Vial SLOW IVP PRN (04:15)
[2019-07-18] MEDS ORDERED: Sodium Chloride 0.9% 1,000 ML IV SCH ×3 (04:15→19:30)
[2019-07-18 04:27] LABS: Actual Bicarbonate (HCO3a) 21.7 mEq/L (22-28); Base Excess (BEa) -3.8 mEq/L (-2.0 to +3.0); CO2 Tension 41.4 mmHg (35.0-45.0); Calcium, Ionized 1.03 mmol/L (1.12-1.30); Carboxyhemoglobin (COHb) 2.4 gm% (0.0-3.0); Hemoglobin (Hb) 9.7 g/dL (12.0-16.0); O2 Tension (PaO2) 153.8 mmHg (> 70.0); pH, Arterial 7.34 (7.35-7.45)
--- NOTE | 2019-07-18 04:27 | HP ---
REASON FOR ADMISSION: Acute myocardial infarction with heart block. HISTORY OF PRESENT ILLNESS: Ms. Gilliland is a 74-year-old woman. The patient presented to the emergency room complaining of severe chest pain. EKG showed severe ST elevation in the inferior leads with ongoing chest pain. The EKG showed 2:1 AV block with bradycardia. The patient was in respiratory distress, unable to lay down. Intubation would have to be done urgently. Therefore, no other acute history was available to me. I did discuss with her cardiac catheterization, the risks and benefits prior to her intubation. PAST MEDICAL HISTORY: 1. The patient has a history of lung cancer. She has had a history of surgical therapy for non-small cell cancer. She had a right thoracotomy and upper lobectomy. She quit smoking in October 2017, but unfortunately resumed smoking due to pain. 2. Patient has a history of bilateral carotid disease. 3. History of left ventricular hypertrophy. 4. Aortic sclerosis. MEDICATION: That were listed in Dr. Echevarria' note last September were; 1. Sertraline. 2. Losartan HCT. 3. Amlodipine. 4. Ibuprofen. 5. A pain medicine. ALLERGIES: NONE KNOWN. SOCIAL HISTORY: Continues to smoke. REVIEW OF SYSTEMS: Not obtainable, currently intubated on the ventilator. Other history is noted that she has bone cancer in the left thigh, completed radiation treatment, being treated by [facility]. Gutierrez [facility]. PHYSICAL EXAMINATION: GENERAL: It was a critically ill-appearing patient in respiratory distress. Unable to lay anymore than about a 45-degree angle and was having difficulty breathing very uncomfortable and becoming less lucid. She had required intubation very quickly. Her blood pressure, initially was hypotensive in the emergency room, but she responded to dopamine, blood pressures was 130 systolic on dopamine 10 mcg per kg per minute, but the heart rates in the mid 40s. NECK: Neck vein somewhat distended even at 45 degrees. LUNGS: Reveal some diffuse rhonchi expiratory. Some mild wheezing expiratory. HEART: Soft systolic murmur right upper sternal border, 2/6. ABDOMEN: Soft and nontender. EXTREMITIES: Cool and some mottled with bluish discoloration. DIAGNOSTIC STUDIES: EKG sinus rhythm with 2:[address] severe [address] elevation in the inferior leads. After informed consent was obtained, the patient was intubated. There was no family available at that point. She was taken to cardiac catheterization lab. At that time, access was obtained from the femoral vein and artery without difficulty. The left coronary system did not show obstructive disease. The LAD with no flow-limiting disease. Circumflex small distribution. The right coronary appeared to have injection. There is no flow at all down the coronary even at the very proximal area, looks like as much in a flush injection. Prolonged time was made to try to cannulate the coronary. There was one place for it looked like it probably had been the previous occluded area. A wire was used gently to try to probe that, but the wire would not go. There was calcium in that area. Flush injections were done in multiple places to try to find an origin area. There was none definitively found as mentioned that the soft wire was used to probe this gently but no artery could be cannulated. After prolonged attempts, left ventriculogram was done and a temporary pacemaker was placed. ASSESSMENT: 1. Acute myocardial infarction. 2. Flush injection of the right coronary artery, unable to cross that lesion. 3. Heart block. Temporary pacemaker placed. Prognosis guarded. 4. Also, history of lung cancer and cancer in the left thigh according to the notes. 5. Very critically ill patient. Job ID: [id number]
[2019-07-18 04:28] LABS: Puncture Site LINE
[2019-07-18] MEDS ORDERED: Sodium Chloride 0.9% 500 ML IV SCH (05:45)
[2019-07-18 06:06] LABS: CKMB 74.8 ng/mL (0-6.6)
[2019-07-18] MEDS ORDERED: DOPamine 400 MG/D5W 250 ML 250 ML IVPB SCH (06:45)
[2019-07-18] MEDS: Sodium Chloride 0.9% 1,000 ML IV SCH ×4 (07:28→20:55)
[2019-07-18 07:50] LABS: Actual Bicarbonate (HCO3a) 23.6 mEq/L (22-28); Base Excess (BEa) -0.7 mEq/L (-2.0 to +3.0); CO2 Tension 37.4 mmHg (35.0-45.0); Calcium, Ionized 1.03 mmol/L (1.12-1.30); Carboxyhemoglobin (COHb) 1.6 gm% (0.0-3.0); Hemoglobin (Hb) 9.6 g/dL (12.0-16.0); O2 Tension (PaO2) 132.6 mmHg (> 70.0); Potassium - ABG Lab 3.09 mmol/L (3.70-5.30); pH, Arterial 7.42 (7.35-7.45)
[2019-07-18 07:51] LABS: Puncture Site ALINE
--- NOTE | 2019-07-18 08:04 | RAD ---
PORTABLE CHEST: INDICATION: STEMI. FINDINGS: The lungs appear clear of infiltrate. Heart is mildly prominent. Vascular markings are within dionicio l range. A MediPort-type catheter via the left subclavian has tip crossing the midline and overlying the right upper chest which would indicate position in the right subclavian. IMPRESSION: No acute lung process. POS: [facility]
--- NOTE | 2019-07-18 08:08 | RAD ---
PORTABLE CHEST: INDICATION: Post intubation. FINDINGS/IMPRESSION: ET tube has been placed. The tip is above the betsy. NG tube has been placed. Lung daniel remain clear. No acute interval change. POS: [facility]
[2019-07-18] MEDS ORDERED: Ventilator Sedation Protocol 1 EACH FS ONE (08:11)
[2019-07-18] MEDS ORDERED: Lorazepam 2 MG/ML VIAL SLOW IVP PRN (08:21)
[2019-07-18] MEDS ORDERED: Propofol 1,000 MG/100 ML VIAL IV PRN (08:21)
[2019-07-18] MEDS ORDERED: Morphine 2 MG/ML SYRINGE SLOW IVP PRN (08:21)
[2019-07-18] MEDS ORDERED: Propofol BOLUS 1,000 MG/100 ML VIAL IV PRN (08:21)
[2019-07-18] MEDS ORDERED: Fentanyl BOLUS 250 ML IVPB PRN (08:21)
[2019-07-18] MEDS ORDERED: fentaNYL Citrate/PF 2,000 MCG in Sodium Chloride 0.9% 60 ML IV SCH (08:21)
--- NOTE | 2019-07-18 08:41 | CON ---
DATE OF CONSULTATION: 07/18/2019 This is 35 minutes of critical care time. CONSULTING PHYSICIAN: Nadeem Felton MD HISTORY OF PRESENT ILLNESS: This is a 74-year-old, who was admitted with a myocardial infarction of the right coronary artery. The lesion was unable to be opened at cardiac catheterization last night. She had 2:1 AV block and had a transvenous pacemaker placed. She is now on mechanical ventilation. She has previously been seen by Dr. Justin in my group. She has a history of a stage I lung cancer requiring a right upper lobe lobectomy in 2018. With that surgery, she was on prolonged mechanical ventilation and eventually necessitated a tracheostomy tube and a feeding tube and was sent to an LTAC, where she was weaned off mechanical ventilation. PAST MEDICAL HISTORY: 1. Previous leg tumor. 2. History of bilateral carotid artery disease. 3. Left ventricular hypertrophy. 4. Aortic sclerosis. ALLERGIES: NONE. MEDICATIONS: Prior to admission; 1. Sertraline. 2. Losartan. 3. Amlodipine. 4. Ibuprofen. SOCIAL HISTORY: Apparently, continues to smoke. REVIEW OF SYSTEMS: Unobtainable as the patient is currently on mechanical ventilation. PHYSICAL EXAMINATION: VITAL SIGNS: Pulse 70, blood pressure 136/81, O2 saturation 100%, and temperature 97.4. GENERAL: She is on mechanical ventilation without sedation. Appears calm. HEENT: Unremarkable. NECK: No adenopathy or JVD. CHEST: Clear to auscultation. CARDIAC: S1 and S2 paced. ABDOMEN: Soft and nontender. EXTREMITIES: No clubbing, cyanosis, or edema. LABORATORY DATA: PH of 7.42, pCO2 of 37, pO2 of 132 on SIMV rate 16, tidal volume 450, PEEP 5, pressure support 10, and FiO2 of 50%. White blood cell count 12.3, hematocrit 25.4, and platelet count 255. Sodium 135, potassium 3.6, chloride 101, CO2 of 14, anion gap 24, BUN 23, creatinine 1.5, and glucose 101. Troponin 38.2. IMAGING DATA: Chest x-ray shows some cardiomegaly. No infiltrate. She has an old MediPort in place in the left chest. ASSESSMENT: 1. Acute myocardial infarction. 2. The patient unable to have the affected artery opened during cardiac catheterization. 3. Chronic obstructive pulmonary disease. 4. Previous history of tracheostomy and feeding tube placement. 5. Remote history of operable lung cancer, now with extensive metastatic disease PLAN: At the current time, she is stable on mechanical ventilation. I will speak with Dr. Felton when he arrives for the cardiac disposition. It is noted on recent PET scan she has severe metastatic disease to bone. Job ID: [id number] [facility]
[2019-07-18] MEDS ORDERED: Aspirin Chewable 81 MG TAB PER TUBE SCH (09:00)
[2019-07-18 09:10] LABS: #Eosinphils 0.1 thou/uL (0.0-0.7); #Lymphocytes 0.8 thou/uL (1.20-3.40); #Neutrophils 13.8 thou/uL (1.40-6.50); %Eosinophils 0.8 % (0.0-10.0); %Lymphocytes 4.9 % (21.0-51.0); %Monocytes 6.3 % (0.0-10.0); %Neutrophils 87.9 % (42.0-75.0); Hemoglobin 9.1 g/dL (12.0-16.0); Mean Corpuscular HGB CONC 31.6 g/dL (32.0-36.0); Mean Corpuscular Hemoglobin 28.6 pg (27.0-31.0); Mean Corpuscular Volume 90.7 fL (78.0-98.0); Mean Platelet Volume 8.2 fL (7.4-10.4); Platelet Count 273 thou/uL (130-400); RBC Distribution Width 26.1 % (11.5-14.5); Red Blood Cell (RBC) Count 3.17 mill/uL (4.20-5.40); White Blood Cell (WBC) Count 15.6 thou/uL (4.8-10.8)
[2019-07-18 09:19] LABS: ALT (SGPT) 231 U/L (8-55); AST (SGOT) 774 U/L (5-34); Albumin 2.5 g/dL (3.4-4.8); Alkaline Phosphatase 203 U/L (40-110); Anion Gap 15 mmol/L (10-20); BUN (Urea Nitrogen) 26 mg/dL (9.8-20.1); Bilirubin, Total 0.8 mg/dL (0.2-1.2); Calc. Creatinine Clearance 0 mL/min (70-130); Calcium 7.5 mg/dL (7.8-10.44); Carbon Dioxide 24 mmol/L (23-31); Chloride 99 mmol/L (98-107); Estimated GFR-MDRD 28; Globulin 2.7 g/dL (2.4-3.5); Glucose 129 mg/dL (83-110); Potassium 3.3 mmol/L (3.5-5.1); Protein, Total 5.2 g/dL (6.0-8.3); Sodium 135 mmol/L (136-145)
[2019-07-18 09:22] LABS: Critical Call Chem Troponin I RESULT DECREASING; Troponin I 36.144 ng/mL (< 0.028)
[2019-07-18] MEDS ORDERED: Iopamidol 370 76% 50 ML VIAL FS ONE (10:04)
[2019-07-18] MEDS ORDERED: Iopamidol 370 76% 100 ML VIAL ONE (10:04)
[2019-07-18 10:21] LABS: Anisocytosis MODERATE=16-30 cells (100X) (0-5/hpf); Band 4 % (5-11); Lymphocytes 8 % (21-51); MDiff Complete? YES; Monocytes 8 % (0-10); Neutrophil 80 % (42-75); Polychromasia MODERATE = 3-4 cells (100X) (0-2/hpf); Schistocytes SLIGHT = 2-5 cells (100X) (0-1/hpf)
[2019-07-18 13:13] LABS: Hemoglobin 9.4 g/dL (12.0-16.0); Platelet Count 292 thou/uL (130-400)
[2019-07-18 14:55] VITALS: BP 135/63
[2019-07-18] MEDS ORDERED: EPINEPHRINE IN SOD CHLOR,ISO 1 MG/10 ML SYRINGE IV ONE (15:00)
[2019-07-18] MEDS ORDERED: Sodium Bicarb 50 MEQ/50 ML VIAL ONE (15:00)
[2019-07-18 15:12] VITALS: BMI 24.2
--- NOTE | 2019-07-18 18:41 | CON ---
DATE OF CONSULTATION: CONSULTING PHYSICIAN: Dr. Echevarria. HISTORY OF PRESENT ILLNESS: This patient is a 74-year-old female with a history of metastatic lung cancer, followed by Dr. Gutierrez. She has a lesion in her liver, which was subsequently biopsied and appeared to have different cytology than the lung tumor. She also had a PET scan revealing significant metastatic disease of the bone. She presented to the hospital with chest pain, ruled in for significant myocardial infarction, was taken to the [facility] by Dr. Echevarria, where she found the culprit lesion, but was unable to get past it or stent it or open it. Therefore, she is being medically managed. She is currently still ventilated and has been seen by Dr. Vazquez as well. She subsequently developed some AV block and has a transvenous pacemaker placed. She had a significant history for right upper lobectomy in 2018 requiring prolonged mechanical ventilation and a trach that was eventually successfully weaned. PAST MEDICAL HISTORY: Above mentioned lung cancer and the liver lesion with the PET scan from 07/05/2019 revealing severe worsening of diffuse osseous metastatic disease and some nonspecific hypermetabolic activity in the right lobe of the liver, possibly representing metastatic disease as well. She has a history of some LVH, aortic stenosis, and COPD. SURGICAL HISTORY: Carotid endarterectomy, lobectomy, and lung biopsy. FAMILY HISTORY: Not obtained. SOCIAL HISTORY: Again not obtained from the patient as she remains ventilated. The records indicate that she does continue to smoke. REVIEW OF SYSTEMS: Unobtainable. ALLERGIES: CIPRO, OFLOXACIN, ASPIRIN, DIAZEPAM, AND IBUPROFEN. HOME MEDICATIONS: Just coming in from her primary care provider's office, but appeared to be pain medications and rosuvastatin, sertraline, and lisinopril as the primary therapeutic agents. PHYSICAL EXAMINATION: VITAL SIGNS: Pulse 72, respirations 16, O2 saturation 93%, and blood pressure 121/55. GENERAL APPEARANCE: The patient is intubated. She is not sedated, but she is a bit somnolent. HEENT: Pupils are constricted. NECK: Supple and symmetric. HEART: Regular rate and rhythm without murmurs. LUNGS: Have scattered rales throughout all lung daniel with some upper airway secretion noise. ABDOMEN: Soft, nontender, and nondistended. Positive bowel sounds. No masses. No organomegaly. EXTREMITIES: No edema. LABORATORY DATA: From today, white count is 15.6, hemoglobin is 9.1, and platelets 273. Sodium 135, potassium 3.3, chloride 99, CO2 is 24, BUN 26, creatinine 1.75, glucose 129, and calcium 7.5. AST is 774, ALT is 231, alkaline phosphatase is 203. Troponin peaked at 38.28. Chest x-ray from today reveals nothing acute. IMPRESSION AND PLAN: 1. ST-elevation myocardial infarction, status post catheterization with lesion that is not amenable to intervention, managed by Cardiology. 2. Acute respiratory failure requiring ventilator support, followed by Pulmonary/Critical Care. 3. Acute on chronic kidney disease. The patient's GFR has typically been in the 80s. It is now 28 down from 32 yesterday and down from 37 on 07/08 and appears to be acute on gradual worsening. She has been receiving a significant amount of fluid input and her urine output has been poor. May eventually need to give some additional Lasix, especially with her poor albumin. 4. Elevated liver enzymes. These are trending upward. She certainly appears to have a metastatic lesion in the liver or a 2nd primary in the liver. She may have some shock to the liver from the acute myocardial infarction. We will need to continue to monitor. 5. Leukocytosis with no evidence of active infection. 6. Anemia. The patient's most recent hemoglobin prior to this admission was in February. At that time, her hemoglobin was 12.6. There apparently was some mention of some black stools, although it is not clear that actually came from the patient. I discussed with nursing. I am told she has guaiac ordered, but is yet to have a bowel movement. We will continue to follow with that. 7. Disposition. We will need to find out from Oncology what exactly the patient's overall prognosis is. I do not believe she is a candidate for bypass type procedure in light of the cancer. We will ask the Palliative Care team to see the patient as well. I did talk to the patient's granddaughters and granddaughter's about the overall situation. Certainly at this point, she has multiple organs that are not healthy including the lungs, the heart, the liver, and the kidneys. We will need to re-evaluate her urine output and her labs tomorrow, which will help us determine in which direction those are trending. Job ID: [id number]
--- NOTE | 2019-07-18 20:35 | EKG ---
Test Reason : Blood Pressure : / mmHG Vent. Rate : 070 BPM Atrial Rate : 100 BPM P-R Int : 000 ms QRS Dur : 184 ms QT Int : 522 ms P-R-T Axes : 000 267 086 degrees QTc Int : 563 ms Normal sinus rhythm with complete heart block Ventricular-paced rhythm Abnormal ECG When compared with ECG of 09-APR-2019 10:36, (Unconfirmed) Electronic ventricular pacemaker has replaced Sinus rhythm Confirmed by PITER BATISTA, SOrlando ([id number]) on 07/18/2019 8:34:38 PM Referred By: KEILY Confirmed By:DR. Janette DUMAS MD
[2019-07-18] MEDS ORDERED: Famotidine/PF 20 mg/2ml Vial SLOW IVP SCH (21:00)
[2019-07-18 23:02] VITALS: TEMP 97.9
[2019-07-19 04:01] LABS: Actual Bicarbonate (HCO3a) 9.4 mEq/L (22-28); Base Excess (BEa) -18.8 mEq/L (-2.0 to +3.0); CO2 Tension 30.7 mmHg (35.0-45.0); Calcium, Ionized 0.91 mmol/L (1.12-1.30); Carboxyhemoglobin (COHb) 0.7 gm% (0.0-3.0); Hemoglobin (Hb) 10.3 g/dL (12.0-16.0); O2 Tension (PaO2) 191.3 mmHg (> 70.0); Potassium - ABG Lab 4.86 mmol/L (3.70-5.30)
[2019-07-19 04:13] LABS: ALV-art Gradient 126.825 (0-20); Puncture Site LINE; pH, Arterial 7.11 (7.35-7.45)
[2019-07-19] MEDS ORDERED: Sodium Bicarbonate 70 MEQ in Sodium Chloride 0.45% 1,000 ML IV SCH (04:45)
[2019-07-19 04:55] LABS: Actual Bicarbonate (HCO3a) 11.9 mEq/L (22-28); Base Excess (BEa) -13.4 mEq/L (-2.0 to +3.0); Calcium, Ionized 0.78 mmol/L (1.12-1.30); Hemoglobin (Hb) 9.4 g/dL (12.0-16.0); O2 Tension (PaO2) 231.1 mmHg (> 70.0); Potassium - ABG Lab 5.42 mmol/L (3.70-5.30); pH, Arterial 7.28 (7.35-7.45)
[2019-07-19 04:56] LABS: CO2 Tension 25.8 mmHg (35.0-45.0)
[2019-07-19 04:57] LABS: Puncture Site ALINE
--- NOTE | 2019-07-19 05:14 | PDOC.EVN ---
Event Note - Event Note Event Note: Code Blue Note At 0437 code blue was called. Per patient nurse patients blood pressure started to drop shortly before hand and pulse was lost. She is s/p cath where inoperable CAD was diagnosed. Upon arrival to patient's room CPR was in progress and 1 round of epi had been given. CPR continued for multiple rounds and patient received 2 more doses of epi. Rhythm during the entire code was PEA until ROSC was achieved. EKG immediately after code was c/w inferior acute OH which was unchanged from admission diagnosis. Blood pressure initially was 280/ 110 per R fem a-line, thus dopamine drip was dc'd. BP normalized shortly after. Family was called to bedside and updated on situation, MPOA was en route at time of this note.
[2019-07-19 05:38] LABS: Band 4 % (5-11); Hemoglobin 9.5 g/dL (12.0-16.0); Hypochromia SLIGHT = 6-15 cells (100X) (0-5/hpf); Lymphocytes 4 % (21-51); MDiff Complete? YES; Mean Corpuscular HGB CONC 30.1 g/dL (32.0-36.0); Mean Corpuscular Hemoglobin 29.3 pg (27.0-31.0); Mean Corpuscular Volume 97.5 fL (78.0-98.0); Monocytes 4 % (0-10); Neutrophil 88 % (42-75); Platelet Count 251 thou/uL (130-400); Platelet Morphology Comment Appears Adequate; RBC Distribution Width 27.2 % (11.5-14.5); Red Blood Cell (RBC) Count 3.24 mill/uL (4.20-5.40); White Blood Cell (WBC) Count 23.7 thou/uL (4.8-10.8)
[2019-07-19 05:41] LABS: Anion Gap 30 mmol/L (10-20); BUN (Urea Nitrogen) 30 mg/dL (9.8-20.1); Calc. Creatinine Clearance 16 mL/min (70-130); Calcium 6.5 mg/dL (7.8-10.44); Carbon Dioxide 10 mmol/L (23-31); Chloride 101 mmol/L (98-107); Estimated GFR-MDRD 19; Glucose 8 mg/dL (83-110); Magnesium 2.6 mg/dL (1.6-2.6); Potassium 5.4 mmol/L (3.5-5.1); Sodium 136 mmol/L (136-145)
[2019-07-19 06:03] LABS: Lactic Acid 15.8 mmol/L (0.5-2.2)
--- NOTE | 2019-07-19 08:57 | RAD ---
PORTABLE CHEST: Date: 07/19/19 HISTORY: Respiratory distress. COMPARISON: 07/18/19 study. FINDINGS: Heart size is enlarged. Endotracheal tube is in satisfactory position. Postoperative changes of the r ight lung are seen. NG tube is below the hemidiaphragm. IMPRESSION: Stable chest. POS: TPC
--- NOTE | 2019-07-19 18:50 | EKG ---
Test Reason : STAT Blood Pressure : / mmHG Vent. Rate : 180 BPM Atrial Rate : 267 BPM P-R Int : 000 ms QRS Dur : 076 ms QT Int : 322 ms P-R-T Axes : 000 134 110 degrees QTc Int : 557 ms Atrial fibrillation with rapid ventricular response with premature ventricular or aberrantly conducte d complexes Right axis deviation Low voltage QRS Septal infarct , age undetermined Inferior injury pattern ACUTE TX / STEMI Consider right ventricular involvement in acute inferior infarct Abnormal ECG When compared with ECG of 18-JUL-2019 04:20, Atrial fibrillation has replaced Electronic ventricular pacemaker Vent. rate has increased BY 110 BPM Confirmed by PITER BATISTA, DR. Savage ([id number]) on 07/19/2019 6:50:18 PM Referred By: KEILY Confirmed By:DR. Janette DUMAS MD
--- NOTE | 2019-07-28 01:47 | EKG ---
Test Reason : Blood Pressure : / mmHG Vent. Rate : 045 BPM Atrial Rate : 045 BPM P-R Int : 000 ms QRS Dur : 076 ms QT Int : 438 ms P-R-T Axes : 060 094 117 degrees QTc Int : 378 ms Marked sinus bradycardia with 1st degree A-V block Rightward axis ST elevation consider inferior injury or acute infarct * ACUTE [place] * Consider right ventricular involvement in acute inferior infarct No STEMI Abnormal ECG Confirmed by DHARMESH SHAH M.D. ([id number]), image editor PHILL DE GUZMAN ([id number]) on 07/28/2019 1:47:20 AM Referred By: Confirmed By:DHARMESH SHAH M.D.
--- NOTE | 2019-07-30 23:41 | PQF ---
[employer] Crystal Reports Winform ViewerFELIX FLANNERY KARSTEN MICHAUD MD [id number] CLINICAL DOCUMENTATION CLARIFICATION FORM: POST DISCHARGE Addendum to original discharge summary date: ____ Late entry note date: __ DATE: 07/31/2019 ATTN: KARSTEN MICHAUD MD Please exercise your independent, professional judgment in responding to the clarification form. Clinical indicators are provided on the bottom of this form for your review Please check appropriate box(s) to clarify if the following diagnosis has been ruled in or ruled out: Liver Shock [ ] Ruled in diagnosis [ ] Continue to treat [ ] Resolved [ ] Ruled out diagnosis [ ] Cannot rule out diagnosis [ ] Other diagnosis [ ] Unable to determine For continuity of documentation, please document condition throughout progress notes and discharge summary. Thank You. CLINICAL INDICATORS - SIGNS / SYMPTOMS / LABS -Elevated liver enzymes, there are trending upward-Consult report,07/18, Inna Mg MD -she certainly appears to have a metastatic lesion in the liver or a primary in the liver-Consult report,07/18, Inna Mg MD -she may have some liver shock to the liver from the acute myocardial infarction -Consult report,07/18, Inna Mg MD -she has lesion in her liver-Consult report,07/18, Inna Mg MD -ALT:231H, 67H-Laboratory, 07/18 -BP:121/55-Consult report,07/18, Inna Mg MD RISK FACTORS -Acute on chronic kidney disease-Consult report,07/18, Inna Mg MD -ST-elevated myocardial infarction-Consult report,07/18, Inna Mg MD TREATMENTS: -Sodium chloride.IV-MAR, 07/18 [employer] Crystal Reports Winform Viewer(This form is maintained as a part of the permanent medical record) 2014 [employer]. All Rights Reserved Brian Olivarez [not provided] [not provided] CELESTE
== END 2019-07-19 06:08 | disposition expired ==
LOC: ERS 01:08 → SDC/OP 02:00 → CCU 02:53
PROVIDERS: ADMIT Internal Medicine Cardiovascular Disease; ATTEND Internal Medicine Cardiovascular Disease
PROC: 4A023N7 Measurement of Cardiac Sampling and Pressure, Left Heart, Percutaneous Approach (ICD-10-PCS; 2019-07-18)
PROC: B2111ZZ Fluoroscopy of Multiple Coronary Arteries using Low Osmolar Contrast (ICD-10-PCS; 2019-07-18)
PROC: B2151ZZ Fluoroscopy of Left Heart using Low Osmolar Contrast (ICD-10-PCS; 2019-07-18)
PROC: 5A1213Z Performance of Cardiac Pacing, Intermittent (ICD-10-PCS; 2019-07-18)
PROC: 5A1935Z Respiratory Ventilation, Less than 24 Consecutive Hours (ICD-10-PCS; 2019-07-18)
PROC: 0BH17EZ Insertion of Endotracheal Airway into Trachea, Via Natural or Artificial Opening (ICD-10-PCS; 2019-07-18)
PROC: 5A12012 Performance of Cardiac Output, Single, Manual (ICD-10-PCS; principal; 2019-07-19)
DX: I21.19 ST elevation (STEMI) myocardial infarction involving other coronary artery of inferior wall (principal); J96.00 Acute respiratory failure, unspecified whether with hypoxia or hypercapnia; N18.6 End stage renal disease; C34.90 Malignant neoplasm of unspecified part of unspecified bronchus or lung; C79.51 Secondary malignant neoplasm of bone; C78.7 Secondary malignant neoplasm of liver and intrahepatic bile duct; I12.0 Hypertensive chronic kidney disease with stage 5 chronic kidney disease or end stage renal disease; I35.0 Nonrheumatic aortic (valve) stenosis; J44.9 Chronic obstructive pulmonary disease, unspecified; I44.30 Unspecified atrioventricular block; N28.9 Disorder of kidney and ureter, unspecified; D63.1 Anemia in chronic kidney disease; Z93.0 Tracheostomy status; Z88.6 Allergy status to analgesic agent; Z88.1 Allergy status to other antibiotic agents; Z88.8 Allergy status to other drugs, medicaments and biological substances
CPT/HCPCS: 31500; 33210; 36415; 51702; 71045; 76942; 80048; 80053; 82553; 82805; 83605; 83690; 83735; 84100; 84484; 85025; 85347; 85610; 85730; 90471; 90662; 93005; 93010; 93458; 93567; 94002; 94003; 94640; 94760; 96374; 96375; 99152; 99153; 99213; C1769; C1887; G0008; G0463; J1265; J1644; J2001; J2250; J2704; J2720; J3010; J7620; Q9967; S0028